=== PATIENT | female | born 1960 | race American Indian/Alaskan Native ===

== ENCOUNTER 2017-03-25 06:15 | Inpatient (IN) | payer MEDICARE, MEDICAID ==
[2017-03-17 09:26] VITALS: BMI 39.0
[2017-03-25] MEDS ORDERED: Liquid Adhesive TOP ONE (07:47)
[2017-03-25] MEDS ORDERED: Bupivacaine 0.5% Inj(30mL) ONE (07:47)
[2017-03-25] MEDS ORDERED: Lidocaine 1% Inj (20ml) ONE (07:47)
[2017-03-25] MEDS ORDERED: Propofol 10 mg/ml Inj (20 ML) ONE (07:49)
[2017-03-25] MEDS ORDERED: Midazolam 2 MG/2 ML VIAL ONE (07:49)
[2017-03-25] MEDS ORDERED: Rocuronium 10 mg/ml (5 ml) ONE (08:16)
[2017-03-25] MEDS ORDERED: Phenylephrine 10 mg/ml Inj ONE (09:02)
[2017-03-25] MEDS ORDERED: Labetalol 5 mg/ml Inj 20ML ONE (10:05)
[2017-03-25] MEDS ORDERED: Morphine 1 mg/ml preservative-free Inj(Duramorph) ONE (10:51)
[2017-03-25] MEDS ORDERED: Sevoflurane - Inhalation Anesthetic Liq (250 ml) ONE (11:37)
[2017-03-25] MEDS ORDERED: Neostigmine Methylsulfate 3mg/3ml Syringe IV ONE (11:46)
[2017-03-25] MEDS ORDERED: Bupivacaine 0.25% Inj(30mL) ONE ×2 (11:54→12:10)
[2017-03-25] MEDS ORDERED: Desflurane Inhalation Anesthetic Liq (240 ml) ONE (11:58)
[2017-03-25] MEDS ORDERED: ceFAZolin 2 GM in Sodium Chloride 0.9% 100 ML IVPB SCH (13:30)
[2017-03-25] MEDS ORDERED: HYDROmorphone 0.5 mg/0.5 ml ISec IVP PRN (13:37)
--- NOTE | 2017-03-25 13:40 | PCM.SURG1 ---
Surgeon's Initial Post Op Note - Surgeon's Notes Surgeon: Dr. Owusu Art Handler: J Luis Jimenez, PGY-3; Claudia Jimenez, PGY-1 Type of Anesthesia: General LMA, Block Regional (popliteal block) Anesthesia Administered By: Dr. Dukes Pre-Operative Diagnosis: Left foot- painful collapsing pes planovalgus deformity secondary to posterior tibial tendon dysfunction; painful bunion deformity; equinus deformity Operative Findings: See dictation. Hemostasis: PTT at 325mmHg. Materials: Synthes 6.5x 45mm partially threaded cannulated screw; [employer] AlloPure tricortical Barajas wedge size 8; Synthes 3.0x30mm and 3.0x40mm cannulated screws ; [employer] Biotenodesis screw size [id number] Post-Operative Diagnosis: Same as above Operation Performed: Left foot- medial calcaneal slide osteotomy with screw fixation; Barajas calcaneal osteotomy with graft insertion; Lapidus with screw fixation; lateral release of the 1st interspace and medial 1st MPJ capsulorraphy ; FDL transfer with biotenodesis screw; tendoachilles lengthening Specimen/Specimens Removed: None Estimated Blood Loss: EBL {In ML}: 20 Blood Products Given: N/A Drains Used: No Drains Post-Op Condition: Good Date of Surgery/Procedure: 03/25/17 Time of Surgery/Procedure: 09:00
[2017-03-25] MEDS ORDERED: Lactated Ringer's 1,000 ML IV SCH (13:45)
--- NOTE | 2017-03-25 14:40 | RAD ---
PROCEDURE: Left heel HISTORY: s/p Left foot surgery COMPARISON: TECHNIQUE: Two views through a plaster cast FINDINGS: There is a large screw running longitudinally through the calcaneus fixating a calcaneal fracture. Screws are also seen in the midfoot IMPRESSION: As above
--- NOTE | 2017-03-25 14:41 | RAD ---
PROCEDURE: Left foot HISTORY: s/p Left foot surgery COMPARISON: TECHNIQUE: Three views were obtained through plaster cast FINDINGS: There is a large screw fixating a calcaneal fracture. There are 2 crossing screws at the base of the 1st metatarsal and 1st cuneiform IMPRESSION: As above
--- NOTE | 2017-03-25 19:50 | CP.PCM.HP ---
History of Present Illness - History of Present Illness History of Present Illness: CC: S/P left foot surgery Patient is a 56 y/o with pmhx of copd, htn, hld, ulcerative colitis, neuropathy , fibromyalgia whom presented today for left foot surgery. Patient states she has been having foot pain for many years, tried pain management with no relief thus decided to under surgery today. Patient is admitted for post op observation. Patient had Left foot- medial calcaneal slide osteotomy with screw fixation; Barajas calcaneal osteotomy with graft insertion; Lapidus with screw fixation; lateral release of the 1st interspace and medial 1st MPJ capsulorraphy; FDL transfer with biotenodesis screw; tendoachilles lengthening. Patient states she' s doing well post op. States the left foot is numb, currently no pain. Denies nausea, vomiting or diarrhea, no belly pain. No fever or chills. No sob or cp. PMHx: copd, htn, hld, ulcerative colitis, neuropathy, fibromyalgia PSHx: partial thyroidectomy, right ear surgery, FMHx: non contributory Social: smokes 2-3 cigarettes per day, denies alcohol or illicit drug use. retired, able to ambulate before surgery. Home meds: as per chart Allergy: sulfa Present on Admission - Present on Admission Any Indicators Present on Admission: No History of DVT/PE: No History of Uncontrolled Diabetes: No Urinary Catheter: No Decubitus Ulcer Present: No History Surgical Site Infection Following: Orthopedic Procedures Review of Systems - Review of Systems All systems: reviewed and no additional remarkable complaints except Review of Systems: 12 point ROS reviewed, all negative except as per HPI. Past Patient History - Infectious Disease Hx of Infectious Diseases: None - Tetanus Immunizations Tetanus Immunization: Unknown - Past Medical History & Family History Past Medical History?: Yes - Past Social History Smoking Status: Light Smoker < 10 Cigarettes Daily Alcohol: None Drugs: Denies Home Situation {Lives}: With Family - CARDIAC Hx Pacemaker: No - PULMONARY Hx Respiratory Disorders: No - NEUROLOGICAL Hx Paralysis: No - HEENT Hx HEENT Problems: No - RENAL Hx Chronic Kidney Disease: No - ENDOCRINE/METABOLIC Hx Endocrine Disorders: No - HEMATOLOGICAL/ONCOLOGICAL Hx Blood Transfusions: No - INTEGUMENTARY Hx Dermatological Problems: No - MUSCULOSKELETAL/RHEUMATOLOGICAL Hx Musculoskeletal Disorders: Yes - GASTROINTESTINAL Hx Gastrointestinal Disorders: Yes Hx Colitis: Yes - GENITOURINARY/GYNECOLOGICAL Hx Genitourinary Disorders: No - PSYCHIATRIC Hx Emotional Abuse: No Hx Physical Abuse: No Hx Substance Use: No - SURGICAL HISTORY Hx Surgeries: Yes - ANESTHESIA Hx Anesthesia Reactions: Yes ("VERY TIRED AFTER EGD 10/04/14"/ PERIODS OF NAUSEA ) Hx Malignant Hyperthermia: No Meds Allergies/Adverse Reactions: Allergies Allergy/AdvReac Type Severity Reaction Status Date / Time Sulfa (Sulfonamide Allergy Severe RASH Verified 03/25/17 21:03 Antibiotics) Physical Exam - Constitutional Appears: No Acute Distress - Head Exam Head Exam: ATRAUMATIC, NORMAL INSPECTION, NORMOCEPHALIC - Eye Exam Eye Exam: EOMI, Normal appearance, PERRL. absent: Scleral icterus Pupil Exam: NORMAL ACCOMODATION - ENT Exam ENT Exam: Mucous Membranes Moist - Neck Exam Neck exam: Positive for: Normal Inspection - Respiratory Exam Respiratory Exam: Clear to Auscultation Bilateral, NORMAL BREATHING PATTERN. absent: Rales, Rhonchi, Wheezes, Respiratory Distress, Stridor - Cardiovascular Exam Cardiovascular Exam: REGULAR RHYTHM, RRR, +S1, +S2. absent: Gallop, JVD, Rubs, Systolic Murmur - GI/Abdominal Exam GI & Abdominal Exam: Normal Bowel Sounds, Soft. absent: Diminished Bowel Sounds , Distended, Firm, Guarding, Rebound, Rigid, Tenderness - Extremities Exam Additional comments: Normal inspection of the right foot, no pitting edema. Left foot and leg with clean dressing, no overt signs of bleeding. - Back Exam Back exam: NORMAL INSPECTION - Neurological Exam Neurological exam: Alert, Oriented x3 - Psychiatric Exam Psychiatric exam: Normal Affect, Normal Mood - Skin Skin Exam: Dry, Normal Color, Warm Results - Vital Signs Recent Vital Signs: Last Vital Signs Temp 98.5 F 03/25/17 16:37 Pulse 72 03/25/17 17:37 Resp 14 03/25/17 17:37 BP 149/82 03/25/17 17:37 Pulse Ox 98 03/25/17 17:37 Assessment & Plan - Assessment and Plan (Free Text) Assessment: Patient is a 56 y/o with pmhx of copd, htn, hld, ulcerative colitis, neuropathy , fibromyalgia whom presented today for left foot surgery. Patient is being admitted for post op observation. Plan: 1)Left foot- painful collapsing pes planovalgus deformity secondary to posterior tibial tendon dysfunction; painful bunion deformity; equinus deformity S/P repair. - post op care as per podiatry service - pain management - PT/OT - On Lovenox for dvt prophylaxis 2) HTN- continue with lisinopril, and Lopressor. 3) COPD- stable - continue with duoneb/Ventolin prn, symbicort, pulmocort, and spiriva. 4) Ulcerative colitis - continue with mesalamine supp 5) fibromyalgia and neuropathy- continue with lyrica, and percocet prn 6) Tobacco cessation: nicotine patch. 7) Gi prophylaxis: Pepcid Patient seen, examined and case discussed with Dr Suarez. - Date & Time Date: 03/25/17 Time: 20:05
[2017-03-25] MEDS ORDERED: Albuterol-Ipratrop 3 mg / 0.5 (3 ml) UD IH PRN (20:51)
[2017-03-25] MEDS ORDERED: Albuterol HFA 90 mcg/actuation (8 g) IH PRN (20:51)
[2017-03-25] MEDS ORDERED: Oxycodone/Acetaminophen 10/325 mg Tab PO PRN (20:51)
[2017-03-25] MEDS ORDERED: Pneumococcal 23-Valent Vaccine IM ONE (21:28)
[2017-03-25] MEDS ORDERED: Influenza Vaccine 60 mcg/0.5 mL SYR (4YR UP) IM ONE (21:28)
[2017-03-25] MEDS ORDERED: Albuterol 0.5% Inhal Sol (2.5 mg/0.5 ml) UD IH PRN (21:37)
[2017-03-25] MEDS: Budesonide 3 mg ER Cap PO SCH (23:08)
[2017-03-26] MEDS ORDERED: Albuterol 0.5% Inhal Sol (2.5 mg/0.5 ml) UD IH SCH (02:00)
[2017-03-26] MEDS ORDERED: Albuterol 0.083% Inhal Sol (2.5 mg/3 mL) UD INH SCH (02:00)
[2017-03-26 07:47] LABS: BASO # 0.01 K/mm3 (0.0-2.0); BASO % 0.1 % (0.0-3.0); GRAN # 8.82 (1.4-6.5); GRAN % 78.6 % (50.0-68.0); HEMOGLOBIN 10.7 g/dL (12.0-16.0); LYMPH # 1.7 (1.2-3.4); MEAN CELL VOLUME 82.6 fl (80.0-105.0); MEAN CORPUSCULAR HEMOGLOBIN 27.7 pg (25.0-35.0); MEAN CORPUSCULAR HGB CONC 33.5 g/dl (31.0-37.0); MEAN PLATELET VOLUME 10.7 fl (7.0-11.0); MONO # 0.7 (0.1-0.6); MONO % 6.3 % (1.0-6.0); RBC 3.86 10^6/uL (3.5-6.1); RED CELL DISTRIBUTION WIDTH 13.8 % (11.5-14.5); WHITE BLOOD COUNT 11.2 10^3/ul (4.5-11.0)
[2017-03-26 08:05] LABS: BLOOD UREA NITROGEN 23 mg/dL (7-21); CALCIUM 9.2 mg/dL (8.4-10.5); GFR AFRICAN-AMERICAN > 60; GFR NON-AFRICAN AMERICAN 57
[2017-03-26] MEDS ORDERED: Non Formulary Medication (Budesonide/Formoterol Fumarate [Symbicort 160-4.5 Mcg Inhaler] 2 IH SCH (10:00)
[2017-03-26] MEDS: Enoxaparin 40 mg Syringe SC SCH (10:10)
[2017-03-26] MEDS: Budesonide 3 mg ER Cap PO SCH ×2 (10:15→18:06)
[2017-03-26] MEDS: Fluticasone Nasal 50 mcg/Spray NS SCH (10:15)
[2017-03-26] MEDS: Tiotropium 18 mcg Cap For Inhalation IH SCH (10:16)
--- NOTE | 2017-03-26 15:53 | RAD ---
PROCEDURE: Fluoroscopy up to 1 hour HISTORY: O.R.I.F. LEFT FOOT COMPARISON: TECHNIQUE: Fluoroscopy was provided in the operating room. 93.2 seconds of fluoro time. Three images were submitted FINDINGS: Hardware is seen in the calcaneus and the base of the 1st metatarsal and cuneiform. IMPRESSION: As above
[2017-03-26] MEDS ORDERED: Oxycodone/Acetaminophen 10/325 mg Tab PO PRN (16:35)
--- NOTE | 2017-03-26 21:54 | PN ---
DATE: CHIEF COMPLAINT AND HISTORY OF PRESENT ILLNESS: Patient has no complaints of any chest pain, shortness of breath, or headaches. She states she does have pain in the left foot; her pain is controlled with medications. PHYSICAL EXAMINATION: VITAL SIGNS: Temperature 98.5, pulse of 71, blood pressure 122/82, respirations 20. GENERAL: The patient is lying in bed, flat, comfortable. HEENT: No oral lesion. Anicteric sclerae. Moist mucosa. NECK: No JVD, adenopathy, or thyromegaly. CARDIOVASCULAR: S1 and S2, regular. No murmurs, rubs, or gallops. LUNGS: Clear to auscultation bilaterally. No wheeze, rales, or rhonchi. ABDOMEN: Bowel sounds are positive, soft, nontender and nondistended. EXTREMITIES: No cyanosis, clubbing or edema. LABORATORY DATA: White count of 11.2, creatinine is 1.0. ASSESSMENT: 1. Status post medial calcaneal osteotomy, screw fixation. 2. Barajas calcaneal osteotomy, postop day #1 with graft insertion. 3. Ulcerative colitis. 4. Fibromyalgia. 5. Hypertension. 6. Dyslipidemia. 7. Severe chronic obstructive pulmonary disease. PLAN: The patient is currently comfortable. Patient is on albuterol, she is going to continue with Flonase. She is on Lipitor for dyslipidemia and she is on Lovenox for DVT prophylaxis. She is on a nicotine patch for smoking. She is on mesalamine for her ulcerative colitis. Patient is on lisinopril for her hypertension. She pain medications. Filemon Alexandra MD
[2017-03-27 07:45] LABS: BASO # 0.04 K/mm3 (0.0-2.0); BASO % 0.4 % (0.0-3.0); EOS # 0.3 (0.0-0.7); EOS % 2.4 % (1.5-5.0); GRAN # 5.63 (1.4-6.5); GRAN % 50.5 % (50.0-68.0); HEMOGLOBIN 12.1 g/dL (12.0-16.0); LYMPH # 4.6 (1.2-3.4); LYMPH % 41.1 % (22.0-35.0); MEAN CELL VOLUME 84.2 fl (80.0-105.0); MEAN CORPUSCULAR HEMOGLOBIN 27.7 pg (25.0-35.0); MEAN CORPUSCULAR HGB CONC 32.9 g/dl (31.0-37.0); MEAN PLATELET VOLUME 11.1 fl (7.0-11.0); MONO # 0.6 (0.1-0.6); MONO % 5.6 % (1.0-6.0); RBC 4.37 10^6/uL (3.5-6.1); WHITE BLOOD COUNT 11.2 10^3/ul (4.5-11.0)
[2017-03-27 08:00] LABS: BLOOD UREA NITROGEN 20 mg/dL (7-21); GFR AFRICAN-AMERICAN > 60; GFR NON-AFRICAN AMERICAN > 60
--- NOTE | 2017-03-27 08:42 | OP ---
PROCEDURE DATE: 03/26/2017 PREOPERATIVE DIAGNOSES: 1. Left foot painful and collapsing pes planovalgus deformity secondary to posterior tibial tendon dysfunction. 2. Left foot painful hallux abducto valgus deformity with first ray hypermobility secondary to midfoot collapse. 3. Left ankle painful and symptomatic equinus deformity. POSTOPERATIVE DIAGNOSES: 1. Left foot painful and collapsing pes planovalgus deformity secondary to posterior tibial tendon dysfunction. 2. Left foot painful hallux abducto valgus deformity with first ray hypermobility secondary to midfoot collapse. 3. Left ankle painful and symptomatic equinus deformity. NAME OF THE PROCEDURES: 1. Left foot medial displacement calcaneal osteotomy with screw fixation. 2. Left foot Barajas calcaneal osteotomy with graft insertion. 3. Left foot first metatarsal cuneiform incision with screw fixation, lateral release within in the first interspace and medial capsulorrhaphy of the first MPJ. 4. Left foot flexor digitorum longus tendon transfer using Bio-Tenodesis screw. 5. Left ankle Achilles tendon lengthening via triple hemisection of the tendon. SURGEON: Nayana Owusu DPM. BANKING TEACHER: J Luis Jimenez DPM, PGY3 and Lewis Jimenez DPM, PGY1. FINISH CLEANER: Dr. Dukes. ANESTHESIA: General with popliteal block. INDICATIONS: The patient is a 56-year-old female with past medical history of fibromyalgia with the above diagnoses. She presented to Dr. Owusu with a flexible flatfoot deformity, was then collapsed due to weakening of her posterior tibial tendon on the left foot. An MRI was ordered and it revealed a partial tear within her posterior tibial tendon. The patient has conservative treatment at this time and I request surgical intervention. The patient signed the consent after careful explanation of risks, benefits, complications and alternatives for surgical procedure. No guarantees were given nor implied. 2 g of IV Ancef were given to the patient prior to procedure. The patient's n.p.o. status was confirmed prior to taking the patient to the OR. PREPARATION: The patient was brought to the operating room and placed on the operating room table in supine position. Time-out was performed for identification of the correct patient and the correct procedure. After induction of general anesthesia, a well-padded pneumatic thigh tourniquet . The pneumatic thigh tourniquet was inflated to 325 mmHg and the procedure began. PROCEDURE #1: Left foot medial displacement calcaneal osteotomy with screw fixation. Attention was placed to the lateral aspect to the patient's left foot. Using surgical marking pen, intraoperative fluoroscopy and freer elevator present. An incision line was marked using a surgical marking pen. A #15 blade was used to make an approximately 5 cm oblique incision, starting 1 cm posterior to the tip of the lateral malleolus and 1 cm anterior to the Achilles tendon insertion. The incision of the calcaneus deep to the plantar fascia. The incision was deepened through the subcutaneous tissue using sharp and blunt dissection. Care was taken to identify and retract all vital neurovascular structures. All bleeders were cauterized and ligated as necessary. A left periosteal incision was made in the same direction as the original skin incision. The osteotomy site was adequately exposed by reflecting the periosteal both medially and laterally. At this time, a sagittal saw was used to create an oblique osteotomy of the calcaneus to lateral to medial. The depth of the saw blade was controlled with a approach. The osteotomy was completed through the medial cortex using an osteotome and mallet. At this time, the posterior calcaneal fragment was medially displaced manually and 0.062 inch K-wire was inserted across the osteotomy site for provisional fixation. AP, lateral, and hindfoot serial intraoperative x-rays were taken, and adequate medial transposition was appreciated. Next, using standard AO principle and technique, a Synthes 6.5 mm x 45 mm partially threaded cannulated screw was inserted across the osteotomy site with maximum compression noted. The screw was inserted percutaneously by making a small stab incision at the posterior aspect of the heel. Additional intraoperative x-rays were taken and it was confirmed that the posterior facet of the subtalar joint. The correction of the deformity was assessed at this time and was noted to be excellent with a significant reduction in hindfoot valgus deformity. A surgical site was now irrigated with a copious amount of sterile normal saline. Deep tissue closure was now performed using 2-0 Vicryl. The subcutaneous tissues were then reapproximated and coapted using 4-0 Monocryl, the skin was then reapproximated and coapted using 4-0 nylon, in an interrupted horizontal mattress suture technique. PROCEDURE #2: Left foot Barajas calcaneal osteotomy with graft insertion. Attention was directed to the lateral aspect of the left foot where an approximately 6-cm oblique incision was created at the lateral aspect approximately one fingerbreadth anterior to the sinus tarsi. The incision was made to include the calcaneocuboid joint which was marked using intraoperative fluoroscopy and freer elevator . The incision was then deepened through the subcutaneous tissues using sharp and blunt dissection. Care was taken to identify and retract all vital neurovascular structures. All bleeders were cauterized and ligated as necessary. At this time, the peroneal tendons and the extensor digitorum brevis muscle belly were visualized. Using a fresh #15 blade, a linear periosteal incision was created between the extensor digitorum brevis muscle belly and the peroneal tendons. The peroneal tendons were then gently retracted to keep them away from the operative field. The of the EDB muscle belly were then carefully reflected from the calcaneus in order to expose the dorsal of the bones of the osteotomy cut. At this time, the calcaneal cuboid joint was identified distally. The periosteum was then reflected both superiorly and inferiorly starting about 1 cm proximal to calcaneal cuboid joint. Next, using a sagittal saw, an osteotomy was created from lateral to medial within the calcaneus, approximately 1.5 cm proximal to the calcaneal cuboid joint. Care was taken to ensure that the medial cortex was preserved. Once the osteotomy was completed, a Hintermann retractor was placed with two 0.062 inch K-wires inserted around other side of the osteotomy. The osteotomy site was then gently distracted. A size 8 [employer] tricortical bone wedge was now inserted within the calcaneal osteotomy site. The bone wedge was then tamped flush against the bone surface using a bone tamp and a mallet. The Hintermann retractor and K-wires were now removed. At this time, lengthening of the lateral column of the patient's foot was appreciated with a significant reduction in forefoot and midfoot abduction. This was also confirmed using intraoperative fluoroscopy. The surgical wound was now irrigated with a copious amount of sterile normal saline. Deep tissue closure was now performed with 2-0 Vicryl. The subcutaneous tissues were then reapproximated and coapted using 4-0 Monocryl. The skin was then reapproximated and coapted using 4-0 nylon in an interrupted horizontal mattress suture technique. PROCEDURE#3: Left foot first metatarsal cuneiform incision with screw fixation, lateral release within in the first interspace and medial capsulorrhaphy of the first MPJ. Attention was then directed to the dorsomedial aspect of the foot. Intraoperative fluoroscopy was used to micheline the location of the first metatarsal cuneiform joint. A 5 cm linear longitudinal incision was created overlying the joint, medial to the EHL tendon. The dissection was deepened through the subcutaneous tissues using sharp and blunt dissection. Care was taken to identify and retract all vital neurovascular structures. All bleeders were cauterized and ligated as necessary. A linear periosteal incision was created overlying the joint. A Briseno elevator was used to reflect the periosteal tissues medially and laterally to expose the joint. Any plantar ligament soft tissue attachments were also released to mobilize the joint. Once adequate exposure and mobility of the joint was achieved, a sagittal saw was used to resect the cartilaginous surfaces of the distal aspect of the medial cuneiform and metatarsal base. Next, a 0.062 inch K-wire was then inserted into the distal aspect of the first metatarsal from medial to lateral to serve as a joystick to correct the deformity in central plane. The K-wire was used to invert the pronator first metatarsal to help reduce the . This corrected position was held in place, while two 0.062 inch K-wires were driven across the first metatarsal cuneiform incision site in a crisscross pattern for a temporary fixation. Intraoperative fluoroscopy was used to verify the alignment of the K-wires, and there was noted to an excellent alignment with no violation into the navicular cuneiform joint. Next, using standard AO principles and technique, two Synthes cannulated screws measuring 3.0 x 30 mm and 3.0 x 40 mm were inserted above the both K-wires across the incision site with excellent compression noted. The K-wires were then removed and final radiographs were taken to ensure proper alignment of the screws. Upon assessing the correction of the deformity, it was noted the hallus still appeared to be in a first metatarsal, the decision was now made to perform the lateral release within the first interspace to correct this. Using a fresh #15 blade, an approximately 1.5 cm linear incision was created within the first interspace. The incision was bluntly dissected down to the subcutaneous tissues and down to the level of the lateral aspect of the first MPJ capsule. The adductor tendon was identified and transected at its attachment to the proximal phalanx of the hallux. The lateral first MPJ capsule was incised and . The hallux was then to release the lateral soft tissue contractures; however a slight abduction decided to confirm a medial capsulorrhaphy of first MPJ to correct this. Using a #15 blade, an 1.5 cm incision was created over the medial aspect of the first MPJ. The incision was deepened to the subcutaneous tissues using sharp and blunt dissection. Care was taken to identify and retract all vital neurovascular structures. All bleeders were cauterized and ligated as necessary. A linear medial capsular incision was then created and a small wedge of the medial capsule was resected. The medial capsule was then reapproximated and coapted using 2-0 Vicryl. The thoroughly irrigated with copious amount of sterile normal saline. Upon assessment of the correction of the deformity, the hallux no longer appeared to be in an abducted position. The subcutaneous tissues were reapproximated and coapted using 4-0 Monocryl. The skin was then reapproximated and coapted using 4-0 nylon. PROCEDURE #4: Left foot flexor digitorum longus tendon transfer using a Bio-Tenodesis screw. Attention was now directed at the medial aspect of the patient's foot. procedure was now extended further proximally and plantarly to approximately 2 cm distal to the navicular tuberosity. The incision was deepened to the subcutaneous tissue using sharp and blunt dissection. Care was taken to identify and retract all vital neurovascular structures. All bleeders were cauterized and ligated as necessary. Resection was bluntly carried down to the level of the posterior tibial tendon insertion and tuberosity. was identified and was mobilized with running soft tissue attachment. The posterior tibial tendon was then gently retracted superiorly to find the FDL tendon sheath. Once it was visualized, small dissecting scissors were used to dissect through the sheath and follow the FDL tendon course as possible. The FDL tendon. A [place] drain was looped around the tendon . The FDL tendon was then transected just proximal to the level of the . A #2 FiberWire was then used to the distal aspect of the FDL tendon. The tendon was then incised using a was made to assess the lateral aspect of the midfoot. Using an appropriately sized reamer, the navicula was reamed over the inserted guide pin to create a for insertion of the Bio-Tenodesis screw. The guide pin was then removed. The tendon was then inserted into a nitinol loop and was inserted from medial to lateral within the navicula. A #2 FiberWire laterally to retract the tendon within the navicular bone tunnel with further maximum plantar flexion and inversion. A size 7.5 mm x 15 mm Arthrex Bio-Tenodesis screw was then inserted into the navicula medial to . At this time, excellent with a medial arch now further evident. Then surgical site was now irrigated with a copious amount of sterile normal saline. Deep tissue closure was performed with 2-0 Vicryl. The subcutaneous tissues were reapproximated and coapted using 4-0 Monocryl. The skin was then reapproximated and coapted using 4-0 nylon in an alternating simple and horizontal mattress suture technique. PROCEDURE#5: Left foot Achilles tendon pinning via triple hemisection of the tendon. Upon assessing the dorsiflexion range of motion of the left ankle, an equinus deformity was noted to be present with restriction of ankle dorsiflexion. It was decided to pursue an Achilles tendon lengthening procedure. Using a fresh #15 blade, a linear stab incision was created the Achilles tendon and approximately 2 cm proximal to its calcaneal insertion. The lateral fibers of the tendons were transected at . A second stab incision was created at approximately 1 cm proximal to the first one and the medial fibers of the Achilles tendon were transected. A third and final stab incision was created 1 cm proximal to the second one, and the lateral fibers were transected. The ankle was now forcibly dorsiflexed to adequately lengthen the tendon at all three transection sites. The correction of the deformity was assessed at this time and was noted to be excellent with ankle dorsiflexion beyond 90 degrees. Then stab incision sites were then irrigated with a copious amount of sterile normal saline. The incisions were then closed using 4-0 nylon. Approximately 10 mL of 0.5% Marcaine plain were used to block the saphenous nerve. All incision sites were then dressed with Xeroform, 4 x 4 gauze, ABD pads and Kerlix. A well-padded posterior splint was now applied to the left lower extremity while ensuring maintaining dorsiflexion. The attending Dr. Owusu was present throughout the entire case. Postoperative condition the patient tolerated the anesthesia with no complications. The patient was to the left lower extremity. This patient is to remain nonweightbearing to the left lower extremity with crutches. She is being admitted to the hospital for pain management and . The patient will be followed by Dr. Owusu while she remains in the hospital. She is to follow up with Dr. Owusu at her office on an outpatient basis upon discharge. J Luis Jimenez DPM Nayana Owusu DPM
[2017-03-27] MEDS: Enoxaparin 40 mg Syringe SC SCH (10:04)
[2017-03-27] MEDS: Budesonide 3 mg ER Cap PO SCH (10:05)
[2017-03-27] MEDS: Tiotropium 18 mcg Cap For Inhalation IH SCH (10:05)
[2017-03-27] MEDS: Fluticasone Nasal 50 mcg/Spray NS SCH (10:08)
--- NOTE | 2017-03-27 10:34 | PN ---
DATE: SUBJECTIVE: The patient has no complaints of any chest pain. No shortness of breath. No headaches or dizziness. PHYSICAL EXAMINATION VITAL SIGNS: Temperature is 99.2, pulse is 73, blood pressure 120/73, respirations 20. GENERAL: The patient is lying in bed, flat, comfortable. HEENT: No oral lesion. Anicteric sclerae. Moist mucosa. NECK: No JVD, adenopathy, or thyromegaly. CARDIOVASCULAR: S1 and S2, regular. No murmurs, rubs, or gallops. LUNGS: Clear to auscultation bilaterally. No wheeze, rales, or rhonchi. ABDOMEN: Bowel sounds are positive. Soft, nontender and nondistended. EXTREMITIES: No cyanosis, clubbing or edema. Left ankle is wrapped. ASSESSMENT 1. Status post medial calcaneal osteotomy, screw fixation. 2. Barajas calcaneal osteotomy, postoperative day #2 with graft insertion. 3. Ulcerative colitis, stable. 4. Fibromyalgia. 5. Hypertension. 6. Dyslipidemia. 7. Chronic obstructive pulmonary disease. 8. Chronic back pain. PLAN: The patient is receiving nebulizer treatments, is on Flonase. She is going to continue with budesonide. She is on Lipitor for dyslipidemia. She received a flu shot. She is on Lovenox for DVT prophylaxis. She is on Lyrica for her fibromyalgia. She is on the nicotine patch for her smoking. She is on mesalamine 4 g b.i.d. for her ulcerative colitis. She is on Spiriva. She is receiving pain medications with the Percocet. The patient is on a heart-healthy diet. Physical Therapy has evaluated the patient and stated the patient can go home with services. Filemon Alexandra MD
[2017-03-27] MEDS ORDERED: Albuterol 0.5% Inhal Sol (2.5 mg/0.5 ml) UD IH ONE (13:15)
[2017-03-27] MEDS ORDERED: Albuterol 0.5% Inhal Sol (2.5 mg/0.5 ml) UD IH SCH (14:00)
[2017-03-27] MEDS ORDERED: Albuterol 0.083% Inhal Sol (2.5 mg/3 mL) UD INH SCH (14:00)
--- NOTE | 2017-03-27 14:21 | CP.PCM.PN ---
Subjective - Date & Time of Evaluation Date of Evaluation: 03/27/17 Time of Evaluation: 14:13 - Subjective Subjective: Podiatric Surgery Pt was seen and evaluated at bedside in NAD. Relates minimal pain. Denies F/C/N/ V/SOB/CP. +void LE exam: Brisk CFT to all digits. AROM to all toes left foot. no pain upon calf palpation. Dressings with no strikethrough. c/d/i A/P: s/p POD#2 left foot pes planus reconstruction Medial calcaneal slide/Barajas/ [place]/DFL tendon transfer. doing well -Leave dressings c/d/i -continue NWB to affected foot with walker/scooter -Pt cleared from podiatry standpoint to be discharged home -Keflex PPX -Lovenox 40mg DVT PPX -follow up with me on thursday at the [facility] [place] [phone] -Appreciate inpt management. Pain meds as per Objective - Vital Signs/Intake and Output Vital Signs (last 24 hours): Temp Pulse Resp BP Pulse Ox 98.8 F 68 20 128/70 97 03/27/17 07:30 03/27/17 10:05 03/27/17 07:30 03/27/17 10:05 03/27/17 07:30 Intake and Output: 03/27/17 03/27/17 06:59 18:59 Intake Total 1080 Balance 1080 - Medications Medications: Current Medications Albuterol Sulfate (Albuterol 0.083% Inhal Karen (2.5 Mg/3 Ml) Ud) 2.5 mg INH [id number] [facility] Last Admin: 03/27/17 13:52 Dose: Not Given Albuterol/Ipratropium (Duoneb 3 Mg/0.5 Mg (3 Ml) Ud) 3 ml IH Q12H PRN PRN Reason: Wheezing Atorvastatin Calcium (Lipitor) 10 mg PO DAILY [facility] Last Admin: 03/27/17 10:05 Dose: 10 mg Budesonide (Entocort Ec) 3 mg PO BID [facility] Last Admin: 03/27/17 10:05 Dose: 3 mg Enoxaparin Sodium (Lovenox) 40 mg SC DAILY [facility] PRN Reason: Protocol Last Admin: 03/27/17 10:04 Dose: 40 mg Fluticasone Propionate (Flonase) 1 actuation NS DAILY [facility] Last Admin: 03/27/17 10:08 Dose: 1 spray Lisinopril (Zestril) 40 mg PO DAILY [facility] Last Admin: 03/27/17 10:05 Dose: 40 mg Mesalamine (Rowasa Enema) 4 gm RC BID [facility] Last Admin: 03/27/17 10:08 Dose: Not Given Metoprolol Tartrate (Lopressor) 50 mg PO BID [facility] Last Admin: 03/27/17 10:05 Dose: 50 mg Nicotine (Nicoderm Cq) 1 patch TD Q24H [facility] Last Admin: 03/27/17 10:03 Dose: 1 patch Non-Formulary Medication (Budesonide/Formoterol Fumarate [Symbicort 160-4.5 Mcg Inhaler]) 2 aer IH BID [facility] Oxycodone/Acetaminophen (Percocet 10/325 Mg Tab) 1 tab PO Q4H PRN PRN Reason: Pain, severe (8-10) Pregabalin (Lyrica) 75 mg PO QID [facility] Last Admin: 03/27/17 10:05 Dose: 75 mg Tiotropium [place] (Spiriva) 18 mcg IH DAILY [facility] Last Admin: 03/27/17 10:05 Dose: 18 mcg - Labs Labs: 03/27/17 07:00 03/27/17 07:00
[2017-03-27 16:56] VITALS: BP 120/81; PULSE 66; RESP 15; TEMP 98.6; O2SAT 96
== END 2017-03-27 17:30 | disposition home or self-care (01) | DRG 501 ==
LOC: SDS 06:15 → 5RSO 18:32 → SDS 03-26 16:27
PROVIDERS: ADMIT Internal Medicine Nephrology; ATTEND Internal Medicine Nephrology
PROC: 0LXW0ZZ Transfer Left Foot Tendon, Open Approach (ICD-10-PCS; principal; 2017-03-26)
PROC: 0L8P0ZZ Division of Left Lower Leg Tendon, Open Approach (ICD-10-PCS; 2017-03-26)
PROC: 0QHM04Z Insertion of Internal Fixation Device into Left Tarsal, Open Approach (ICD-10-PCS; 2017-03-26)
PROC: 0SQN0ZZ Repair Left Metatarsal-Phalangeal Joint, Open Approach (ICD-10-PCS; 2017-03-26)
PROC: 0QHP04Z Insertion of Internal Fixation Device into Left Metatarsal, Open Approach (ICD-10-PCS; 2017-03-26)
DX: M21.42 Flat foot [pes planus] (acquired), left foot (principal); M20.12 Hallux valgus (acquired), left foot; M21.072 Valgus deformity, not elsewhere classified, left ankle; M25.572 Pain in left ankle and joints of left foot; K51.90 Ulcerative colitis, unspecified, without complications; M79.7 Fibromyalgia; J44.9 Chronic obstructive pulmonary disease, unspecified; I10 Essential (primary) hypertension; G62.9 Polyneuropathy, unspecified; E78.5 Hyperlipidemia, unspecified; G89.29 Other chronic pain; M54.9 Dorsalgia, unspecified; F17.210 Nicotine dependence, cigarettes, uncomplicated; Z88.2 Allergy status to sulfonamides

== ENCOUNTER 2017-07-21 06:41 | Day surgery (SDC) | payer MEDICARE, MEDICAID ==
[2017-07-14 09:20] VITALS: BMI 38.2
[2017-07-21] MEDS ORDERED: Simethicone 40 mg/0.6 ml Liquid (30 ml) ONE (08:13)
[2017-07-21] MEDS ORDERED: Sodium Chloride 0.9% 1,000 ML IV SCH (08:15)
[2017-07-21] MEDS ORDERED: Propofol 10 mg/ml Inj (20 ML) ONE (08:16)
[2017-07-21 15:21] VITALS: BP 106/71; PULSE 64; RESP 16; TEMP 97.6; O2SAT 100
== END 2017-07-21 09:52 | disposition home or self-care (01) ==
LOC: ENDO 06:41
PROVIDERS: ATTEND Internal Medicine
DX: K51.80 Other ulcerative colitis without complications (principal); K63.5 Polyp of colon; K64.8 Other hemorrhoids; K62.89 Other specified diseases of anus and rectum
CPT/HCPCS: 45380; 88305; J2001; J2704; J7030; J7040

== ENCOUNTER 2018-03-22 16:07 | Emergency (ER) | payer MEDICAID, MEDICARE ==
[2018-03-22 16:08] VITALS: BMI 38.2
[2018-03-22] MEDS ORDERED: Sodium Chloride 0.9% 1,000 ML IV STA (16:28)
[2018-03-22 16:39] VITALS: TEMP 98.5
[2018-03-22] MEDS ORDERED: Alum-Mag Hydrox-Simethicone Susp (30 mL) PO STA (16:52)
[2018-03-22] MEDS ORDERED: Atrop/Hyosc/Scopal/PB Elixir (120 ml) PO STA (16:52)
--- NOTE | 2018-03-22 17:06 | ED PDOC ---
Arrival/HPI - General Chief Complaint: GI Problem Historian: Patient - History of Present Illness Narrative History of Present Illness (Text): 03/22/18 16:28 57 y/o F, with pmhx of copd, htn, hld, ulcerative colitis, neuropathy, and fibromyalgia, presents to the ED for evaluation of abdominal pain, nausea, vomiting and subjective fevers since past few days. Patient informs worsening symptoms since onset but denies taking anything for the presented symptoms at home. Patient informs symptoms are similar with last flare up of colitis experienced years ago. Patient denies any other associated somatic complaints. Patient denies any chills, headache, dizziness, chest pain, shortness of breath, dyspnea on exertion, cough, diarrhea, back pain, neck pain, or any other complaints. Patient informs recent travel to [facility] ([place]) in December. Patient reports recent diet changes to keto diet. PMD: Dr. Butt Time/Duration: < week Symptom Onset: Gradual Symptom Course: Unchanged Quality: Aching Context: Home Past Medical History - Provider Review Nursing Documentation Reviewed: Yes - Infectious Disease Hx of Infectious Diseases: None - Tetanus Immunization Tetanus Immunization: Unknown - Cardiac Hx Pacemaker: No - Pulmonary Hx Chronic Obstructive Pulmonary Disease (COPD): Yes - Neurological Hx Paralysis: No - HEENT Hx HEENT Disorder: No - Renal Hx Renal Disorder: No - Endocrine/Metabolic Hx Endocrine Disorders: No - Hematological/Oncological Hx Blood Transfusions: No - Integumentary Hx Dermatological Disorder: No - Musculoskeletal/Rheumatological Hx Musculoskeletal Disorders: Yes - Gastrointestinal Hx Gastrointestinal Disorders: Yes Hx Colitis: Yes - Genitourinary/Gynecological Hx Genitourinary Disorders: No - Psychiatric Hx Emotional Abuse: No Hx Physical Abuse: No Hx Substance Use: No - Surgical History Other/Comment: L BUNIONECTOMY -MEDIAL CALCANEAL SLIDE OSTEOTOMY WITH SCREW FIXATION,DEJESUS CALCANEAL OSTEOTOMY WITH GRAFT, - Anesthesia Hx Anesthesia: Yes Hx Anesthesia Reactions: No Hx Malignant Hyperthermia: No - Suicidal Assessment Feels Threatened In Home Enviroment: No Family/Social History - Physician Review Nursing Documentation Reviewed: Yes Family/Social History: No Known Family HX Smoking Status: Light Smoker < 10 Cigarettes Daily Hx Alcohol Use: No Hx Substance Use: No Hx Substance Use Treatment: No Allergies/Home Meds Allergies/Adverse Reactions: Allergies Sulfa (Sulfonamide Antibiotics) Allergy (Severe, Verified 07/21/17 07:32) RASH Home Medications: Home Meds Medication Instructions Recorded Confirmed Oxycodone HCl/Acetaminophen 10 mg PO TID PRN 10/05/14 07/21/17 [Percocet 10-325 mg Tablet] Albuterol Sulfate [Proventil Hfa] 0.09 mg IH PRN PRN 03/17/17 07/21/17 Albuterol/Ipratropium [Duoneb 3 3 ml IH BID 03/17/17 07/21/17 mg/0.5 mg (3 ml) UD] Budesonide/Formoterol Fumarate 2 aer IH BID 03/17/17 07/21/17 [Symbicort 160-4.5 Mcg Inhaler] Fluticasone Nasal [Flonase] 0.05 mg NS DAILY 03/17/17 07/21/17 Lisinopril [Zestril] 40 mg PO DAILY 03/17/17 07/21/17 Mesalamine 4 gm RC BID 03/17/17 07/21/17 Metoprolol Tartrate [Lopressor] 50 mg PO BID 03/17/17 07/21/17 Pregabalin [Lyrica] 75 mg PO QID 03/17/17 07/21/17 Simvastatin [Zocor] 20 mg PO DAILY 03/17/17 07/21/17 Tiotropium [Spiriva] 18 mcg IH DAILY 03/17/17 07/21/17 Mesalamine [Lialda] 4 tab PO DAILY 07/14/17 07/21/17 Omeprazole 40 mg PO DAILY 07/14/17 07/21/17 Review of Systems - Physician Review All systems were reviewed & negative as marked: Yes - Review of Systems Constitutional: absent: Fevers Respiratory: absent: SOB, Cough Cardiovascular: absent: Chest Pain Gastrointestinal: Abdominal Pain, Nausea, Vomiting. absent: Diarrhea Genitourinary Female: absent: Dysuria, Urine Output Changes Musculoskeletal: absent: Back Pain, Neck Pain Skin: absent: Rash Neurological: absent: Headache, Dizziness Physical Exam Vital Signs Reviewed: Yes Vital Signs Temp Pulse Resp BP Pulse Ox 03/22/18 16:28 98.5 F 71 143 H 143/80 100 Temperature: Afebrile Blood Pressure: Normal Pulse: Tachycardic Respiratory Rate: Normal Appearance: Positive for: Well-Appearing, Non-Toxic, Comfortable Pain Distress: None Mental Status: Positive for: Alert and Oriented X 3 - Systems Exam Head: Present: Atraumatic, Normocephalic Pupils: Present: PERRL Extroacular Muscles: Present: EOMI Conjunctiva: Present: Normal Mouth: Present: Moist Mucous Membranes Neck: Present: Normal Range of Motion Respiratory/Chest: Present: Clear to Auscultation, Good Air Exchange. No: Respiratory Distress, Accessory Muscle Use Cardiovascular: Present: Regular Rate and Rhythm, Normal S1, S2. No: Murmurs Abdomen: Present: Tenderness (mild left sided abdominal tenderness), Distention. No: Peritoneal Signs Back: Present: Normal Inspection Upper Extremity: Present: Normal Inspection. No: Cyanosis, Edema Lower Extremity: Present: Normal Inspection. No: Edema Neurological: Present: GCS=15, CN II-XII Intact, Speech Normal Skin: Present: Warm, Dry, Normal Color. No: Rashes Psychiatric: Present: Alert, Oriented x 3, Normal Insight, Normal Concentration Medical Decision Making ED Course and Treatment: 03/22/18 16:28 Impression: 57 year old female presents to the ED for evaluation of abdominal pain, nausea and vomiting. Differential Diagnosis included but are not limited to: --Colitis --Gastroenteritis --UC flare Plan: -- Labs -- Atropine -- Maalox -- Pepcid -- Reglan -- IV Fluids -- Urinalysis --CT a/p -- Reassess and disposition Prior Visits: Notes and results from previous visits were reviewed. Progress Notes: 03/22/18 19:50 Labs reviewed with no outstanding lab values. Pending CT a/p results pending. 03/22/18 20:22 CT a/p reveals pancolitis with small renal cyst. Patient made aware of CT imaging and desires to discuss with her fiancee on whether she opts for observation or going home. 03/22/18 20:32 Patient desires to go home and will follow up with her GI specialist. Reit eration of follow up and taking medications as prescribed provided to patient who demonstrates understanding. Scripts given. Return protocol provided. She is stable for discharge. - Lab Interpretations Lab Results: 03/22/18 17:00 03/22/18 17:00 Lab Results 03/22/18 17:00: Sodium 139, Potassium 4.0, Chloride 107, Carbon Dioxide 22, Anion Gap 14, BUN 16, Creatinine 0.9, Est GFR ( Amer) > 60, Est GFR (Non- Af Amer) > 60, Random Glucose 95, Calcium 9.8, Magnesium 2.0, Total Bilirubin 0.6, AST 43 H D, ALT 16, Alkaline Phosphatase 122, Total Protein 8.6 H, Albumin 4.5, Globulin 4.1, Albumin/Globulin Ratio 1.1, Lipase 89 03/22/18 17:00: WBC 7.8, RBC 4.63, Hgb 13.0, Hct 36.7, MCV 79.3 L D, MCH 28.1, MCHC 35.4, RDW 13.4, Plt Count 322, MPV 10.1, Neut % (Auto) 62.4, Lymph % (Auto) 28.3, [place] % (Auto) 6.4 H, Eos % (Auto) 2.6, Baso % (Auto) 0.3, Lymph # (Auto) 2.2, [place] # (Auto) 0.5, Eos # (Auto) 0.2, Baso # (Auto) 0.02, Absolute Neuts (auto) 4.87 I have reviewed the lab results: Yes - RAD Interpretation Narrative RAD Interpretations (Text): 03/22/18 20:16 CT Abdomen and Pelvis with IV contrast CLINICAL HISTORY: Hx of ulcerative colitis with llq pain TECHNIQUE: Axial computed tomography images of the abdomen and pelvis with intravenous contrast. 972.76 mGy-cm CONTRAST: With; Omnipaque 350 96ml COMPARISON: None provided. FINDINGS: LUNG BASES: Scattered cetrilobular emphysema is present. LIVER: Unremarkable. GALLBLADDER AND BILE DUCTS: S/p cholecystectomy. Surgical clips are noted in the gallbladder fossa. PANCREAS: Unremarkable. SPLEEN: Unremarkable. ADRENAL GLANDS: Unremarkable. KIDNEYS, URETERS, AND BLADDER: 7 mm complex lesion is present in the midpole of the right kidney laterally, small mass is not excluded. Consider short-term follow-up in 3-[address] urogram. STOMACH AND BOWEL: Small hiatal hernia is noted. Thick walled fluid filled colon is noted with involvement of all segments compatible with diffuse inflammatory pancolitis. APPENDIX: No evidence of acute appendicitis on CT examination. PERITONEUM: No free fluid. No free air. LYMPH NODES: No lymphadenopathy is evident. REPRODUCTIVE: Unremarkable as visualized. VASCULATURE: No evidence of abdominal aortic aneurysm. BONES: No aggressive appearing osseous lesion. No acute osseous pathology evident. MISCELLANEOUS: Small fat-containing umbilical hernia is noted. IMPRESSION: 1. Scattered cetrilobular emphysema is present. 2. Small hiatal hernia is noted. 3. Small fat-containing umbilical hernia is noted. 4. 7 mm complex lesion is present in the midpole of the right kidney laterally, small mass is not excluded. Consider short-term follow-up in 3-[address] urogram. 5. Thick walled fluid filled colon is noted with involvement of all segments compatible with diffuse inflammatory pancolitis. 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 All medical record entries made by the Scribe were at my direction and personally dictated by me. I have reviewed the chart and agree that the record accurately reflects my personal performance of the history, physical exam, medical decision making, and the department course for this patient. I have also personally directed, reviewed, and agree with the discharge instructions and disposition. Disposition/Present on Arrival - Present on Arrival Any Indicators Present on Arrival: No History of DVT/PE: No History of Uncontrolled Diabetes: No Urinary Catheter: No History of Decub. Ulcer: No History Surgical Site Infection Following: Orthopedic Procedures - Disposition Have Diagnosis and Disposition been Completed?: Yes Diagnosis: Pancolitis Disposition: HOME/ ROUTINE Disposition Time: 20:36 Patient Plan: Discharge Condition: FAIR Discharge Instructions (ExitCare): Ulcerative Colitis (ED) Print Language: FRENCH Additional Instructions: Please follow up with your GI specialist Please take your medications as prescribed. Prescriptions: Ciprofloxacin HCl [Cipro] 500 mg PO BID 10 Days #20 tab Methylprednisolone [Medrol Dose Pack (21 tabs)] 4 mg PO DAILY #21 mg Metronidazole [Flagyl] 500 mg PO DAILY 10 Days #10 tablet Referrals: Pio White MD [Medical Doctor] - Follow up with primary Forms: [employer] (Danish)
[2018-03-22 17:09] LABS: BASO # 0.02 K/mm3 (0.0-2.0); BASO % 0.3 % (0.0-3.0); EOS # 0.2 (0.0-0.7); EOS % 2.6 % (1.5-5.0); LYMPH # 2.2 (1.2-3.4); LYMPH % 28.3 % (22.0-35.0); MEAN CELL VOLUME 79.3 fl (80.0-105.0); MEAN CORPUSCULAR HEMOGLOBIN 28.1 pg (25.0-35.0); MEAN CORPUSCULAR HGB CONC 35.4 g/dl (31.0-37.0); MEAN PLATELET VOLUME 10.1 fl (7.0-11.0); MONO # 0.5 (0.1-0.6); MONO % 6.4 % (1.0-6.0); RBC 4.63 10^6/uL (3.5-6.1); RED CELL DISTRIBUTION WIDTH 13.4 % (11.5-14.5); WHITE BLOOD COUNT 7.8 10^3/uL (4.5-11.0)
[2018-03-22 17:18] LABS: BLOOD UREA NITROGEN 16 mg/dL (7-21); CALCIUM 9.8 mg/dL (8.4-10.5); GFR NON-AFRICAN AMERICAN > 60; LIPASE 89 U/L (23-300)
[2018-03-22 17:23] LABS: ALB/GLOB RATIO 1.1 (1.1-1.8); ALBUMIN 4.5 g/dL (3.0-4.8); ALT/SGPT 16 U/L (7-56); AST/SGOT 43 U/L (14-36)
[2018-03-22 18:11] VITALS: RESP 16
[2018-03-22] MEDS ORDERED: Iohexol 350 MG/100 ML VIAL ONE (18:28)
--- NOTE | 2018-03-22 21:01 | CP.PCM.HP ---
History of Present Illness - History of Present Illness History of Present Illness: Drafted Note Lillie Mcfadden cc: fevers and LLQ pain 57 y/o F, with pmhx of copd, htn, hld, ulcerative colitis, neuropathy, and fi bromyalgia, presents to the ED for evaluation of abdominal pain, nausea, vomiting and subjective fevers since past few days. Patient informs worsening symptoms since onset but denies taking anything for the presented symptoms at home. Patient informs symptoms are similar with last flare up of colitis experienced years ago. Patient denies any other associated somatic complaints. Patient denies any chills, headache, dizziness, chest pain, shortness of breath, dyspnea on exertion, cough, diarrhea, back pain, neck pain, or any other complaints. Patient informs recent travel to [facility] in December. Patient reports recent diet changes to keto diet. PMD: Dr. Butt PMHx: copd, htn, hld, ulcerative colitis, neuropathy, and fibromyalgia PSHx: L BUNIONECTOMY -MEDIAL CALCANEAL SLIDE OSTEOTOMY WITH SCREW FIXATION,DEJESUS CALCANEAL OSTEOTOMY WITH GRAFT Meds: Allergies: SocialHx: light smoker (<10 cigarettes daily), no EtOH, no rec drug FamHx: ED Vitals: Temp 98.5, HR 71, RR BP 16, 143/80, SaO2 100% CT A/P: pancolitis with small renal cyst (7mm). Small hiatal hernia and small fat-containing umbilical hernia. Past Patient History - Infectious Disease Hx of Infectious Diseases: None - Tetanus Immunizations Tetanus Immunization: Unknown - Past Medical History & Family History Past Medical History?: Yes - Past Social History Smoking Status: Light Smoker < 10 Cigarettes Daily - CARDIAC Hx Pacemaker: No - PULMONARY Hx Chronic Obstructive Pulmonary Disease (COPD): Yes - NEUROLOGICAL Hx Paralysis: No - HEENT Hx HEENT Problems: No - RENAL Hx Chronic Kidney Disease: No - ENDOCRINE/METABOLIC Hx Endocrine Disorders: No - HEMATOLOGICAL/ONCOLOGICAL Hx Blood Transfusions: No - INTEGUMENTARY Hx Dermatological Problems: No - MUSCULOSKELETAL/RHEUMATOLOGICAL Hx Musculoskeletal Disorders: Yes - GASTROINTESTINAL Hx Gastrointestinal Disorders: Yes Hx Colitis: Yes - GENITOURINARY/GYNECOLOGICAL Hx Genitourinary Disorders: No - PSYCHIATRIC Hx Emotional Abuse: No Hx Physical Abuse: No Hx Substance Use: No - SURGICAL HISTORY Other/Comment: L BUNIONECTOMY -MEDIAL CALCANEAL SLIDE OSTEOTOMY WITH SCREW FIXATION,DEJESUS CALCANEAL OSTEOTOMY WITH GRAFT, - ANESTHESIA Hx Anesthesia: Yes Hx Anesthesia Reactions: No Hx Malignant Hyperthermia: No Meds Home Medications: Home Medication List Medication Instructions Recorded Confirmed Type Ciprofloxacin HCl [Cipro] 500 mg PO BID 10 Days #20 tab 03/22/18 Rx Methylprednisolone [Medrol Dose 4 mg PO DAILY #21 mg 03/22/18 Rx Pack (21 tabs)] Metronidazole [Flagyl] 500 mg PO DAILY 10 Days #10 tablet 03/22/18 Rx Allergies/Adverse Reactions: Allergies Allergy/AdvReac Type Severity Reaction Status Date / Time Sulfa (Sulfonamide Allergy Severe RASH Verified 07/21/17 07:32 Antibiotics) Results - Vital Signs Recent Vital Signs: Last Vital Signs Temp 98.5 F 03/22/18 16:28 Pulse 77 03/22/18 18:31 Resp 16 03/22/18 18:31 BP 133/71 03/22/18 18:31 Pulse Ox 897 H 03/22/18 18:31 - Labs Result Diagrams: 03/22/18 17:00 03/22/18 17:00 Labs: Laboratory Results - last 24 hr 03/22/18 03/22/18 17:00 17:00 WBC 7.8 RBC 4.63 Hgb 13.0 Hct 36.7 MCV 79.3 L D MCH 28.1 MCHC 35.4 RDW 13.4 Plt Count 322 MPV 10.1 Neut % (Auto) 62.4 Lymph % (Auto) 28.3 [place] % (Auto) 6.4 H Eos % (Auto) 2.6 Baso % (Auto) 0.3 Lymph # (Auto) 2.2 [place] # (Auto) 0.5 Eos # (Auto) 0.2 Baso # (Auto) 0.02 Absolute Neuts (auto) 4.87 Sodium 139 Potassium 4.0 Chloride 107 Carbon Dioxide 22 Anion Gap 14 BUN 16 Creatinine 0.9 Est GFR ( Amer) > 60 Est GFR (Non-Af Amer) > 60 Random Glucose 95 Calcium 9.8 Magnesium 2.0 Total Bilirubin 0.6 AST 43 H D ALT 16 Alkaline Phosphatase 122 Total Protein 8.6 H Albumin 4.5 Globulin 4.1 Albumin/Globulin Ratio 1.1 Lipase 89
[2018-03-22 21:12] VITALS: BP 132/74; PULSE 74; O2SAT 98
--- NOTE | 2018-03-23 10:19 | CT ---
Date of service: 03/22/2018 PROCEDURE: CT Abdomen and Pelvis with contrast HISTORY: h/o ulcerative colitis w/ llq pain COMPARISON: None. TECHNIQUE: Contrast dose: 96 mL Omnipaque 350 Radiation dose: Total exam DLP = 972.76 mGy-cm. This CT exam was performed using one or more of the following dose reduction techniques: Automated exposure control, adjustment of the mA and/or kV according to patient size, and/or use of iterative reconstruction technique. FINDINGS: LOWER THORAX: Few pulmonary cysts noted in the lower lobes nonspecific. No acute infiltrate. LIVER: Unremarkable. No gross lesion or ductal dilatation. GALLBLADDER AND BILE DUCTS: Cholecystectomy please note that surgical clips are not visualized. Mild dilatation of the common bile duct to 8 mm diameter, consistent with prior cholecystectomy. PANCREAS: Unremarkable. No gross lesion or ductal dilatation. SPLEEN: Unremarkable. ADRENALS: Unremarkable. No mass. KIDNEYS AND URETERS: Mid right renal cortical low-density mass, 9 mm. Probable cysts but too small to characterize on the basis of computed tomography no other renal mass. No calculus or hydronephrosis.. VASCULATURE: Unremarkable. No aortic aneurysm. There is minimal atherosclerotic calcification of the abdominal aorta. BOWEL: No bowel obstruction. There is intramural fat circumferentially throughout the rectum consistent with the history of known ulcerative colitis. No evidence of acute inflammation. No other abnormal bowel loops. APPENDIX: Normal appendix. PERITONEUM: No ascites or pneumoperitoneum. Small umbilical hernia containing only mesenteric fat. LYMPH NODES: Unremarkable. No enlarged lymph nodes. BLADDER: Nondistended REPRODUCTIVE: Normal uterus BONES: No acute fracture. OTHER FINDINGS: None. IMPRESSION: No evidence of acute bowel inflammation or obstruction. Circumferential intramural fat in the rectum consistent with history of ulcerative colitis. Minor findings as above. The preliminary findings for this examination were reported by [facility] at 8:06 p.m. on 03/22/2018. There is discordance of this report with the preliminary findings. There is not felt to be evidence of merchant colitis on the basis of this examination. There is no evidence of hiatal hernia.
--- NOTE | 2018-03-23 12:19 | CARD ---
APPROVED REPORT Date of service: 03/22/2018 EKG Measurement Heart [id number] <Conclusion> Normal sinus rhythm Minimal voltage criteria for LVH, may be normal variant Borderline ECG
== END 2018-03-22 20:45 | disposition home or self-care (01) ==
LOC: ED 16:07
DX: K51.00 Ulcerative (chronic) pancolitis without complications (principal); E78.5 Hyperlipidemia, unspecified; I10 Essential (primary) hypertension; M79.7 Fibromyalgia; G62.9 Polyneuropathy, unspecified; J44.9 Chronic obstructive pulmonary disease, unspecified; F17.210 Nicotine dependence, cigarettes, uncomplicated
CPT/HCPCS: 74177; 80053; 83690; 83735; 85025; 93005; 96374; 96375; 99285; J2765; J7030; Q9967

== ENCOUNTER 2018-05-19 08:40 | Inpatient (IN) | payer MEDICARE, MEDICAID ==
[2018-05-13 16:46] VITALS: BMI 41.0
[2018-05-19] MEDS ORDERED: Propofol 10 mg/ml Inj (20 ML) ONE ×3 (09:48→13:12)
[2018-05-19] MEDS ORDERED: Morphine 2 mg/ml ISec IVP PRN (10:33)
[2018-05-19] MEDS ORDERED: Morphine 4 mg/ml ISec ONE (10:45)
[2018-05-19] MEDS ORDERED: Lactated Ringer's 1,000 ML IV SCH ×3 (10:45→18:15)
[2018-05-19] MEDS ORDERED: metroNIDAZOLE IV 500 mg/100 ml 500 MG/100 ML BAG IVPB STA (11:00)
[2018-05-19] MEDS ORDERED: metroNIDAZOLE IV 500 mg/100 ml 500 MG/100 ML BAG ONE (11:13)
[2018-05-19] MEDS ORDERED: Meropenem IV 1 gm in NS 1 GM/50 ML BAG IVPB SCH ×2 (11:15→14:00)
[2018-05-19] MEDS ORDERED: MetroNIDAZOLE 500 mg/100 ml IVPB ONE (11:15)
[2018-05-19] MEDS ORDERED: HYDROmorphone 1 mg/ml ISec IVP STA ×2 (11:17→12:07)
[2018-05-19] MEDS ORDERED: HYDROmorphone 1 mg/ml ISec IVP PRN (11:28)
--- NOTE | 2018-05-19 11:52 | CP.CCUPN ---
CCU Subjective - Physician Review Events Since Last Encounter (Free Text): 05/19/18 11:36 pt underwent colonoscopy, likey rectal perf, will transfer pt to the ICU from PACU Subjective (Free Text): 05/19/18 11:37 Pt is a 57 yo female with a PMH of HTN, HLD, UC fibromyalgia, rectal bleeding, p artial thyroidectomy, and neuropathy who was receiving a colonoscopy because of her ulcerative colitis, rectal bleeding and LLQ abdominal pain who experienced a rectal perforation during the procedure. The perforation was clipped and the pt was transfered to the ICU. CCU Objective - Vital Signs / Intake & Output Vital Signs (Last 4 hours): Vital Signs Temp Pulse Resp BP Pulse Ox 05/19/18 09:46 99 05/19/18 09:00 97.6 F 69 18 145/93 H 99 - Medications Active Medications: Active Medications Generic Name Dose Route Start Last Admin Trade Name Freq PRN Reason Stop Dose Admin Hydromorphone HCl 1 mg 05/19/18 11:28 Dilaudid IVP Q4H PRN Pain, severe (8-10) Lactated Ringer's 1,000 mls @ 75 mls/hr 05/19/18 10:45 Lactated Ringer's IV 05/19/18 12:46 .[id number] MOISÉS Metronidazole 500 mg in 100 mls @ 100 mls/hr 05/19/18 11:00 Flagyl IVPB 05/19/18 11:59 STAT STA Protocol Meropenem 1 gm in 50 mls @ 100 mls/hr 05/19/18 11:15 Merrem Iv 1 Gm Premix IVPB STAT MOISÉS Protocol - Patient Studies EKG/Cardiology Studies: Cardiology / EKG Studies 05/19/18 11:17 EKG [ELECTROCARDIOGRAM] Stat Comment: Reason For Exam: peaked t waves
--- NOTE | 2018-05-19 11:53 | CT ---
Date of service: 05/19/2018 PROCEDURE: CT Abdomen and Pelvis without intravenous contrast HISTORY: post colonscopy perforation COMPARISON: None. TECHNIQUE: Without contrast.. Contrast dose: Radiation dose: Total exam DLP = 1463.98 mGy-cm. This CT exam was performed using one or more of the following dose reduction techniques: Automated exposure control, adjustment of the mA and/or kV according to patient size, and/or use of iterative reconstruction technique. FINDINGS: LOWER THORAX: There is a large amount of intraperitoneal free air beneath the diaphragms. LIVER: Unremarkable. No gross lesion or ductal dilatation. GALLBLADDER AND BILE DUCTS: Unremarkable. PANCREAS: Unremarkable. No gross lesion or ductal dilatation. SPLEEN: Unremarkable. ADRENALS: Unremarkable. No mass. KIDNEYS AND URETERS: Unremarkable. No hydronephrosis. No solid mass. VASCULATURE: Unremarkable. No aortic aneurysm. No aortic atherosclerotic calcification or mural plaque present. BOWEL: Unremarkable. No obstruction. No gross mural thickening. Multiple clips are seen at the site of perforation which is at the junction of the rectum and sigmoid colon. There is no associated retroperitoneal air. There is a large amount of intraperitoneal free air. The study was reviewed with Dr. Rowland at 11:45 a.m. APPENDIX: Unremarkable. Normal appendix. PERITONEUM: There is a large amount of intraperitoneal free air beneath the diaphragms. LYMPH NODES: Unremarkable. No enlarged lymph nodes. BLADDER: Unremarkable. REPRODUCTIVE: Unremarkable. BONES: No acute fracture. OTHER FINDINGS: None. IMPRESSION: Multiple clips are seen at the site of perforation which is at the junction of the rectum and sigmoid colon. There is no associated retroperitoneal air. There is a large amount of intraperitoneal free air. The study was reviewed with Dr. Rowland at 11:45 a.m.
--- NOTE | 2018-05-19 11:56 | CP.PCM.CON ---
<Sp Baptiste - Last Filed: 05/19/18 13:58> History of Present Illness - History of Present Illness History of Present Illness: Pt is a 57 yo female with a PMH of HTN, HLD, UC fibromyalgia, rectal bleeding, partial thyroidectomy, and neuropathy who was receiving a colonoscopy because of her ulcerative colitis, rectal bleeding and LLQ abdominal pain who experienced a rectal perforation during the procedure. The perforation was clipped and the pt was transferred to the ICU. Past Patient History - Infectious Disease Hx of Infectious Diseases: None - Tetanus Immunizations Tetanus Immunization: Unknown - Past Medical History & Family History Past Medical History?: Yes - Past Social History Smoking Status: Light Smoker < 10 Cigarettes Daily - CARDIAC Hx Pacemaker: No - PULMONARY Hx Chronic Obstructive Pulmonary Disease (COPD): Yes - NEUROLOGICAL Hx Paralysis: No - HEENT Hx HEENT Problems: No - RENAL Hx Chronic Kidney Disease: No - ENDOCRINE/METABOLIC Hx Endocrine Disorders: No - HEMATOLOGICAL/ONCOLOGICAL Hx Blood Transfusions: No Hx Blood Transfusion Reaction: No - INTEGUMENTARY Hx Dermatological Problems: No - MUSCULOSKELETAL/RHEUMATOLOGICAL Hx Musculoskeletal Disorders: No - GASTROINTESTINAL Hx Gastrointestinal Disorders: Yes Hx Colitis: Yes - GENITOURINARY/GYNECOLOGICAL Hx Genitourinary Disorders: No - PSYCHIATRIC Hx Emotional Abuse: No Hx Physical Abuse: No Hx Substance Use: No - SURGICAL HISTORY Hx Surgeries: Yes (L FOOT SX 03/2017) - ANESTHESIA Hx Anesthesia Reactions: No Hx Malignant Hyperthermia: No Meds Allergies/Adverse Reactions: Allergies Allergy/AdvReac Type Severity Reaction Status Date / Time Sulfa (Sulfonamide Allergy Severe RASH Verified 05/19/18 12:18 Antibiotics) - Medications Medications: Current Medications Hydromorphone HCl (Dilaudid) 1 mg IVP Q4H PRN PRN Reason: Pain, severe (8-10) Lactated Ringer's (Lactated Ringer's) 1,000 mls @ 75 mls/hr IV .[id number] [facility] Stop: 05/19/18 12:46 Metronidazole (Flagyl) 500 mg in 100 mls @ 100 mls/hr IVPB STAT ST[facility]; Protocol Stop: 05/19/18 11:59 Meropenem (Merrem Iv 1 Gm Premix) 1 gm in 50 mls @ 100 mls/hr IVPB STAT [facility]; Protocol Physical Exam - Head Exam Head Exam: ATRAUMATIC, NORMOCEPHALIC - Eye Exam Eye Exam: EOMI, Normal appearance - ENT Exam ENT Exam: Mucous Membranes Moist - Neck Exam Neck exam: Positive for: Full Rom - Respiratory Exam Respiratory Exam: Clear to Auscultation Bilateral, NORMAL BREATHING PATTERN. absent: Accessory Muscle Use, Respiratory Distress - Cardiovascular Exam Cardiovascular Exam: RRR, +S1, +S2. absent: Diastolic murmur, Systolic Murmur - GI/Abdominal Exam GI & Abdominal Exam: Normal Bowel Sounds, Soft, Tenderness. absent: Diminished Bowel Sounds, Distended, Firm, Guarding - Rectal Exam Rectal Exam: Deferred Additional comments: deferred due to rectal perf - Extremities Exam Extremities exam: Positive for: full ROM, pedal edema, pedal pulses present. Negative for: calf tenderness - Neurological Exam Neurological exam: Alert, Oriented x3 - Skin Skin Exam: Intact, Normal Color, Warm Results - Vital Signs Recent Vital Signs: Last Vital Signs Temp 97.6 F 05/19/18 09:00 Pulse 69 05/19/18 09:00 Resp 18 05/19/18 09:00 BP 145/93 H 05/19/18 09:00 Pulse Ox 99 05/19/18 09:46 Assessment & Plan - Assessment and Plan (Free Text) Assessment: Pt is a 57 yo female with a PMH of HTN, HLD, UC fibromyalgia, rectal bleeding, partial thyroidectomy, and neuropathy who was receiving a colonoscopy experienced a rectal perforation during the procedure. Plan: Neuro - fibromyalgia, neuropathy, anxiety - continue to monitor neuro status - xanax 0.5 TID Cardio - HTN, HLD - RRR - lisinopril, metoprolol Pulm - COPD GI - UC, rectal bleeding - rectal perforation - mesalamine - Pt going to OR today 05/19/18, will then be transferred to the ICU - NPO - Surgery consulted, Dr Ontiveros Nephro/ - monitor electrolytes - monitor BUN/Cr Heme/ Onc - follow up CBC - INR follow up ID - follow up CBC - metronidazole, merropenem - ID consulted, Dr Hooker Endo - partial thyroidectomy Pt seen, examined, assessment and plan discussed with Dr Jaclyn Baptiste PGY1 - Date & Time Date: 05/19/18 Time: 11:56 <Jaclyn Suarez - Last Filed: 05/20/18 11:37> Meds - Medications Medications: Current Medications Acetaminophen (Tylenol 650 Mg Supp) 650 mg RC Q6H PRN PRN Reason: Fever >100.4 F Albuterol/Ipratropium (Duoneb 3 Mg/0.5 Mg (3 Ml) Ud) 3 ml IH [id number] [facility] Alprazolam (Xanax) 0.5 mg PO TID PRN; Protocol PRN Reason: Anxiety Arformoterol Tartrate (Brovana) 15 mcg IH [id number] [facility] Budesonide (Pulmicort Respules) 0.5 mg IH [id number] [facility] Heparin Sodium (Porcine) (Heparin) 5,000 units SC Q8 [facility]; Protocol Hydromorphone HCl (Dilaudid) 1 mg IVP Q4H PRN PRN Reason: Pain, severe (8-10) Last Admin: 05/20/18 08:59 Dose: 1 mg Piperacillin Sod/Tazobactam Sod (Zosyn 3.375 In Ns 100ml) 100 mls @ 25 mls/hr IVPB Q8 [facility]; Protocol Stop: 05/26/18 22:01 Last Admin: 05/20/18 06:28 Dose: 25 mls/hr Hydromorphone HCl (Dilaudid 0.2 Mg/Ml Field Representative) 30 mls @ 0 mls/hr IV .Q0M PRN; Pr otocol PRN 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: 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 Last Admin: 05/19/18 21:07 Dose: 5 mls/hr Sodium Chloride (Sodium Chloride 0.9%) 1,000 mls @ 80 mls/hr IV .[id number] [facility] Last Admin: 05/20/18 08:36 Dose: 80 mls/hr Lisinopril (Zestril) 40 mg PO DAILY [facility] Mesalamine (Asacol Hd 800mg) 800 mg PO TID [facility] Last Admin: 05/20/18 09:00 Dose: Not Given Metoclopramide HCl (Reglan) 10 mg IV ONCE PRN PRN Reason: Nausea/Vomiting Metoprolol Tartrate (Lopressor) 50 mg PO BID [facility] Last Admin: 05/20/18 09:01 Dose: Not Given Ondansetron HCl (Zofran Inj) 4 mg IVP Q6H PRN PRN Reason: Nausea/Vomiting Pregabalin (Lyrica) 150 mg PO TID [facility] Last Admin: 05/20/18 09:03 Dose: Not Given Results - Vital Signs Recent Vital Signs: Last Vital Signs Temp 98 F 05/19/18 19:30 Pulse 88 05/20/18 04:00 Resp 14 05/20/18 04:00 BP 105/72 05/20/18 03:51 Pulse Ox 99 05/20/18 04:00 - Labs Result Diagrams: 05/20/18 05:30 05/20/18 05:30 Labs: Laboratory Results - last 24 hr 05/19/18 05/19/18 05/19/18 12:30 12:30 12:30 WBC 6.0 D RBC 5.25 Hgb 14.6 Hct 45.3 MCV 86.3 D MCH 27.8 MCHC 32.2 RDW 14.8 H Plt Count 233 MPV 9.6 Neut % (Auto) 78.8 H Lymph % (Auto) 17.5 L [place] % (Auto) 3.2 Eos % (Auto) 0.5 L Baso % (Auto) 0.0 Lymph # (Auto) 1.1 L [place] # (Auto) 0.2 Eos # (Auto) 0.0 Baso # (Auto) 0.00 Absolute Neuts (auto) 4.73 PT 11.0 INR 0.97 Sodium 141 Potassium 3.4 L Chloride 107 Carbon Dioxide 25 Anion Gap 13 BUN 16 Creatinine 0.9 Est GFR ( Amer) > 60 Est GFR (Non-Af Amer) > 60 Random Glucose 106 Calcium 9.0 Phosphorus 4.4 Magnesium 2.4 H Total Bilirubin 0.4 AST 17 ALT 23 Alkaline Phosphatase 84 Total Protein 7.2 Albumin 3.9 Globulin 3.3 Albumin/Globulin Ratio 1.2 Blood Type Blood Type Confirm Antibody Screen Crossmatch BBK History Checked 05/19/18 05/19/18 05/19/18 12:30 13:00 21:20 WBC RBC Hgb Hct MCV MCH MCHC RDW Plt Count MPV Neut % (Auto) Lymph % (Auto) Edmons[place] % (Auto) Eos % (Auto) Baso % (Auto) Lymph # (Auto) Edmonson # (Auto) Eos # (Auto) Baso # (Auto) Absolute Neuts (auto) PT INR Sodium Potassium 3.0 L Chloride Carbon Dioxide Anion Gap BUN Creatinine Est GFR ( Amer) Est GFR (Non-Af Amer) Random Glucose Calcium Phosphorus Magnesium 1.7 Total Bilirubin AST ALT Alkaline Phosphatase Total Protein Albumin Globulin Albumin/Globulin Ratio Blood Type A POSITIVE Blood Type Confirm A POSITIVE Antibody Screen Negative Crossmatch See Detail BBK History Checked No verified bt 05/20/18 05/20/18 05:30 05:30 WBC 7.4 D RBC 4.31 Hgb 11.8 L D Hct 37.2 MCV 86.3 MCH 27.4 MCHC 31.7 RDW 15.3 H Plt Count 239 MPV 10.1 Neut % (Auto) 82.4 H Lymph % (Auto) 15.1 L [place] % (Auto) 1.9 Eos % (Auto) 0.5 L Baso % (Auto) 0.1 Lymph # (Auto) 1.1 L [place] # (Auto) 0.1 Eos # (Auto) 0.0 Baso # (Auto) 0.01 Absolute Neuts (auto) 6.11 PT INR Sodium 142 Potassium 4.0 Chloride 108 H Carbon Dioxide 26 Anion Gap 12 BUN 19 Creatinine 1.4 H Est GFR ( Amer) 47 Est GFR (Non-Af Amer) 38 Random Glucose 106 Calcium 8.1 L Phosphorus 6.5 H Magnesium 1.8 Total Bilirubin 0.6 AST 21 ALT 21 Alkaline Phosphatase 55 Total Protein 5.3 L Albumin 2.8 L Globulin 2.5 Albumin/Globulin Ratio 1.1 Blood Type Blood Type Confirm Antibody Screen Crossmatch BBK History Checked Addendum Addendum: 05/20/18 11:34 MICU Attending addendum PAtinet seen and examined on 05/19 with lynette while patient was in PACU Agree with resident note above with the following add/exceptions: 57 F PMH of HTN, HLD, UC fibromyalgia, partial thyroidectomy, and neuropathy undergoing ambulatory colonoscopy complicated by rectal perforation and free air in abdomen. Patient will go to OR after PACU for ex-lap regarding free in air in abdomen. Will follow patient after OR For now keep NPO Dilaudid for pain control Hemodynamically stable will order standard labs. cmp, cbc epiric abx merrem and vanc PPI for GI ppx DVT ppx as per surg team Rest of care above Jaclyn Suarez MD MICU attending
[2018-05-19] MEDS ORDERED: HYDROmorphone 1 mg/ml ISec ONE (12:10)
--- NOTE | 2018-05-19 12:24 | CP.PCM.CON ---
History of Present Illness - History of Present Illness History of Present Illness: GENERAL SURGERY CONSULT NOTE FOR DR. CROCKER 57yo F with PMHx of HTN, HLD, Ulcerative colitis on mesalamine, COPD, fibromyalgia, and neuropathy presented for colonoscopy today for her UC. She sustained a rectosigmoid perforation which was clipped multiple times, however pt was sent to CT and found to have significant amount of free air. Pt complaining of abdominal pain. No nausea or vomiting. Last colonoscopy was in July 2017. Pathology showed a hyperplastic polyp but no dysplasia. PMHx: HTN, HLD, COPD, Ulcerative colitis diagnosed in 1997, fibromyalgia, rectal bleeding, and neuropathy Surgeries: open cholecystectomy as a 12yo, sinus, parathyroid adenoma excision, left foot surgery Allergies: sulfa Medications: prednisone 35mg daily for 2-4 weeks, symbicort, mesalamine, Social history: tobacco abuse, quit 1 month ago, denies etoh or illicit drug use Review of Systems - Review of Systems All systems: reviewed and no additional remarkable complaints except (as per HPI) Past Patient History - Infectious Disease Hx of Infectious Diseases: None - Tetanus Immunizations Tetanus Immunization: Unknown - Past Medical History & Family History Past Medical History?: Yes - Past Social History Smoking Status: Light Smoker < 10 Cigarettes Daily - CARDIAC Hx Pacemaker: No - PULMONARY Hx Chronic Obstructive Pulmonary Disease (COPD): Yes - NEUROLOGICAL Hx Paralysis: No - HEENT Hx HEENT Problems: No - RENAL Hx Chronic Kidney Disease: No - ENDOCRINE/METABOLIC Hx Endocrine Disorders: No - HEMATOLOGICAL/ONCOLOGICAL Hx Blood Transfusions: No Hx Blood Transfusion Reaction: No - INTEGUMENTARY Hx Dermatological Problems: No - MUSCULOSKELETAL/RHEUMATOLOGICAL Hx Musculoskeletal Disorders: No - GASTROINTESTINAL Hx Gastrointestinal Disorders: Yes Hx Colitis: Yes - GENITOURINARY/GYNECOLOGICAL Hx Genitourinary Disorders: No - PSYCHIATRIC Hx Emotional Abuse: No Hx Physical Abuse: No Hx Substance Use: No - SURGICAL HISTORY Hx Surgeries: Yes (L FOOT SX 03/2017) - ANESTHESIA Hx Anesthesia Reactions: No Hx Malignant Hyperthermia: No Meds Allergies/Adverse Reactions: Allergies Allergy/AdvReac Type Severity Reaction Status Date / Time Sulfa (Sulfonamide Allergy Severe RASH Verified 05/19/18 12:18 Antibiotics) - Medications Medications: Current Medications Alprazolam (Xanax) 0.5 mg PO TID PRN; Protocol PRN Reason: Anxiety Hydromorphone HCl (Dilaudid) 1 mg IVP Q4H PRN PRN Reason: Pain, severe (8-10) Lactated Ringer's (Lactated Ringer's) 1,000 mls @ 75 mls/hr IV .[id number] [facility] Stop: 05/19/18 12:46 Metronidazole (Flagyl) 500 mg in 100 mls @ 100 mls/hr IVPB Q8 [facility]; Protocol Meropenem (Merrem Iv 1 Gm Premix) 1 gm in 50 mls @ 100 mls/hr IVPB Q8 [facility]; Protocol Stop: 05/19/18 22:29 Lisinopril (Zestril) 40 mg PO DAILY [facility] Mesalamine (Asacol Hd 800mg) 800 mg PO TID [facility] Metoprolol Tartrate (Lopressor) 50 mg PO BID [facility] Pregabalin (Lyrica) 150 mg PO TID [facility] Physical Exam - Constitutional Appears: Non-toxic, No Acute Distress - Head Exam Head Exam: ATRAUMATIC, NORMAL INSPECTION - Eye Exam Eye Exam: EOMI, Normal appearance - Respiratory Exam Respiratory Exam: NORMAL BREATHING PATTERN. absent: Respiratory Distress - Cardiovascular Exam Cardiovascular Exam: +S1, +S2 - GI/Abdominal Exam GI & Abdominal Exam: Soft, Tenderness (diffuse). absent: Distended, Firm, Guarding, Rigid Additional comments: well healed open cholecystectomy scar - Neurological Exam Neurological exam: Alert, CN II-XII Intact, Oriented x3 - Psychiatric Exam Psychiatric exam: Normal Affect, Normal Mood - Skin Skin Exam: Dry, Normal Color, Warm Results - Vital Signs Recent Vital Signs: Last Vital Signs Temp 97.6 F 05/19/18 12:08 Pulse 74 05/19/18 12:08 Resp 17 05/19/18 12:08 BP 139/88 05/19/18 12:08 Pulse Ox 98 05/19/18 12:08 - Labs Result Diagrams: 05/19/18 12:30 05/19/18 12:30 Assessment & Plan - Assessment and Plan (Free Text) Assessment: 57yo F with PMHx of HTN, HLD, Ulcerative colitis on mesalamine, COPD, neuropathy who has a sigmoid perforation - OR today for Ex lap, colon resection - IV Abx - NPO, IV fluids - Discussed plan with Dr. Weston Gonzales PGY-4
[2018-05-19] MEDS ORDERED: Bupivacaine Liposomal Inj 20 ml ONE (12:52)
[2018-05-19] MEDS ORDERED: Bupivacaine 0.5% 50 ML IJ ONE (12:52)
[2018-05-19 12:56] LABS: EOS % 0.5 % (1.5-5.0); HEMOGLOBIN 14.6 g/dL (12.0-16.0); LYMPH # 1.1 (1.2-3.4); LYMPH % 17.5 % (22.0-35.0); MEAN CELL VOLUME 86.3 fl (80.0-105.0); MEAN CORPUSCULAR HEMOGLOBIN 27.8 pg (25.0-35.0); MEAN CORPUSCULAR HGB CONC 32.2 g/dl (31.0-37.0); MEAN PLATELET VOLUME 9.6 fl (7.0-11.0); MONO # 0.2 (0.1-0.6); MONO % 3.2 % (1.0-6.0); RBC 5.25 10^6/uL (3.5-6.1); RED CELL DISTRIBUTION WIDTH 14.8 % (11.5-14.5)
[2018-05-19 13:03] LABS: INR 0.97
[2018-05-19 13:05] LABS: ALB/GLOB RATIO 1.2 (1.1-1.8); ALBUMIN 3.9 g/dL (3.0-4.8); ALT/SGPT 23 U/L (7-56); AST/SGOT 17 U/L (14-36); BLOOD UREA NITROGEN 16 mg/dL (7-21); GFR NON-AFRICAN AMERICAN > 60
[2018-05-19] MEDS ORDERED: Midazolam 2 MG/2 ML VIAL ONE (13:12)
[2018-05-19] MEDS ORDERED: Rocuronium 10 mg/ml (5 ml) ONE (13:19)
[2018-05-19] MEDS ORDERED: Albuterol HFA 90 mcg/actuation (8 g) ONE (13:21)
[2018-05-19] MEDS ORDERED: metroNIDAZOLE IV 500 mg/100 ml 500 MG/100 ML BAG IVPB SCH (14:00)
[2018-05-19] MEDS ORDERED: 0.125% Bupivacaine in 0.9% NS 750mL On Q Dual pump IJ SCH (14:15)
--- NOTE | 2018-05-19 15:28 | CON ---
DATE OF CONSULTATION: 05/19/2018 GASTROENTEROLOGY CONSULTATION SUBJECTIVE: Lillie Mcfadden is a 57-year-old female, a longstanding history of ulcerative colitis with questionable compliance to medications, who developed rectal bleeding several weeks ago. She had a colonoscopy this morning for evaluation of her ulcerative colitis. She was found to have a markedly tortuous sigmoid colon making for difficult advancement of the scope to the cecum. She was noted to have mildly active colitis in the rectum and sigmoid colon. On withdrawal of the scope from the cecum, a perforation was noted in the mid rectum at approximately 8 cm from the anal verge. Eleven hemoclips were placed across the perforation in an attempt to seal the perforation. The patient complained of severe abdominal pain upon awakening from the procedure. She was started immediately on IV meropenem 1 g as well as Flagyl 500 mg IV piggyback. She was given morphine for pain. She underwent a CT scan of the abdomen and pelvis, which revealed a large amount of intraperitoneal free air. PAST MEDICAL HISTORY: Notable for ulcerative colitis, COPD, fibromyalgia. PAST SURGICAL HISTORY: Notable for partial thyroidectomy, cholecystectomy SOCIAL HISTORY: She smokes up to half pack of cigarettes per day. She denies alcohol use. FAMILY HISTORY: Noncontributory. REVIEW OF SYSTEMS: Fourteen-point review of systems is notable for abdominal pain. PHYSICAL EXAMINATION: GENERAL: Obese female, lying in bed, in mild distress from abdominal pain. VITAL SIGNS: Reveal temperature of 97.6, blood pressure of 139/88, heart rate of 74. HEENT: Revealed sclerae to be white. Conjunctivae pink. NECK: Supple. CHEST: Reveals distant breath sounds. HEART: Exam reveals regular rate and rhythm. ABDOMEN: Soft. Moderate diffuse tenderness. There is some voluntary guarding. EXTREMITIES: Show no edema. LABORATORY DATA: Revealed no new data available. IMPRESSION: A 57-year-old female with colonic perforation after undergoing a colonoscopy for ulcerative colitis. The patient was found to have mildly active colitis in the rectum and sigmoid colon. She was also noted to have a markedly tortuous colon making for difficult intubation to the right side. RECOMMENDATIONS: 1. We will have surgeon see the patient. I have actually spoken with the surgeon, Dr. Ontiveros, who will take the patient to the operating room within the next couple of hours 2. IV antibiotics. Derke Rowland MD [facility] # [phone] JOSEL[facility]
[2018-05-19] MEDS ORDERED: ePHEDrine 50 mg/ml Inj ONE ×2 (15:57→18:12)
[2018-05-19] MEDS ORDERED: Glycopyrrolate 0.2 mg/ml (2ml vial) ONE (16:24)
[2018-05-19] MEDS ORDERED: Neostigmine Methylsulfate 3mg/3ml Syringe IV ONE (17:24)
[2018-05-19] MEDS ORDERED: HYDROmorphone 0.5 mg/0.5 ml ISec ONE ×2 (18:26→19:31)
--- NOTE | 2018-05-19 18:39 | PCM.SURG1 ---
Surgeon's Initial Post Op Note - Surgeon's Notes Surgeon: Dr. Ontiveros Manager School: Dr. Gonzales, Dr. Ruth, Dr. Trujillo Type of Anesthesia: General Endo, Local Anesthesia Administered By: Dr. Brumfield Pre-Operative Diagnosis: Colonic perforation Operative Findings: see operative dictation Post-Operative Diagnosis: sigmoid perforation Operation Performed: exploratory laparotomy, sigmoidectomy, end colostomy Specimen/Specimens Removed: sigmoid colon Estimated Blood Loss: EBL {In ML}: 100 Blood Products Given: N/A Drains Used: Arnaud Post-Op Condition: Fair Date of Surgery/Procedure: 05/19/18 Time of Surgery/Procedure: 18:38
--- NOTE | 2018-05-19 18:39 | RAD ---
Date of service: 05/19/2018 HISTORY: sob COMPARISON: 01/21/2016. FINDINGS: LUNGS: The lungs are well inflated. There is confluent airspace disease in the right lower lobe. The left lung is clear. PLEURA: Small right pleural effusion. No left pleural effusion or pneumothorax. CARDIOVASCULAR: The heart is normal in size. No aortic atherosclerotic calcifications present. OSSEOUS STRUCTURES: Within normal limits for the patient's age. VISUALIZED UPPER ABDOMEN: Normal. OTHER FINDINGS: None. IMPRESSION: Suspect right lower lobe pneumonia and small right pleural effusion. Follow-up after medical management is recommended to ensure complete resolution. The final report is tagged to the PA review folder.
[2018-05-19] MEDS ORDERED: HYDROmorphone 0.2 mg/ml (30ml) 30 ML IV PRN ×2 (18:54→20:46)
[2018-05-19] MEDS: HYDROmorphone 0.5 mg/0.5 ml ISec IVP PRN ×2 (19:30→20:31)
[2018-05-19] MEDS: Piperacillin/Tazobact 3.375 gm 100 ML IVPB SCH (21:11)
[2018-05-19] MEDS: Lactated Ringer's 1,000 ML IV SCH (21:13)
[2018-05-19] MEDS ORDERED: Metoprolol 1 mg/ml Inj IVP ONE (21:27)
--- NOTE | 2018-05-19 22:22 | CARD ---
APPROVED REPORT Date of service: 05/19/2018 EKG Measurement Heart [id number] <Conclusion> Normal sinus rhythm Moderate voltage criteria for LVH, may be normal variant Borderline ECG
[2018-05-19] MEDS ORDERED: Pneumococcal 23-Valent Vaccine IM ONE (22:35)
[2018-05-19] MEDS ORDERED: Influenza Vaccine 60 mcg/0.5 mL SYR (4YR UP) IM ONE (22:35)
[2018-05-20] MEDS: HYDROmorphone 1 mg/ml ISec IVP PRN ×3 (00:13→08:59)
[2018-05-20] MEDS: Lactated Ringer's 1,000 ML IV SCH (03:00)
[2018-05-20] MEDS ORDERED: Albuterol-Ipratrop 3 mg / 0.5 (3 ml) UD IH STA (04:50)
[2018-05-20] MEDS: Piperacillin/Tazobact 3.375 gm 100 ML IVPB SCH ×3 (06:28→21:03)
[2018-05-20 07:00] LABS: BASO # 0.01 K/mm3 (0.0-2.0); BASO % 0.1 % (0.0-3.0); EOS % 0.5 % (1.5-5.0); HEMOGLOBIN 11.8 g/dL (12.0-16.0); LYMPH # 1.1 (1.2-3.4); LYMPH % 15.1 % (22.0-35.0); MEAN CELL VOLUME 86.3 fl (80.0-105.0); MEAN CORPUSCULAR HEMOGLOBIN 27.4 pg (25.0-35.0); MEAN CORPUSCULAR HGB CONC 31.7 g/dl (31.0-37.0); MEAN PLATELET VOLUME 10.1 fl (7.0-11.0); MONO # 0.1 (0.1-0.6); MONO % 1.9 % (1.0-6.0); RBC 4.31 10^6/uL (3.5-6.1); RED CELL DISTRIBUTION WIDTH 15.3 % (11.5-14.5); WHITE BLOOD COUNT 7.4 10^3/uL (4.5-11.0)
[2018-05-20 07:07] LABS: ALB/GLOB RATIO 1.1 (1.1-1.8); ALBUMIN 2.8 g/dL (3.0-4.8); CALCIUM 8.1 mg/dL (8.4-10.5)
[2018-05-20] MEDS ORDERED: Lactated Ringer's 1,000 ML IV SCH (07:30)
--- NOTE | 2018-05-20 07:55 | CP.CCUPN ---
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 Subjective (Free Text): 05/20/18 10:27 Pt seen and examined, reports abdominal pain CCU Objective - Vital Signs / Intake & Output Vital Signs (Last 4 hours): Vital Signs Pulse Resp BP Pulse Ox 05/20/18 04:00 88 14 99 05/20/18 03:51 79 15 105/72 97 05/20/18 03:50 82 12 99 Intake and Output (Last 8hrs): Intake & Output 05/19/18 05/20/18 05/20/18 22:59 06:59 14:59 Intake Total 1200 Output Total 860 Balance 340 Weight 210 lb Intake: IV 1200 Right Hand 0 Right Internal Jugular 1200 Oral 0 Output: Gastric Amount 20 Right Nares 20 Drainage 90 Right Abdomen 90 Urine 750 Urethral ([place]) 750 Stool 0 Other: Voiding Method Indwelling Catheter - Physical Exam Physical Exam Limitations: Negative for: Altered Mental Status Head: Positive for: Atraumatic, Normocephalic Pupils: Positive for: PERRL Extroacular Muscles: Positive for: EOMI Mouth: Positive for: Moist Mucous Membranes Neck: Positive for: Normal Range of Motion Respiratory/Chest: Positive for: Clear to Auscultation, Good Air Exchange. Negative for: Respiratory Distress Cardiovascular: Positive for: Regular Rate and Rhythm, Normal S1, S2. Negative for: Murmurs Abdomen: Positive for: Tenderness, Normal Bowel Sounds, Other (colostomy in place, bandages clean dry and in place). Negative for: Distention Upper Extremity: Positive for: Normal Inspection. Negative for: Cyanosis, Edema Lower Extremity: Positive for: Normal Inspection. Negative for: Edema Neurological: Positive for: GCS=15, CN II-XII Intact, Speech Normal Skin: Positive for: Warm, Dry, Rashes Psychiatric: Positive for: Alert, Oriented x 3 - Medications Active Medications: Active Medications Generic Name Dose Route Start Last Admin Trade Name Freq PRN Reason Stop Dose Admin Acetaminophen 650 mg 05/19/18 18:30 Tylenol 650 Mg Supp RC Q6H PRN Fever >100.4 F Alprazolam 0.5 mg 05/19/18 12:09 Xanax PO TID PRN Anxiety Protocol Heparin Sodium (Porcine) 5,000 units 05/20/18 14:00 Heparin SC Q8 MOISÉS Protocol Hydromorphone HCl 1 mg 05/19/18 18:30 05/20/18 04:37 Dilaudid IVP 1 mg Q4H PRN Administration Pain, severe (8-10) Piperacillin Sod/Tazobactam Sod 100 mls @ 25 mls/hr 05/19/18 22:00 05/20/18 06:28 Zosyn 3.375 In Ns 100ml IVPB 05/26/18 22:01 25 mls/hr Q8 MOISÉS Administration Protocol Lactated Ringer's 1,000 mls @ 135 mls/hr 05/19/18 18:45 05/20/18 03:00 Lactated Ringer's IV 135 mls/hr .[id number] MOISÉS Administration Hydromorphone HCl 30 mls @ 0 mls/hr 05/19/18 20:46 05/19/18 21:07 Dilaudid 0.2 Mg/Ml Branding Machine Operator IV 5 mls/hr .Q0M PRN Administration PASTRY FINISHER PER MD ORDER Protocol Lactated Ringer's 1,000 mls @ 999 mls/hr 05/20/18 07:30 Lactated Ringer's IV 05/20/18 08:30 .Q1H1M [facility] Lisinopril 40 mg 05/20/18 10:00 Zestril PO DAILY [facility] Mesalamine 800 mg 05/19/18 14:00 Asacol Hd 800mg PO TID [facility] Metoclopramide HCl 10 mg 05/19/18 18:14 Reglan IV ONCE PRN Nausea/Vomiting Metoprolol Tartrate 50 mg 05/19/18 18:00 Lopressor PO BID [facility] Ondansetron HCl 4 mg 05/19/18 18:30 Zofran Inj IVP Q6H PRN Nausea/Vomiting Pregabalin 150 mg 05/19/18 14:00 Lyrica PO TID [facility] - Patient Studies Lab Studies: Lab Studies 05/20/18 05/20/18 05/19/18 Range/Units 05:30 05:30 21:20 WBC 7.4 D (4.5-11.0) 10^3/uL RBC 4.31 (3.5-6.1) 10^6/uL Hgb 11.8 L D (12.0-16.0) g/dL Hct 37.2 (36.0-48.0) % MCV 86.3 (80.0-105.0) fl MCH 27.4 (25.0-35.0) pg MCHC 31.7 (31.0-37.0) g/dl RDW 15.3 H (11.5-14.5) % Plt Count 239 (120.0-450.0) 10^3/uL MPV 10.1 (7.0-11.0) fl Neut % (Auto) 82.4 H (50.0-68.0) % Lymph % (Auto) 15.1 L (22.0-35.0) % Sutton % (Auto) 1.9 (1.0-6.0) % Eos % (Auto) 0.5 L (1.5-5.0) % Baso % (Auto) 0.1 (0.0-3.0) % Lymph # (Auto) 1.1 L (1.2-3.4) Sutton # (Auto) 0.1 (0.1-0.6) Eos # (Auto) 0.0 (0.0-0.7) Baso # (Auto) 0.01 (0.0-2.0) K/mm3 Absolute Neuts (auto) 6.11 (1.4-6.5) PT (9.4-12.5) SECONDS INR Sodium 142 (132-148) mmol/L Potassium 4.0 3.0 L (3.6-5.0) mmol/L Chloride 108 H (98-107) mmol/L Carbon Dioxide 26 (21-33) mmol/L Anion Gap 12 (10-20) BUN 19 (7-21) mg/dL Creatinine 1.4 H (0.7-1.2) mg/dl Est GFR ( Amer) 47 Est GFR (Non-Af Amer) 38 Random Glucose 106 (70-110) mg/dL Calcium 8.1 L (8.4-10.5) mg/dL Phosphorus 6.5 H (2.5-4.5) mg/dL Magnesium 1.8 1.7 (1.7-2.2) mg/dL Total Bilirubin 0.6 (0.2-1.3) mg/dL AST 21 (14-36) U/L ALT 21 (7-56) U/L Alkaline Phosphatase 55 (38-126) U/L Total Protein 5.3 L (5.8-8.3) g/dL Albumin 2.8 L (3.0-4.8) g/dL Globulin 2.5 gm/dL Albumin/Globulin Ratio 1.1 (1.1-1.8) Blood Type Blood Type Confirm Antibody Screen Crossmatch BBK History Checked 05/19/18 05/19/18 05/19/18 Range/Units 13:00 12:30 12:30 WBC (4.5-11.0) 10^3/uL RBC (3.5-6.1) 10^6/uL Hgb (12.0-16.0) g/dL Hct (36.0-48.0) % MCV (80.0-105.0) fl MCH (25.0-35.0) pg MCHC (31.0-37.0) g/dl RDW (11.5-14.5) % Plt Count (120.0-450.0) 10^3/uL MPV (7.0-11.0) fl Neut % (Auto) (50.0-68.0) % Lymph % (Auto) (22.0-35.0) % Sutton % (Auto) (1.0-6.0) % Eos % (Auto) (1.5-5.0) % Baso % (Auto) (0.0-3.0) % Lymph # (Auto) (1.2-3.4) Sutton # (Auto) (0.1-0.6) Eos # (Auto) (0.0-0.7) Baso # (Auto) (0.0-2.0) K/mm3 Absolute Neuts (auto) (1.4-6.5) PT (9.4-12.5) SECONDS INR Sodium 141 (132-148) mmol/L Potassium 3.4 L (3.6-5.0) mmol/L Chloride 107 (98-107) mmol/L Carbon Dioxide 25 (21-33) mmol/L Anion Gap 13 (10-20) BUN 16 (7-21) mg/dL Creatinine 0.9 (0.7-1.2) mg/dl Est GFR ( Amer) > 60 Est GFR (Non-Af Amer) > 60 Random Glucose 106 (70-110) mg/dL Calcium 9.0 (8.4-10.5) mg/dL Phosphorus 4.4 (2.5-4.5) mg/dL Magnesium 2.4 H (1.7-2.2) mg/dL Total Bilirubin 0.4 (0.2-1.3) mg/dL AST 17 (14-36) U/L ALT 23 (7-56) U/L Alkaline Phosphatase 84 (38-126) U/L Total Protein 7.2 (5.8-8.3) g/dL Albumin 3.9 (3.0-4.8) g/dL Globulin 3.3 gm/dL Albumin/Globulin Ratio 1.2 (1.1-1.8) Blood Type A POSITIVE Blood Type Confirm A POSITIVE Antibody Screen Negative Crossmatch See Detail BBK History Checked No verified bt 05/19/18 05/19/18 Range/Units 12:30 12:30 WBC 6.0 D (4.5-11.0) 10^3/uL RBC 5.25 (3.5-6.1) 10^6/uL Hgb 14.6 (12.0-16.0) g/dL Hct 45.3 (36.0-48.0) % MCV 86.3 D (80.0-105.0) fl MCH 27.8 (25.0-35.0) pg MCHC 32.2 (31.0-37.0) g/dl RDW 14.8 H (11.5-14.5) % Plt Count 233 (120.0-450.0) 10^3/uL MPV 9.6 (7.0-11.0) fl Neut % (Auto) 78.8 H (50.0-68.0) % Lymph % (Auto) 17.5 L (22.0-35.0) % Sutton % (Auto) 3.2 (1.0-6.0) % Eos % (Auto) 0.5 L (1.5-5.0) % Baso % (Auto) 0.0 (0.0-3.0) % Lymph # (Auto) 1.1 L (1.2-3.4) Sutton # (Auto) 0.2 (0.1-0.6) Eos # (Auto) 0.0 (0.0-0.7) Baso # (Auto) 0.00 (0.0-2.0) K/mm3 Absolute Neuts (auto) 4.73 (1.4-6.5) PT 11.0 (9.4-12.5) SECONDS INR 0.97 Sodium (132-148) mmol/L Potassium (3.6-5.0) mmol/L Chloride (98-107) mmol/L Carbon Dioxide (21-33) mmol/L Anion Gap (10-20) BUN (7-21) mg/dL Creatinine (0.7-1.2) mg/dl Est GFR ( Amer) Est GFR (Non-Af Amer) Random Glucose (70-110) mg/dL Calcium (8.4-10.5) mg/dL Phosphorus (2.5-4.5) mg/dL Magnesium (1.7-2.2) mg/dL Total Bilirubin (0.2-1.3) mg/dL AST (14-36) U/L ALT (7-56) U/L Alkaline Phosphatase (38-126) U/L Total Protein (5.8-8.3) g/dL Albumin (3.0-4.8) g/dL Globulin gm/dL Albumin/Globulin Ratio (1.1-1.8) Blood Type Blood Type Confirm Antibody Screen Crossmatch BBK History Checked Laboratory Results - last 24 hr 05/19/18 05/19/18 05/19/18 12:30 12:30 12:30 WBC 6.0 D RBC 5.25 Hgb 14.6 Hct 45.3 MCV 86.3 D MCH 27.8 MCHC 32.2 RDW 14.8 H Plt Count 233 MPV 9.6 Neut % (Auto) 78.8 H Lymph % (Auto) 17.5 L [place] % (Auto) 3.2 Eos % (Auto) 0.5 L Baso % (Auto) 0.0 Lymph # (Auto) 1.1 L [place] # (Auto) 0.2 Eos # (Auto) 0.0 Baso # (Auto) 0.00 Absolute Neuts (auto) 4.73 PT 11.0 INR 0.97 Sodium 141 Potassium 3.4 L Chloride 107 Carbon Dioxide 25 Anion Gap 13 BUN 16 Creatinine 0.9 Est GFR ( Amer) > 60 Est GFR (Non-Af Amer) > 60 Random Glucose 106 Calcium 9.0 Phosphorus 4.4 Magnesium 2.4 H Total Bilirubin 0.4 AST 17 ALT 23 Alkaline Phosphatase 84 Total Protein 7.2 Albumin 3.9 Globulin 3.3 Albumin/Globulin Ratio 1.2 Blood Type Blood Type Confirm Antibody Screen Crossmatch BBK History Checked 05/19/18 05/19/18 05/19/18 12:30 13:00 21:20 WBC RBC Hgb Hct MCV MCH MCHC RDW Plt Count MPV Neut % (Auto) Lymph % (Auto) Sutton % (Auto) Eos % (Auto) Baso % (Auto) Lymph # (Auto) [place] # (Auto) Eos # (Auto) Baso # (Auto) Absolute Neuts (auto) PT INR Sodium Potassium 3.0 L Chloride Carbon Dioxide Anion Gap BUN Creatinine Est GFR ( Amer) Est GFR (Non-Af Amer) Random Glucose Calcium Phosphorus Magnesium 1.7 Total Bilirubin AST ALT Alkaline Phosphatase Total Protein Albumin Globulin Albumin/Globulin Ratio Blood Type A POSITIVE Blood Type Confirm A POSITIVE Antibody Screen Negative Crossmatch See Detail BBK History Checked No verified bt 05/20/18 05/20/18 05:30 05:30 WBC 7.4 D RBC 4.31 Hgb 11.8 L D Hct 37.2 MCV 86.3 MCH 27.4 MCHC 31.7 RDW 15.3 H Plt Count 239 MPV 10.1 Neut % (Auto) 82.4 H Lymph % (Auto) 15.1 L [place] % (Auto) 1.9 Eos % (Auto) 0.5 L Baso % (Auto) 0.1 Lymph # (Auto) 1.1 L [place] # (Auto) 0.1 Eos # (Auto) 0.0 Baso # (Auto) 0.01 Absolute Neuts (auto) 6.11 PT INR Sodium 142 Potassium 4.0 Chloride 108 H Carbon Dioxide 26 Anion Gap 12 BUN 19 Creatinine 1.4 H Est GFR ( Amer) 47 Est GFR (Non-Af Amer) 38 Random Glucose 106 Calcium 8.1 L Phosphorus 6.5 H Magnesium 1.8 Total Bilirubin 0.6 AST 21 ALT 21 Alkaline Phosphatase 55 Total Protein 5.3 L Albumin 2.8 L Globulin 2.5 Albumin/Globulin Ratio 1.1 Blood Type Blood Type Confirm Antibody Screen Crossmatch BBK History Checked Radiology Impressions: Radiology Impressions Abdomen/Pelvis CT 05/19/18 10:58 IMPRESSION: Multiple clips are seen at the site of perforation which is at the junction of the rectum and sigmoid colon. There is no associated retroperitoneal air. There is a large amount of intraperitoneal free air. The study was reviewed with Dr. Rowland at 11:45 a.m. Chest X-Ray 05/19/18 18:13 IMPRESSION: Suspect right lower lobe pneumonia and small right pleural effusion. Follow-up after medical management is recommended to ensure complete resolution. The final report is tagged to the PA review folder. EKG/Cardiology Studies: Cardiology / EKG Studies 05/19/18 11:17 EKG [ELECTROCARDIOGRAM] Stat Comment: Reason For Exam: peaked t waves Critical Care Progress Note - Nutrition Nutrition: Nutrition Category Date Time Status NPO Diet [DIET] Diets 05/19/18 Dinner Ordered Assessment/Plan - Assessment and Plan (Free Text) Assessment: Pt is a 57 yo female with a PMH of HTN, HLD, UC fibromyalgia, rectal bleeding, partial thyroidectomy, and neuropathy who was receiving a colonoscopy experienced a rectal perforation during the procedure. Plan: Neuro - fibromyalgia, neuropathy, anxiety - continue to monitor neuro status - xanax 0.5 TID Cardio - HTN, HLD - RRR Pulm - COPD - duonebs q6, brovana, pulmicort GI - UC, rectal bleeding, rectal perforation - mesalamine - pt underwent sigmoid resection and colostomy placement - NPO - Surgery consulted, Dr Ontiveros Nephro/ - monitor electrolytes - monitor BUN/Cr 47/1.4 - NS80 Heme/ Onc - monitor H/H - Hgb 11.8 - INR 0.97 ID - no leukocytosis - metronidazole, zosyn - ID consulted, Dr Hooker Endo - partial thyroidectomy Pt seen, examined, assessment and plan discussed with Dr Adrian Baptiste PGY1 - Date & Time Date: 05/20/18 Time: 08:00 <Spencer Campbell - Last Filed: 05/20/18 12:08> CCU Objective - Vital Signs / Intake & Output Intake and Output (Last 8hrs): Intake & Output 05/19/18 05/20/18 05/20/18 22:59 06:59 14:59 Intake Total 1200 Output Total 860 Balance 340 Weight 210 lb Intake: IV 1200 Right Hand 0 Right Internal Jugular 1200 Oral 0 Output: Gastric Amount 20 Right Nares 20 Drainage 90 Right Abdomen 90 Urine 750 Urethral ([place]) 750 Stool 0 Other: Voiding Method Indwelling Catheter - Medications Active Medications: Active Medications Generic Name Dose Route Start Last Admin Trade Name Freq PRN Reason Stop Dose Admin Acetaminophen 650 mg 05/19/18 18:30 Tylenol 650 Mg Supp RC Q6H PRN Fever >100.4 F Albuterol/Ipratropium 3 ml 05/20/18 10:00 Duoneb 3 Mg/0.5 Mg (3 Ml) Ud IH [id number] MOISÉS Alprazolam 0.5 mg 05/19/18 12:09 Xanax PO TID PRN Anxiety Protocol Arformoterol Tartrate 15 mcg 05/20/18 20:00 Brovana IH [id number] MOISÉS Budesonide 0.5 mg 05/20/18 20:00 Pulmicort Respules IH [id number] MOISÉS Heparin Sodium (Porcine) 5,000 units 05/20/18 14:00 Heparin SC Q8 MOISÉS Protocol Hydromorphone HCl 0.5 mg 05/20/18 12:02 Dilaudid IVP Q3H PRN Pain, severe (8-10) Piperacillin Sod/Tazobactam Sod 100 mls @ 25 mls/hr 05/19/18 22:00 05/20/18 06:28 Zosyn 3.375 In Ns 100ml IVPB 05/21/18 22:01 25 mls/hr Q8 MOISÉS Administration Protocol Hydromorphone HCl 30 mls @ 0 mls/hr 05/19/18 20:46 05/19/18 21:07 Dilaudid 0.2 Mg/Ml Branding Machine Operator IV 5 mls/hr .Q0M PRN Administration PASTRY FINISHER PER MD ORDER Protocol Sodium Chloride 1,000 mls @ 80 mls/hr 05/20/18 08:00 05/20/18 08:36 Sodium Chloride 0.9% IV 80 mls/hr .[id number] MOISÉS Administration Lisinopril 40 mg 05/20/18 10:00 Zestril PO DAILY [facility] Mesalamine 800 mg 05/19/18 14:00 05/20/18 09:00 Asacol Hd 800mg PO Not Given TID [facility] Metoclopramide HCl 10 mg 05/19/18 18:14 Reglan IV ONCE PRN Nausea/Vomiting Metoprolol Tartrate 50 mg 05/19/18 18:00 05/20/18 09:01 Lopressor PO Not Given BID [facility] Ondansetron HCl 4 mg 05/19/18 18:30 Zofran Inj IVP Q6H PRN Nausea/Vomiting Pregabalin 150 mg 05/19/18 14:00 05/20/18 09:03 Lyrica PO Not Given TID MOISÉS - Patient Studies Lab Studies: Lab Studies 05/20/18 05/20/18 05/19/18 Range/Units 05:30 05:30 21:20 WBC 7.4 D (4.5-11.0) 10^3/uL RBC 4.31 (3.5-6.1) 10^6/uL Hgb 11.8 L D (12.0-16.0) g/dL Hct 37.2 (36.0-48.0) % MCV 86.3 (80.0-105.0) fl MCH 27.4 (25.0-35.0) pg MCHC 31.7 (31.0-37.0) g/dl RDW 15.3 H (11.5-14.5) % Plt Count 239 (120.0-450.0) 10^3/uL MPV 10.1 (7.0-11.0) fl Neut % (Auto) 82.4 H (50.0-68.0) % Lymph % (Auto) 15.1 L (22.0-35.0) % Sutton % (Auto) 1.9 (1.0-6.0) % Eos % (Auto) 0.5 L (1.5-5.0) % Baso % (Auto) 0.1 (0.0-3.0) % Lymph # (Auto) 1.1 L (1.2-3.4) Sutton # (Auto) 0.1 (0.1-0.6) Eos # (Auto) 0.0 (0.0-0.7) Baso # (Auto) 0.01 (0.0-2.0) K/mm3 Absolute Neuts (auto) 6.11 (1.4-6.5) PT (9.4-12.5) SECONDS INR Sodium 142 (132-148) mmol/L Potassium 4.0 3.0 L (3.6-5.0) mmol/L Chloride 108 H (98-107) mmol/L Carbon Dioxide 26 (21-33) mmol/L Anion Gap 12 (10-20) BUN 19 (7-21) mg/dL Creatinine 1.4 H (0.7-1.2) mg/dl Est GFR ( Amer) 47 Est GFR (Non-Af Amer) 38 Random Glucose 106 (70-110) mg/dL Calcium 8.1 L (8.4-10.5) mg/dL Phosphorus 6.5 H (2.5-4.5) mg/dL Magnesium 1.8 1.7 (1.7-2.2) mg/dL Total Bilirubin 0.6 (0.2-1.3) mg/dL AST 21 (14-36) U/L ALT 21 (7-56) U/L Alkaline Phosphatase 55 (38-126) U/L Total Protein 5.3 L (5.8-8.3) g/dL Albumin 2.8 L (3.0-4.8) g/dL Globulin 2.5 gm/dL Albumin/Globulin Ratio 1.1 (1.1-1.8) Blood Type Blood Type Confirm Antibody Screen Crossmatch BBK History Checked 05/19/18 05/19/18 05/19/18 Range/Units 13:00 12:30 12:30 WBC (4.5-11.0) 10^3/uL RBC (3.5-6.1) 10^6/uL Hgb (12.0-16.0) g/dL Hct (36.0-48.0) % MCV (80.0-105.0) fl MCH (25.0-35.0) pg MCHC (31.0-37.0) g/dl RDW (11.5-14.5) % Plt Count (120.0-450.0) 10^3/uL MPV (7.0-11.0) fl Neut % (Auto) (50.0-68.0) % Lymph % (Auto) (22.0-35.0) % Sutton % (Auto) (1.0-6.0) % Eos % (Auto) (1.5-5.0) % Baso % (Auto) (0.0-3.0) % Lymph # (Auto) (1.2-3.4) Sutton # (Auto) (0.1-0.6) Eos # (Auto) (0.0-0.7) Baso # (Auto) (0.0-2.0) K/mm3 Absolute Neuts (auto) (1.4-6.5) PT (9.4-12.5) SECONDS INR Sodium 141 (132-148) mmol/L Potassium 3.4 L (3.6-5.0) mmol/L Chloride 107 (98-107) mmol/L Carbon Dioxide 25 (21-33) mmol/L Anion Gap 13 (10-20) BUN 16 (7-21) mg/dL Creatinine 0.9 (0.7-1.2) mg/dl Est GFR ( Amer) > 60 Est GFR (Non-Af Amer) > 60 Random Glucose 106 (70-110) mg/dL Calcium 9.0 (8.4-10.5) mg/dL Phosphorus 4.4 (2.5-4.5) mg/dL Magnesium 2.4 H (1.7-2.2) mg/dL Total Bilirubin 0.4 (0.2-1.3) mg/dL AST 17 (14-36) U/L ALT 23 (7-56) U/L Alkaline Phosphatase 84 (38-126) U/L Total Protein 7.2 (5.8-8.3) g/dL Albumin 3.9 (3.0-4.8) g/dL Globulin 3.3 gm/dL Albumin/Globulin Ratio 1.2 (1.1-1.8) Blood Type A POSITIVE Blood Type Confirm A POSITIVE Antibody Screen Negative Crossmatch See Detail BBK History Checked No verified bt 05/19/18 05/19/18 Range/Units 12:30 12:30 WBC 6.0 D (4.5-11.0) 10^3/uL RBC 5.25 (3.5-6.1) 10^6/uL Hgb 14.6 (12.0-16.0) g/dL Hct 45.3 (36.0-48.0) % MCV 86.3 D (80.0-105.0) fl MCH 27.8 (25.0-35.0) pg MCHC 32.2 (31.0-37.0) g/dl RDW 14.8 H (11.5-14.5) % Plt Count 233 (120.0-450.0) 10^3/uL MPV 9.6 (7.0-11.0) fl Neut % (Auto) 78.8 H (50.0-68.0) % Lymph % (Auto) 17.5 L (22.0-35.0) % Sutton % (Auto) 3.2 (1.0-6.0) % Eos % (Auto) 0.5 L (1.5-5.0) % Baso % (Auto) 0.0 (0.0-3.0) % Lymph # (Auto) 1.1 L (1.2-3.4) Sutton # (Auto) 0.2 (0.1-0.6) Eos # (Auto) 0.0 (0.0-0.7) Baso # (Auto) 0.00 (0.0-2.0) K/mm3 Absolute Neuts (auto) 4.73 (1.4-6.5) PT 11.0 (9.4-12.5) SECONDS INR 0.97 Sodium (132-148) mmol/L Potassium (3.6-5.0) mmol/L Chloride (98-107) mmol/L Carbon Dioxide (21-33) mmol/L Anion Gap (10-20) BUN (7-21) mg/dL Creatinine (0.7-1.2) mg/dl Est GFR ( Amer) Est GFR (Non-Af Amer) Random Glucose (70-110) mg/dL Calcium (8.4-10.5) mg/dL Phosphorus (2.5-4.5) mg/dL Magnesium (1.7-2.2) mg/dL Total Bilirubin (0.2-1.3) mg/dL AST (14-36) U/L ALT (7-56) U/L Alkaline Phosphatase (38-126) U/L Total Protein (5.8-8.3) g/dL Albumin (3.0-4.8) g/dL Globulin gm/dL Albumin/Globulin Ratio (1.1-1.8) Blood Type Blood Type Confirm Antibody Screen Crossmatch BBK History Checked Laboratory Results - last 24 hr 05/19/18 05/19/18 05/19/18 12:30 12:30 12:30 WBC 6.0 D RBC 5.25 Hgb 14.6 Hct 45.3 MCV 86.3 D MCH 27.8 MCHC 32.2 RDW 14.8 H Plt Count 233 MPV 9.6 Neut % (Auto) 78.8 H Lymph % (Auto) 17.5 L [place] % (Auto) 3.2 Eos % (Auto) 0.5 L Baso % (Auto) 0.0 Lymph # (Auto) 1.1 L [place] # (Auto) 0.2 Eos # (Auto) 0.0 Baso # (Auto) 0.00 Absolute Neuts (auto) 4.73 PT 11.0 INR 0.97 Sodium 141 Potassium 3.4 L Chloride 107 Carbon Dioxide 25 Anion Gap 13 BUN 16 Creatinine 0.9 Est GFR ( Amer) > 60 Est GFR (Non-Af Amer) > 60 Random Glucose 106 Calcium 9.0 Phosphorus 4.4 Magnesium 2.4 H Total Bilirubin 0.4 AST 17 ALT 23 Alkaline Phosphatase 84 Total Protein 7.2 Albumin 3.9 Globulin 3.3 Albumin/Globulin Ratio 1.2 Blood Type Blood Type Confirm Antibody Screen Crossmatch BBK History Checked 05/19/18 05/19/18 05/19/18 12:30 13:00 21:20 WBC RBC Hgb Hct MCV MCH MCHC RDW Plt Count MPV Neut % (Auto) Lymph % (Auto) [place] % (Auto) Eos % (Auto) Baso % (Auto) Lymph # (Auto) [place] # (Auto) Eos # (Auto) Baso # (Auto) Absolute Neuts (auto) PT INR Sodium Potassium 3.0 L Chloride Carbon Dioxide Anion Gap BUN Creatinine Est GFR ( Amer) Est GFR (Non-Af Amer) Random Glucose Calcium Phosphorus Magnesium 1.7 Total Bilirubin AST ALT Alkaline Phosphatase Total Protein Albumin Globulin Albumin/Globulin Ratio Blood Type A POSITIVE Blood Type Confirm A POSITIVE Antibody Screen Negative Crossmatch See Detail BBK History Checked No verified bt 05/20/18 05/20/18 05:30 05:30 WBC 7.4 D RBC 4.31 Hgb 11.8 L D Hct 37.2 MCV 86.3 MCH 27.4 MCHC 31.7 RDW 15.3 H Plt Count 239 MPV 10.1 Neut % (Auto) 82.4 H Lymph % (Auto) 15.1 L [place] % (Auto) 1.9 Eos % (Auto) 0.5 L Baso % (Auto) 0.1 Lymph # (Auto) 1.1 L [place] # (Auto) 0.1 Eos # (Auto) 0.0 Baso # (Auto) 0.01 Absolute Neuts (auto) 6.11 PT INR Sodium 142 Potassium 4.0 Chloride 108 H Carbon Dioxide 26 Anion Gap 12 BUN 19 Creatinine 1.4 H Est GFR ( Amer) 47 Est GFR (Non-Af Amer) 38 Random Glucose 106 Calcium 8.1 L Phosphorus 6.5 H Magnesium 1.8 Total Bilirubin 0.6 AST 21 ALT 21 Alkaline Phosphatase 55 Total Protein 5.3 L Albumin 2.8 L Globulin 2.5 Albumin/Globulin Ratio 1.1 Blood Type Blood Type Confirm Antibody Screen Crossmatch BBK History Checked Radiology Impressions: Radiology Impressions Abdomen/Pelvis CT 05/19/18 10:58 IMPRESSION: Multiple clips are seen at the site of perforation which is at the junction of the rectum and sigmoid colon. There is no associated retroperitoneal air. There is a large amount of intraperitoneal free air. The study was reviewed with Dr. Rowland at 11:45 a.m. Chest X-Ray 05/19/18 18:13 IMPRESSION: Suspect right lower lobe pneumonia and small right pleural effusion. Follow-up after medical management is recommended to ensure complete resolution. The final report is tagged to the PA review folder. EKG/Cardiology Studies: Cardiology / EKG Studies 05/19/18 11:17 EKG [ELECTROCARDIOGRAM] Stat Comment: Reason For Exam: peaked t waves Critical Care Progress Note - Nutrition Nutrition: Nutrition Category Date Time Status NPO Diet [DIET] Diets 05/19/18 Dinner Ordered Attending/Attestation - Attestation I have personally seen and examined this patient.: Yes I have fully participated in the care of the patient.: Yes I have reviewed all pertinent clinical information: Yes Notes (Text): 05/20/18 12:06 The patient was seen and examined at the bedside. Patient care was discussed with resident Medical records, lab studies, and imaging were reviewed and management issues were discussed and formulated. Agree with above treatment plans as outlined in 's note with addition of the following: Sigmoid colon perforation \ HTN \ Ulcerative Colitis \ COPD \ ANNY -hemodynamic monitoring to maintain MAP>65 -hold anti-HTN meds while labile B\P -o2 supplementation to maintain Spo2 >90 Pao2>60; comfortable on NC at this time -continue nebs and Incentive spirometry -continue broad spectrum Abx as per ID team and f\u cultures -f\u Bun\Cr and U\o; monitor and replace e-lites; continue IVF -NPO diet and aspiration precautions -advance diet as per surgical team -PT\OT eval -DVT prophylaxis CCM time 31mins
[2018-05-20] MEDS ORDERED: Sodium Chloride 0.9% 1,000 ML IV SCH (08:00)
[2018-05-20] MEDS: Mesalamine 800 mg DR Tab PO SCH ×2 (09:00→14:42)
[2018-05-20] MEDS ORDERED: Enoxaparin 40 mg Syringe SC SCH (10:00)
--- NOTE | 2018-05-20 10:24 | CP.PCM.CON ---
<Rj Woods - Last Filed: 05/20/18 10:20> History of Present Illness - History of Present Illness History of Present Illness: Rj Woods D.O. PGY-3, Internal Medicine Resident, Infectious Disease Consultation Note 57-year-old female with a past medical history significant for hypertension, hyperlipidemia, ulcerative colitis, fibromyalgia, COPD, morbid obesity, and neuropathy who presented for colonoscopy complicated by rectosigmoid perforation. Infectious disease consultation was requested. Patient was seen and examined at bedside. Patient relates that she came in for this colonoscopy and afterwards had abdominal pain. Patient was taken for exploratory laparotomy yesterday. Patient states that she still has some abdominal discomfort at this time. Patient is trying to take deep breaths but the abdominal pain somewhat prevents this. Patient denies any other complaints at this time. Patient states that she has a long-term smoking history but wants to quit. Denies any alcohol or drug use. Has had an open cholecystectomy as a young girl as well as sinus surgery, parathyroid adenoma excision, and left foot surgery. Review of Systems - Review of Systems All systems: reviewed and no additional remarkable complaints except (as per HPI) Past Patient History - Infectious Disease Hx of Infectious Diseases: None - Tetanus Immunizations Tetanus Immunization: Unknown - Past Medical History & Family History Past Medical History?: Yes - Past Social History Smoking Status: Current Some Days Smoker - CARDIAC Hx Cardiac Disorders: Yes Hx Hypercholesterolemia: Yes Hx Hypertension: Yes Hx Pacemaker: No - PULMONARY Hx Respiratory Disorders: Yes (SMOKES 1 -2 CIG SOCIALLY) Hx Chronic Obstructive Pulmonary Disease (COPD): Yes Hx Sleep Apnea: Yes - NEUROLOGICAL Hx Neurological Disorder: Yes (FIBROMYALGIA) Other/Comment: neuropathy - HEENT Hx HEENT Problems: No - RENAL Hx Chronic Kidney Disease: No - ENDOCRINE/METABOLIC Hx Endocrine Disorders: Yes (PARATHYROID ADENOMA.) - HEMATOLOGICAL/ONCOLOGICAL Hx Blood Disorders: Yes (LEFT NECK MASS,PARATHYROID ADENOMA) - INTEGUMENTARY Hx Dermatological Problems: No Other/Comment: 4-3-19 POST EXPLORATORY LAP,SIGMOID RESECTION OF COLON,BRADSHAW'S PROCEDURE,CREATION OF COLOSTOMY-HAS LEFT SIDED ABDOMEN,BLACKE DRAIN 1. - MUSCULOSKELETAL/RHEUMATOLOGICAL Hx Musculoskeletal Disorders: Yes (L FOOT SX WITH HARDWARE AND WITH GRAFT.) Hx Falls: No Hx Herniated Disk: Yes (X2) - GASTROINTESTINAL Hx Gastrointestinal Disorders: Yes (RECTAL BLEED) Hx Gall Bladder Disease: Yes (OPEN CHOLECYSTECTOMY) - GENITOURINARY/GYNECOLOGICAL Hx Genitourinary Disorders: No - PSYCHIATRIC Hx Emotional Abuse: No Hx Physical Abuse: No Hx Substance Use: No - SURGICAL HISTORY Hx Surgeries: Yes (L FOOT SX 03/2017,PARTIAL THYROIDECTOMY,OPEN CHOLEYCYSTECTOMY) - ANESTHESIA Hx Anesthesia Reactions: No Hx Malignant Hyperthermia: No Meds Allergies/Adverse Reactions: Allergies Allergy/AdvReac Type Severity Reaction Status Date / Time Sulfa (Sulfonamide Allergy Severe RASH Verified 05/19/18 12:18 Antibiotics) - Medications Medications: Current Medications Acetaminophen (Tylenol 650 Mg Supp) 650 mg RC Q6H PRN PRN Reason: Fever >100.4 F Albuterol/Ipratropium (Duoneb 3 Mg/0.5 Mg (3 Ml) Ud) 3 ml IH [id number] [facility] Alprazolam (Xanax) 0.5 mg PO TID PRN; Protocol PRN Reason: Anxiety Heparin Sodium (Porcine) (Heparin) 5,000 units SC Q8 [facility]; Protocol Hydromorphone HCl (Dilaudid) 1 mg IVP Q4H PRN PRN Reason: Pain, severe (8-10) Last Admin: 05/20/18 08:59 Dose: 1 mg Piperacillin Sod/Tazobactam Sod (Zosyn 3.375 In Ns 100ml) 100 mls @ 25 mls/hr IVPB Q8 [facility]; Protocol Stop: 05/26/18 22:01 Last Admin: 05/20/18 06:28 Dose: 25 mls/hr Hydromorphone HCl (Dilaudid 0.2 Mg/Ml Irrigating Pump Operator) 30 mls @ 0 mls/hr IV .Q0M PRN; Ryan col PRN Reason: WOOD BOX MAKER PER MD ORDER Last Admin: 05/19/18 21:07 Dose: 5 mls/hr Sodium Chloride (Sodium Chloride 0.9%) 1,000 mls @ 80 mls/hr IV .[id number] [facility] Last Admin: 05/20/18 08:36 Dose: 80 mls/hr Lisinopril (Zestril) 40 mg PO DAILY [facility] Mesalamine (Asacol Hd 800mg) 800 mg PO TID [facility] Last Admin: 05/20/18 09:00 Dose: Not Given Metoclopramide HCl (Reglan) 10 mg IV ONCE PRN PRN Reason: Nausea/Vomiting Metoprolol Tartrate (Lopressor) 50 mg PO BID [facility] Last Admin: 05/20/18 09:01 Dose: Not Given Non-Formulary Medication (Budesonide/Formoterol Fumarate [Symbicort 160-4.5 Mcg Inhaler]) 2 aer IH BID [facility] Ondansetron HCl (Zofran Inj) 4 mg IVP Q6H PRN PRN Reason: Nausea/Vomiting Pregabalin (Lyrica) 150 mg PO TID [facility] Last Admin: 05/20/18 09:03 Dose: Not Given Physical Exam - Constitutional Appears: Non-toxic, No Acute Distress - Head Exam Head Exam: ATRAUMATIC, NORMOCEPHALIC - Eye Exam Eye Exam: EOMI. absent: Scleral icterus - ENT Exam ENT Exam: Mucous Membranes Moist, Normal Oropharynx Additional comments: NGT to suction with greenish fluid - Neck Exam Neck exam: Positive for: Normal Inspection - Respiratory Exam Respiratory Exam: Clear to Auscultation Bilateral. absent: Rhonchi, Wheezes - Cardiovascular Exam Cardiovascular Exam: RRR, +S1, +S2 - GI/Abdominal Exam GI & Abdominal Exam: Soft, Tenderness - Extremities Exam Extremities exam: Negative for: pedal edema - Neurological Exam Neurological exam: Alert, Oriented x3 - Skin Skin Exam: Dry, Warm Results - Vital Signs Recent Vital Signs: Last Vital Signs Temp 98 F 05/19/18 19:30 Pulse 88 05/20/18 04:00 Resp 14 05/20/18 04:00 BP 105/72 05/20/18 03:51 Pulse Ox 99 05/20/18 04:00 - Labs Result Diagrams: 05/20/18 05:30 05/20/18 05:30 Labs: Laboratory Results - last 24 hr 05/19/18 05/19/18 05/19/18 12:30 12:30 12:30 WBC 6.0 D RBC 5.25 Hgb 14.6 Hct 45.3 MCV 86.3 D MCH 27.8 MCHC 32.2 RDW 14.8 H Plt Count 233 MPV 9.6 Neut % (Auto) 78.8 H Lymph % (Auto) 17.5 L [place] % (Auto) 3.2 Eos % (Auto) 0.5 L Baso % (Auto) 0.0 Lymph # (Auto) 1.1 L [place] # (Auto) 0.2 Eos # (Auto) 0.0 Baso # (Auto) 0.00 Absolute Neuts (auto) 4.73 PT 11.0 INR 0.97 Sodium 141 Potassium 3.4 L Chloride 107 Carbon Dioxide 25 Anion Gap 13 BUN 16 Creatinine 0.9 Est GFR ( Amer) > 60 Est GFR (Non-Af Amer) > 60 Random Glucose 106 Calcium 9.0 Phosphorus 4.4 Magnesium 2.4 H Total Bilirubin 0.4 AST 17 ALT 23 Alkaline Phosphatase 84 Total Protein 7.2 Albumin 3.9 Globulin 3.3 Albumin/Globulin Ratio 1.2 Blood Type Blood Type Confirm Antibody Screen Crossmatch BBK History Checked 05/19/18 05/19/18 05/19/18 12:30 13:00 21:20 WBC RBC Hgb Hct MCV MCH MCHC RDW Plt Count MPV Neut % (Auto) Lymph % (Auto) [place] % (Auto) Eos % (Auto) Baso % (Auto) Lymph # (Auto) [place] # (Auto) Eos # (Auto) Baso # (Auto) Absolute Neuts (auto) PT INR Sodium Potassium 3.0 L Chloride Carbon Dioxide Anion Gap BUN Creatinine Est GFR ( Amer) Est GFR (Non-Af Amer) Random Glucose Calcium Phosphorus Magnesium 1.7 Total Bilirubin AST ALT Alkaline Phosphatase Total Protein Albumin Globulin Albumin/Globulin Ratio Blood Type A POSITIVE Blood Type Confirm A POSITIVE Antibody Screen Negative Crossmatch See Detail BBK History Checked No verified bt 05/20/18 05/20/18 05:30 05:30 WBC 7.4 D RBC 4.31 Hgb 11.8 L D Hct 37.2 MCV 86.3 MCH 27.4 MCHC 31.7 RDW 15.3 H Plt Count 239 MPV 10.1 Neut % (Auto) 82.4 H Lymph % (Auto) 15.1 L [place] % (Auto) 1.9 Eos % (Auto) 0.5 L Baso % (Auto) 0.1 Lymph # (Auto) 1.1 L [place] # (Auto) 0.1 Eos # (Auto) 0.0 Baso # (Auto) 0.01 Absolute Neuts (auto) 6.11 PT INR Sodium 142 Potassium 4.0 Chloride 108 H Carbon Dioxide 26 Anion Gap 12 BUN 19 Creatinine 1.4 H Est GFR ( Amer) 47 Est GFR (Non-Af Amer) 38 Random Glucose 106 Calcium 8.1 L Phosphorus 6.5 H Magnesium 1.8 Total Bilirubin 0.6 AST 21 ALT 21 Alkaline Phosphatase 55 Total Protein 5.3 L Albumin 2.8 L Globulin 2.5 Albumin/Globulin Ratio 1.1 Blood Type Blood Type Confirm Antibody Screen Crossmatch BBK History Checked Assessment & Plan - Assessment and Plan (Free Text) Assessment: 57-year-old female with a past medical history significant for hypertension, h yperlipidemia, ulcerative colitis, fibromyalgia, COPD, morbid obesity, and neuropathy who presented for colonoscopy complicated by rectosigmoid perforation. Infectious disease consultation was requested. Plan: Colonic perforation with intraperitoneal free air Hypertension Hyperlipidemia Ulcerative colitis COPD Neuropathy Patient is postop day #1 exploratory laparotomy with sigmoidectomy and end colostomy Has been afebrile No leukocytosis CT of the abdomen reviewed Chest x-ray has suspicion of right lower lobe pneumonia Given the intra-abdominal origin, we will maintain the patient on Zosyn now day 2 Blood cultures were drawn MRSA screen ordered Stool C. difficile pending HIV ordered Encouraged IS use, discussed potential complications of pneumonia if maintains low tidal volumes Surgical notes reviewed and appreciated We will follow with you Patient was seen and examined and case to be discussed with attending physician Thank you for the pleasure participating in the care of this interesting patient - Date & Time Date: 05/20/18 Time: 07:00 <Aki Hooker - Last Filed: 05/20/18 11:34> Meds - Medications Medications: Current Medications Acetaminophen (Tylenol 650 Mg Supp) 650 mg RC Q6H PRN PRN Reason: Fever >100.4 F Albuterol/Ipratropium (Duoneb 3 Mg/0.5 Mg (3 Ml) Ud) 3 ml IH [id number] [facility] Alprazolam (Xanax) 0.5 mg PO TID PRN; Protocol PRN Reason: Anxiety Arformoterol Tartrate (Brovana) 15 mcg IH [id number] [facility] Budesonide (Pulmicort Respules) 0.5 mg IH [id number] [facility] Heparin Sodium (Porcine) (Heparin) 5,000 units SC Q8 [facility]; Protocol Hydromorphone HCl (Dilaudid) 1 mg IVP Q4H PRN PRN Reason: Pain, severe (8-10) Last Admin: 05/20/18 08:59 Dose: 1 mg Piperacillin Sod/Tazobactam Sod (Zosyn 3.375 In Ns 100ml) 100 mls @ 25 mls/hr IVPB Q8 [facility]; Protocol Stop: 05/26/18 22:01 Last Admin: 05/20/18 06:28 Dose: 25 mls/hr Hydromorphone HCl (Dilaudid 0.2 Mg/Ml Irrigating Pump Operator) 30 mls @ 0 mls/hr IV .Q0M PRN; Protocol PRN Reason: WOOD BOX MAKER PER MD ORDER Last Admin: 05/19/18 21:07 Dose: 5 mls/hr Sodium Chloride (Sodium Chloride 0.9%) 1,000 mls @ 80 mls/hr IV .[id number] [facility] Last Admin: 05/20/18 08:36 Dose: 80 mls/hr Lisinopril (Zestril) 40 mg PO DAILY [facility] Mesalamine (Asacol Hd 800mg) 800 mg PO TID [facility] Last Admin: 05/20/18 09:00 Dose: Not Given Metoclopramide HCl (Reglan) 10 mg IV ONCE PRN PRN Reason: Nausea/Vomiting Metoprolol Tartrate (Lopressor) 50 mg PO BID [facility] Last Admin: 05/20/18 09:01 Dose: Not Given Ondansetron HCl (Zofran Inj) 4 mg IVP Q6H PRN PRN Reason: Nausea/Vomiting Pregabalin (Lyrica) 150 mg PO TID [facility] Last Admin: 05/20/18 09:03 Dose: Not Given Results - Vital Signs Recent Vital Signs: Last Vital Signs Temp 98 F 05/19/18 19:30 Pulse 88 05/20/18 04:00 Resp 14 05/20/18 04:00 BP 105/72 05/20/18 03:51 Pulse Ox 99 05/20/18 04:00 - Labs Result Diagrams: 05/20/18 05:30 05/20/18 05:30 Labs: Laboratory Results - last 24 hr 05/19/18 05/19/18 05/19/18 12:30 12:30 12:30 WBC 6.0 D RBC 5.25 Hgb 14.6 Hct 45.3 MCV 86.3 D MCH 27.8 MCHC 32.2 RDW 14.8 H Plt Count 233 MPV 9.6 Neut % (Auto) 78.8 H Lymph % (Auto) 17.5 L [place] % (Auto) 3.2 Eos % (Auto) 0.5 L Baso % (Auto) 0.0 Lymph # (Auto) 1.1 L [place] # (Auto) 0.2 Eos # (Auto) 0.0 Baso # (Auto) 0.00 Absolute Neuts (auto) 4.73 PT 11.0 INR 0.97 Sodium 141 Potassium 3.4 L Chloride 107 Carbon Dioxide 25 Anion Gap 13 BUN 16 Creatinine 0.9 Est GFR ( Amer) > 60 Est GFR (Non-Af Amer) > 60 Random Glucose 106 Calcium 9.0 Phosphorus 4.4 Magnesium 2.4 H Total Bilirubin 0.4 AST 17 ALT 23 Alkaline Phosphatase 84 Total Protein 7.2 Albumin 3.9 Globulin 3.3 Albumin/Globulin Ratio 1.2 Blood Type Blood Type Confirm Antibody Screen Crossmatch BBK History Checked 05/19/18 05/19/18 05/19/18 12:30 13:00 21:20 WBC RBC Hgb Hct MCV MCH MCHC RDW Plt Count MPV Neut % (Auto) Lymph % (Auto) [place] % (Auto) Eos % (Auto) Baso % (Auto) Lymph # (Auto) [place] # (Auto) Eos # (Auto) Baso # (Auto) Absolute Neuts (auto) PT INR Sodium Potassium 3.0 L Chloride Carbon Dioxide Anion Gap BUN Creatinine Est GFR ( Amer) Est GFR (Non-Af Amer) Random Glucose Calcium Phosphorus Magnesium 1.7 Total Bilirubin AST ALT Alkaline Phosphatase Total Protein Albumin Globulin Albumin/Globulin Ratio Blood Type A POSITIVE Blood Type Confirm A POSITIVE Antibody Screen Negative Crossmatch See Detail BBK History Checked No verified bt 05/20/18 05/20/18 05:30 05:30 WBC 7.4 D RBC 4.31 Hgb 11.8 L D Hct 37.2 MCV 86.3 MCH 27.4 MCHC 31.7 RDW 15.3 H Plt Count 239 MPV 10.1 Neut % (Auto) 82.4 H Lymph % (Auto) 15.1 L [place] % (Auto) 1.9 Eos % (Auto) 0.5 L Baso % (Auto) 0.1 Lymph # (Auto) 1.1 L [place] # (Auto) 0.1 Eos # (Auto) 0.0 Baso # (Auto) 0.01 Absolute Neuts (auto) 6.11 PT INR Sodium 142 Potassium 4.0 Chloride 108 H Carbon Dioxide 26 Anion Gap 12 BUN 19 Creatinine 1.4 H Est GFR ( Amer) 47 Est GFR (Non-Af Amer) 38 Random Glucose 106 Calcium 8.1 L Phosphorus 6.5 H Magnesium 1.8 Total Bilirubin 0.6 AST 21 ALT 21 Alkaline Phosphatase 55 Total Protein 5.3 L Albumin 2.8 L Globulin 2.5 Albumin/Globulin Ratio 1.1 Blood Type Blood Type Confirm Antibody Screen Crossmatch BBK History Checked Attending/Attestation - Attestation I have personally seen and examined this patient.: Yes I have fully participated in the care of the patient.: Yes I have reviewed all pertinent clinical information: Yes
[2018-05-20] MEDS ORDERED: HYDROmorphone 2 mg/ml ISec IVP PRN (11:51)
[2018-05-20] MEDS ORDERED: HYDROmorphone 0.5 mg/0.5 ml ISec IVP PRN (12:02)
[2018-05-20] MEDS ORDERED: 0.125% Bupivacaine in 0.9% NS 400mL On Q pump IJ SCH (12:15)
--- NOTE | 2018-05-20 13:46 | PN ---
DATE: 05/20/2018 SUBJECTIVE: The patient is lying in bed comfortable. She has an NG tube draining scant amount of bilious fluid. She underwent a sigmoid resection of sigmoid perforation with a Aric's procedure with a colostomy. She denies any nausea, vomiting. PHYSICAL EXAMINATION: VITAL SIGNS: She is afebrile. Blood pressure 105/72, heart rate of 88. HEENT: Reveal sclerae to be white. Conjunctivae pale. NECK: Supple. CHEST: Reveal lungs to be clear. HEART: Exam reveals a regular rate and rhythm. ABDOMEN: Soft. She has a dressing over the lower abdomen. She does have a left lower quadrant colostomy as well as a Arnaud drain in the lower abdomen. EXTREMITIES: No edema. LABORATORY DATA: White blood cell count 7.4, hemoglobin 11.8. Chemistries reveal BUN 19, creatinine 1.4. AST, ALT, alk phos were all normal. Potassium of 4. IMPRESSION: This is a 57-year-old female with ulcerative colitis who underwent a colonoscopy and developed a perforation during the procedure, underwent exploratory laparotomy with a Aric's procedure and a sigmoid colostomy. She is stable postoperatively. RECOMMENDATIONS: 1. Continue IV antibiotics. 2. We will get the patient out of bed to chair. 3. Follow vital signs and electrolytes. Derek Rowland MD
[2018-05-20] MEDS ORDERED: Vancomycin 25 MG/ML PO SCH (14:00)
--- NOTE | 2018-05-20 14:37 | CP.PCM.PN ---
Subjective - Date & Time of Evaluation Date of Evaluation: 05/20/18 Time of Evaluation: 14:31 - Subjective Subjective: PGY1 General Surgery Progress Note for Dr. Ontiveros Patient seen and evaluated at bedside this morning. Patient complains of abdominal pain 810. Patient admits to mild, tolerable nausea, however Patient denies vomiting, fever, and/or chills. S/P Tran's procedure with Dr. Ontiveros POD-1 Objective - Vital Signs/Intake and Output Vital Signs (last 24 hours): Temp Pulse Resp BP Pulse Ox 99 F 95 H 17 108/61 100 05/20/18 12:00 05/20/18 12:30 05/20/18 12:30 05/20/18 12:04 05/20/18 12:30 Intake and Output: 05/20/18 05/20/18 06:59 18:59 Intake Total 1200 Output Total 860 Balance 340 - Medications Medications: Current Medications Acetaminophen (Tylenol 650 Mg Supp) 650 mg RC Q6H PRN PRN Reason: Fever >100.4 F Albuterol/Ipratropium (Duoneb 3 Mg/0.5 Mg (3 Ml) Ud) 3 ml IH [id number] [facility] Alprazolam (Xanax) 0.5 mg PO TID PRN; Protocol PRN Reason: Anxiety Arformoterol Tartrate (Brovana) 15 mcg IH [id number] [facility] Budesonide (Pulmicort Respules) 0.5 mg IH [id number] [facility] Heparin Sodium (Porcine) (Heparin) 5,000 units SC Q8 [facility]; Protocol Hydromorphone HCl (Dilaudid) 0.5 mg IVP Q3H PRN PRN Reason: Pain, severe (8-10) Last Admin: 05/20/18 12:13 Dose: 0.5 mg Piperacillin Sod/Tazobactam Sod (Zosyn 3.375 In Ns 100ml) 100 mls @ 25 mls/hr IVPB Q8 [facility]; Protocol Stop: 05/21/18 22:01 Last Admin: 05/20/18 06:28 Dose: 25 mls/hr Sodium Chloride (Sodium Chloride 0.9%) 1,000 mls @ 80 mls/hr IV .[id number] [facility] Last Admin: 05/20/18 08:36 Dose: 80 mls/hr Hydromorphone HCl (Dilaudid 0.2 Mg/Ml Metal Lather) 30 mls @ 0 mls/hr IV PRN PRN; Protocol PRN Reason: MANAGER STUDIO PER MD ORDER Lisinopril (Zestril) 40 mg PO DAILY [facility] Mesalamine (Asacol Hd 800mg) 800 mg PO TID [facility] Last Admin: 05/20/18 09:00 Dose: Not Given Metoclopramide HCl (Reglan) 10 mg IV ONCE PRN PRN Reason: Nausea/Vomiting Metoprolol Tartrate (Lopressor) 50 mg PO BID [facility] Last Admin: 05/20/18 09:01 Dose: Not Given Ondansetron HCl (Zofran Inj) 4 mg IVP Q6H PRN PRN Reason: Nausea/Vomiting Pregabalin (Lyrica) 150 mg PO TID [facility] Last Admin: 05/20/18 09:03 Dose: Not Given Vancomycin HCl (Vancocin 25 Mg/Ml (Oral Use)) 125 mg PO QID [facility]; Protocol - Labs Labs: 05/20/18 05:30 05/20/18 05:30 PT 11.0 SECONDS (9.4-12.5) 05/19/18 12:30 INR 0.97 05/19/18 12:30 - Additional Findings Additional findings: Constitutional Appears: Non-toxic, No Acute Distress - Head Exam Head Exam: ATRAUMATIC, NORMAL INSPECTION - Eye Exam Eye Exam: EOMI, Normal appearance - Respiratory Exam Respiratory Exam: NORMAL BREATHING PATTERN. absent: Respiratory Distress - Cardiovascular Exam Cardiovascular Exam: +S1, +S2 - GI/Abdominal Exam GI & Abdominal Exam: Soft, Tenderness at surgical site. absent: Distended, Firm, Guarding, Rigid Additional comments: well healed open cholecystectomy scar Surgical Site intact, clean, and dry - Neurological Exam Neurological exam: Alert, CN II-XII Intact, Oriented x3 - Psychiatric Exam Psychiatric exam: Normal Affect, Normal Mood - Skin Skin Exam: Dry, Normal Color, Warm Assessment and Plan - Assessment and Plan (Free Text) Assessment: 57yo F with PMHx of HTN, HLD, Ulcerative colitis on mesalamine, COPD, neuropathy who has a sigmoid perforation s/p Hartmans Procedure with Dr. Ontiveros, POD-1 Plan: - Ex lap; Tran's procedure performed - 1L LR bolus administered this morning - Currently on maintenance fluids - Continue IV Abx - NPO - Patient is C-diff positive - On MANAGER STUDIO pump / Dilaudid for pain management - Encouraged IS, OOB, and ambulation as tolerated Discussed plan with Dr. Weston Cano PGY1
[2018-05-20] MEDS: Albuterol-Ipratrop 3 mg / 0.5 (3 ml) UD IH SCH ×2 (14:49→20:13)
[2018-05-20] MEDS: HYDROmorphone 0.2 mg/ml (30ml) 30 ML IV PRN ×2 (14:54→17:19)
--- NOTE | 2018-05-20 15:13 | CP.PCM.APN ---
Subjective - Date & Time of Evaluation Date of Evaluation: 05/20/18 Time of Evaluation: 13:00 - Subjective Subjective: Pt. seen and examined in bed, complaints of abdominal pain, on Dilaudid LASTING MACHINE OPERATOR, NGT in place. Objective - Vital Signs/Intake and Output Vital Signs (last 24 hours): Temp Pulse Resp BP Pulse Ox 99 F 95 H 17 108/61 100 05/20/18 12:00 05/20/18 12:30 05/20/18 12:30 05/20/18 12:04 05/20/18 12:30 Intake and Output: 05/20/18 05/20/18 06:59 18:59 Intake Total 1200 Output Total 860 Balance 340 - Medications Medications: Current Medications Acetaminophen (Tylenol 650 Mg Supp) 650 mg RC Q6H PRN PRN Reason: Fever >100.4 F Albuterol/Ipratropium (Duoneb 3 Mg/0.5 Mg (3 Ml) Ud) 3 ml IH [id number] [facility] Last Admin: 05/20/18 14:49 Dose: Not Given Alprazolam (Xanax) 0.5 mg PO TID PRN; Protocol PRN Reason: Anxiety Arformoterol Tartrate (Brovana) 15 mcg IH [id number] [facility] Budesonide (Pulmicort Respules) 0.5 mg IH [id number] [facility] Heparin Sodium (Porcine) (Heparin) 5,000 units SC Q8 [facility]; Protocol Last Admin: 05/20/18 14:46 Dose: 5,000 units Hydromorphone HCl (Dilaudid) 0.5 mg IVP Q3H PRN PRN Reason: Pain, severe (8-10) Last Admin: 05/20/18 12:13 Dose: 0.5 mg Piperacillin Sod/Tazobactam Sod (Zosyn 3.375 In Ns 100ml) 100 mls @ 25 mls/hr IVPB Q8 [facility]; Protocol Stop: 05/21/18 22:01 Last Admin: 05/20/18 14:45 Dose: 25 mls/hr Sodium Chloride (Sodium Chloride 0.9%) 1,000 mls @ 80 mls/hr IV .[id number] [facility] Last Admin: 05/20/18 08:36 Dose: 80 mls/hr Hydromorphone HCl (Dilaudid 0.2 Mg/Ml Staff Reporter) 30 mls @ 0 mls/hr IV PRN PRN; Protocol PRN Reason: LASTING MACHINE OPERATOR PER MD ORDER Last Admin: 05/20/18 14:54 Dose: 0.5 mls/hr Lisinopril (Zestril) 40 mg PO DAILY [facility] Mesalamine (Asacol Hd 800mg) 800 mg PO TID [facility] Last Admin: 05/20/18 14:42 Dose: Not Given Metoclopramide HCl (Reglan) 10 mg IV ONCE PRN PRN Reason: Nausea/Vomiting Metoprolol Tartrate (Lopressor) 50 mg PO BID [facility] Last Admin: 05/20/18 09:01 Dose: Not Given Ondansetron HCl (Zofran Inj) 4 mg IVP Q6H PRN PRN Reason: Nausea/Vomiting Pregabalin (Lyrica) 150 mg PO TID [facility] Last Admin: 05/20/18 14:43 Dose: Not Given Vancomycin HCl (Vancocin 25 Mg/Ml (Oral Use)) 125 mg PO QID [facility]; Protocol Last Admin: 05/20/18 14:43 Dose: Not Given - Labs Labs: 05/20/18 05:30 05/20/18 05:30 PT 11.0 SECONDS (9.4-12.5) 05/19/18 12:30 INR 0.97 05/19/18 12:30 - Constitutional Appears: Well, Non-toxic - Head Exam Head Exam: NORMOCEPHALIC - Eye Exam Eye Exam: Normal appearance - ENT Exam ENT Exam: Mucous Membranes Moist - Neck Exam Neck Exam: Full ROM - Respiratory Exam Respiratory Exam: Decreased Breath Sounds - Cardiovascular Exam Cardiovascular Exam: REGULAR RHYTHM, +S1, +S2 - GI/Abdominal Exam GI & Abdominal Exam: Diminished Bowel Sounds Additional comments: Gtube, colostomy in place, BENJAMÍN drain noted. - Rectal Exam Rectal Exam: Deferred - Exam Exam: absent: Circumcision, NORMAL INSPECTION, Scrotal Swelling, Testicular Tenderness, Uretheral Discharge, Testicular Vertical Lie, Bladder Distension External exam: absent: Ecchymosis, Erythema, Lacerations, Lesions, NORMAL EXTERNAL EXAM, Swelling Speculum exam: absent: Cervical Discharge, Erythema, Foreign Body, Laceration, NORMAL SPECULUM EXAM, Tissue, Vaginal Bleeding, Vaginal Discharge Bimanual exam: absent: Adenexal Mass, Adnexal, Cervical Motion Tendernes, NORMAL BIMANUAL EXAM, Uterine Enlargement, Uterine Tenderness - Back Exam Back Exam: Full ROM, NORMAL INSPECTION - Neurological Exam Neurological Exam: Alert, Awake, Oriented x3 - Psychiatric Exam Psychiatric exam: Depressed - Skin Skin Exam: Normal Color, Warm Assessment and Plan - Assessment and Plan (Free Text) Assessment: ITS Impressions Abdomen/Pelvis CT 05/19/18 10:58 IMPRESSION: Multiple clips are seen at the site of perforation which is at the junction of the rectum and sigmoid colon. There is no associated retroperitoneal air. There is a large amount of intraperitoneal free air. The study was reviewed with Dr. Rowland at 11:45 a.m. Chest X-Ray 05/19/18 18:13 IMPRESSION: Suspect right lower lobe pneumonia and small right pleural effusion. Follow-up after medical management is recommended to ensure complete resolution. The final report is tagged to the PA review folder. Assessment: 57-year-old female with a past medical history significant for hypertension, hyperlipidemia, ulcerative colitis, fibromyalgia, COPD, morbid obesity, and neuropathy who presented for colonoscopy complicated by rectosigmoid perforation. Plan: 1. Colonic perforation during colonoscopy, now, with repair ,POD#1 s/p Tran's procedure, and colostomy . continue NGT, NPO as per surgery, IVF, monitor I's O's, IV antibiotics as per I.D.,pain meds per surgery. 2. RLL pneumonia I.S q hour, antibx per I.D. trend wbc, monitor for fever, blood cultures pending. 3. C.Diff colitis consider IV Flagyl/ Vanco , monitor for loose stools. REcs as per G.I. PT eval pending, will continue to monitor clinical status and follow closely.
[2018-05-20] MEDS: Metoprolol 1 mg/ml Inj IVP SCH ×2 (16:48→22:30)
[2018-05-20] MEDS ORDERED: Non Formulary Medication (Budesonide/Formoterol Fumarate [Symbicort 160-4.5 Mcg Inhaler] 2 IH SCH (18:00)
[2018-05-20] MEDS: Potassium Chloride 20 MEQ in Dextrose 5%/0.45% NS 1,000 ML IV SCH (18:26)
[2018-05-20] MEDS: Arformoterol 15 mcg/2 ml Inh Sol IH SCH (20:13)
[2018-05-20] MEDS: Budesonide 0.5 mg/2 ml Inhal Susp UD IH SCH (20:19)
[2018-05-20] MEDS ORDERED: metroNIDAZOLE IV 500 mg/100 ml 500 MG/100 ML BAG IVPB SCH (22:00)
[2018-05-21] MEDS: Albuterol-Ipratrop 3 mg / 0.5 (3 ml) UD IH SCH ×4 (02:25→21:09)
[2018-05-21] MEDS: Potassium Chloride 20 MEQ in Dextrose 5%/0.45% NS 1,000 ML IV SCH ×2 (02:33→11:12)
[2018-05-21] MEDS: Metoprolol 1 mg/ml Inj IVP SCH ×2 (05:36→17:39)
[2018-05-21] MEDS: Piperacillin/Tazobact 3.375 gm 100 ML IVPB SCH ×3 (05:39→23:40)
[2018-05-21] MEDS ORDERED: HYDROmorphone 0.5 mg/0.5 ml ISec IVP PRN (06:34)
[2018-05-21 06:37] LABS: BASO # 0.01 K/mm3 (0.0-2.0); BASO % 0.1 % (0.0-3.0); EOS # 0.2 (0.0-0.7); EOS % 1.5 % (1.5-5.0); HEMOGLOBIN 10.8 g/dL (12.0-16.0); LYMPH % 8.5 % (22.0-35.0); MEAN CELL VOLUME 86.5 fl (80.0-105.0); MEAN CORPUSCULAR HEMOGLOBIN 27.1 pg (25.0-35.0); MEAN CORPUSCULAR HGB CONC 31.3 g/dl (31.0-37.0); MEAN PLATELET VOLUME 10.1 fl (7.0-11.0); MONO # 0.2 (0.1-0.6); MONO % 1.6 % (1.0-6.0); RBC 3.99 10^6/uL (3.5-6.1); RED CELL DISTRIBUTION WIDTH 15.4 % (11.5-14.5); WHITE BLOOD COUNT 11.8 10^3/uL (4.5-11.0)
[2018-05-21] MEDS: Arformoterol 15 mcg/2 ml Inh Sol IH SCH ×2 (07:13→21:09)
[2018-05-21] MEDS: Budesonide 0.5 mg/2 ml Inhal Susp UD IH SCH ×2 (07:13→21:10)
[2018-05-21 07:14] LABS: ALB/GLOB RATIO 0.8 (1.1-1.8); ALBUMIN 2.6 g/dL (3.0-4.8); ALT/SGPT 22 U/L (7-56); AST/SGOT 27 U/L (14-36); BLOOD UREA NITROGEN 11 mg/dL (7-21); CALCIUM 8.2 mg/dL (8.4-10.5); GFR NON-AFRICAN AMERICAN > 60
--- NOTE | 2018-05-21 10:21 | CP.CCUPN ---
<EmileSp Ryan - Last Filed: 05/21/18 12:50> CCU Subjective - Physician Review Events Since Last Encounter (Free Text): 05/21/18 10:18 pt on isolation, no acute events Subjective (Free Text): 05/20/18 10:27 Pt seen and examined, reports abdominal pain 05/21/18 10:20 Seen and examined this morning, no new complaints CCU Objective - Vital Signs / Intake & Output Vital Signs (Last 4 hours): Vital Signs Pulse Resp BP Pulse Ox 05/21/18 07:30 116 H 16 99 05/21/18 07:00 108 H 22 97 05/21/18 06:56 109 H 21 144/70 100 05/21/18 06:30 101 H 14 98 05/21/18 06:27 99 H 13 132/96 H 100 Intake and Output (Last 8hrs): Intake & Output 05/20/18 05/21/18 05/21/18 22:59 06:59 14:59 Intake Total 2029 1950 Output Total 840 575 Balance 1190 1375 Intake: IV 2029 1920 IVF 1900 1620 antibiotics 100 300 Oral 30 Output: Gastric Amount 160 160 Right Nares 160 160 Drainage 30 15 Right Abdomen 30 15 Urine 650 400 Urethral ([place]) 650 400 Stool 0 Other: # Bowel Movements 0 0 - Physical Exam Head: Positive for: Atraumatic, Normocephalic Pupils: Positive for: PERRL Extroacular Muscles: Positive for: EOMI Mouth: Positive for: Moist Mucous Membranes Neck: Positive for: Normal Range of Motion Respiratory/Chest: Positive for: Clear to Auscultation, Good Air Exchange. Negative for: Respiratory Distress Cardiovascular: Positive for: Regular Rate and Rhythm, Normal S1, S2. Negative for: Murmurs Abdomen: Positive for: Tenderness, Normal Bowel Sounds, Other (colostomy in place, bandages clean dry and in place). Negative for: Distention Upper Extremity: Positive for: Normal Inspection. Negative for: Cyanosis, Edema Lower Extremity: Positive for: Normal Inspection. Negative for: Edema Neurological: Positive for: GCS=15, CN II-XII Intact, Speech Normal Skin: Positive for: Warm, Dry, Rashes Psychiatric: Positive for: Alert, Oriented x 3 - Medications Active Medications: Active Medications Generic Name Dose Route Start Last Admin Trade Name Freq PRN Reason Stop Dose Admin Acetaminophen 650 mg 04/05/19 06:55 Tylenol 325mg Tab PO Q4H PRN Pain, Mild (1-3) Albuterol/Ipratropium 3 ml 05/20/18 10:00 05/21/18 07:13 Duoneb 3 Mg/0.5 Mg (3 Ml) Ud IH 3 ml [id number] MOISÉS Administration Alprazolam 0.5 mg 05/20/18 18:00 05/20/18 17:22 Xanax PO Not Given BID [facility] Protocol Arformoterol Tartrate 15 mcg 05/20/18 20:00 05/21/18 07:13 Brovana IH 15 mcg [id number] MOISÉS Administration Budesonide 0.5 mg 05/20/18 20:00 05/21/18 07:13 Pulmicort Respules IH 0.5 mg [id number] MOISÉS Administration Heparin Sodium (Porcine) 5,000 units 05/20/18 14:00 05/21/18 05:37 Heparin SC 5,000 units Q8 MOISÉS Administration Protocol Piperacillin Sod/Tazobactam Sod 100 mls @ 25 mls/hr 05/19/18 22:00 05/21/18 05:39 Zosyn 3.375 In Ns 100ml IVPB 05/26/18 22:01 25 mls/hr Q8 MOISÉS Administration Protocol Potassium Chloride 20 meq/ 1,010 mls @ 135 mls/hr 05/20/18 18:00 05/21/18 02:33 Dextrose/Sodium Chloride IV 135 mls/hr .[id number] MOISÉS Administration Lisinopril 40 mg 05/20/18 10:00 Zestril PO DAILY [facility] Lorazepam 0.5 mg 05/20/18 16:24 05/21/18 01:15 Ativan IVP 0.5 mg Q6H PRN Administration Anxiety Protocol Mesalamine 800 mg 05/19/18 14:00 05/20/18 14:42 Asacol Hd 800mg PO Not Given TID [facility] Metoclopramide HCl 10 mg 05/19/18 18:14 Reglan IV ONCE PRN Nausea/Vomiting Metoprolol Tartrate 50 mg 05/19/18 18:00 05/20/18 09:01 Lopressor PO Not Given BID [facility] Metoprolol Tartrate 5 mg 05/20/18 16:30 05/21/18 05:36 Lopressor IVP 5 mg Q6H MOISÉS Administration Ondansetron HCl 4 mg 05/19/18 18:30 Zofran Inj IVP Q6H PRN Nausea/Vomiting Oxycodone HCl 5 mg 05/21/18 06:53 Oxycodone Immediate Release Tab PO Q6H PRN Pain, severe (8-10) Pregabalin 150 mg 05/19/18 14:00 05/20/18 14:43 Lyrica PO Not Given TID MOISÉS Tramadol HCl 50 mg 05/21/18 06:53 05/21/18 08:19 Ultram PO 50 mg TID PRN Administration Pain, moderate (4-7) Vancomycin HCl 125 mg 05/21/18 10:00 Vancocin 25 Mg/Ml (Oral Use) PO 05/31/18 10:01 QID MOISÉS Protocol - Patient Studies Lab Studies: Microbiology Studies 05/19/18 20:20 MRSA Culture (Admit) - Final Nose MRSA NOT DETECTED 05/19/18 18:00 Blood Culture - Preliminary Blood NO GROWTH AFTER 24 HOURS 05/19/18 18:30 Blood Culture - Preliminary Blood NO GROWTH AFTER 24 HOURS 05/19/18 13:00 C. difficile Antigen & Toxins A,B - Final Stool Lab Studies 05/21/18 05/21/18 05/19/18 Range/Units 06:30 04:30 18:30 WBC 11.8 H D (4.5-11.0) 10^3/uL RBC 3.99 (3.5-6.1) 10^6/uL Hgb 10.8 L (12.0-16.0) g/dL Hct 34.5 L (36.0-48.0) % MCV 86.5 (80.0-105.0) fl MCH 27.1 (25.0-35.0) pg MCHC 31.3 (31.0-37.0) g/dl RDW 15.4 H (11.5-14.5) % Plt Count 187 (120.0-450.0) 10^3/uL MPV 10.1 (7.0-11.0) fl Neut % (Auto) 88.3 H (50.0-68.0) % Lymph % (Auto) 8.5 L (22.0-35.0) % [place] % (Auto) 1.6 (1.0-6.0) % Eos % (Auto) 1.5 (1.5-5.0) % Baso % (Auto) 0.1 (0.0-3.0) % Lymph # (Auto) 1.0 L (1.2-3.4) [place] # (Auto) 0.2 (0.1-0.6) Eos # (Auto) 0.2 (0.0-0.7) Baso # (Auto) 0.01 (0.0-2.0) K/mm3 Absolute Neuts (auto) 10.40 H (1.4-6.5) Sodium 140 (132-148) mmol/L Potassium 3.5 L (3.6-5.0) mmol/L Chloride 105 (98-107) mmol/L Carbon Dioxide 29 (21-33) mmol/L Anion Gap 9 L (10-20) BUN 11 (7-21) mg/dL Creatinine 0.9 (0.7-1.2) mg/dl Est GFR ( Amer) > 60 Est GFR (Non-Af Amer) > 60 Random Glucose 129 H (70-110) mg/dL Calcium 8.2 L (8.4-10.5) mg/dL Phosphorus 2.5 (2.5-4.5) mg/dL Magnesium 2.0 (1.7-2.2) mg/dL Total Bilirubin 0.3 (0.2-1.3) mg/dL AST 27 (14-36) U/L ALT 22 (7-56) U/L Alkaline Phosphatase 71 (38-126) U/L Total Protein 5.7 L (5.8-8.3) g/dL Albumin 2.6 L (3.0-4.8) g/dL Globulin 3.1 gm/dL Albumin/Globulin Ratio 0.8 L (1.1-1.8) HIV 1&2 Ag/Ab, 4th Gen Nonreactive (Nonreactive) Laboratory Results - last 24 hr 05/19/18 05/21/18 05/21/18 18:30 04:30 06:30 WBC 11.8 H D RBC 3.99 Hgb 10.8 L Hct 34.5 L MCV 86.5 MCH 27.1 MCHC 31.3 RDW 15.4 H Plt Count 187 MPV 10.1 Neut % (Auto) 88.3 H Lymph % (Auto) 8.5 L [place] % (Auto) 1.6 Eos % (Auto) 1.5 Baso % (Auto) 0.1 Lymph # (Auto) 1.0 L [place] # (Auto) 0.2 Eos # (Auto) 0.2 Baso # (Auto) 0.01 Absolute Neuts (auto) 10.40 H Sodium 140 Potassium 3.5 L Chloride 105 Carbon Dioxide 29 Anion Gap 9 L BUN 11 Creatinine 0.9 Est GFR ( Amer) > 60 Est GFR (Non-Af Amer) > 60 Random Glucose 129 H Calcium 8.2 L Phosphorus 2.5 Magnesium 2.0 Total Bilirubin 0.3 AST 27 ALT 22 Alkaline Phosphatase 71 Total Protein 5.7 L Albumin 2.6 L Globulin 3.1 Albumin/Globulin Ratio 0.8 L HIV 1&2 Ag/Ab, 4th Gen Nonreactive Radiology Impressions: Radiology Impressions Chest X-Ray 05/19/18 18:13 IMPRESSION: Suspect right lower lobe pneumonia and small right pleural effusion. Follow-up after medical management is recommended to ensure complete resolution. The final report is tagged to the PA review folder. Critical Care Progress Note - Nutrition Nutrition: Nutrition Category Date Time Status Liquid Diet [DIET] Diets 05/21/18 Breakfast Ordered Assessment/Plan - Assessment and Plan (Free Text) Assessment: Pt is a 57 yo female with a PMH of HTN, HLD, UC fibromyalgia, rectal bleeding, partial thyroidectomy, and neuropathy who was receiving a colonoscopy experienced a rectal perforation during the procedure. Plan: Neuro - fibromyalgia, neuropathy, anxiety - continue to monitor neuro status - ativan 0.5 Q6 PRN Cardio - HTN, HLD - RRR - lisinopril, metoprolol Pulm - COPD - duonebs q6, brovana, pulmicort GI - UC, rectal bleeding, rectal perforation - mesalamine - pt underwent sigmoid resection and colostomy placement - NPO - Surgery consulted, Dr Ontiveros Nephro/ - monitor electrolytes - monitor BUN/Cr 11/0.9 Heme/ Onc - monitor H/H - Hgb 10.8 - INR 0.97 ID - no leukocytosis - metronidazole, zosyn, vanc - ID consulted, Dr Hooker Endo - partial thyroidectomy Pt seen, examined, assessment and plan discussed with Dr Adrian Baptiste PGY1 - Date & Time Date: 05/21/18 Time: 10:22 <Spencer Campbell - Last Filed: 05/21/18 12:57> CCU Objective - Vital Signs / Intake & Output Vital Signs (Last 4 hours): Vital Signs Pulse BP 05/21/18 09:57 128 H 152/93 H Intake and Output (Last 8hrs): Intake & Output 05/20/18 05/21/18 05/21/18 22:59 06:59 14:59 Intake Total 2029 1950 Output Total 840 575 Balance 1190 1375 Intake: IV 2029 192 IVF 1900 1620 antibiotics 100 300 Oral 30 Output: Gastric Amount 160 160 Right Nares 160 160 Drainage 30 15 Right Abdomen 30 15 Urine 650 400 Urethral ([place]) 650 400 Stool 0 Other: # Bowel Movements 0 0 - Medications Active Medications: Active Medications Generic Name Dose Route Start Last Admin Trade Name Freq PRN Reason Stop Dose Admin Acetaminophen 650 mg 05/21/18 06:55 Tylenol 325mg Tab PO Q4H PRN Pain, Mild (1-3) Albuterol/Ipratropium 3 ml 05/20/18 10:00 05/21/18 07:13 Duoneb 3 Mg/0.5 Mg (3 Ml) Ud IH 3 ml [id number] MOISÉS Administration Alprazolam 0.5 mg 05/20/18 18:00 05/21/18 10:00 Xanax PO 0.5 mg BID MOISÉS Administration Protocol Arformoterol Tartrate 15 mcg 05/20/18 20:00 05/21/18 07:13 Brovana IH 15 mcg [id number] MOISÉS Administration Budesonide 0.5 mg 05/20/18 20:00 05/21/18 07:13 Pulmicort Respules IH 0.5 mg [id number] MOISÉS Administration Heparin Sodium (Porcine) 5,000 units 05/20/18 14:00 05/21/18 05:37 Heparin SC 5,000 units Q8 MOISÉS Administration Protocol Piperacillin Sod/Tazobactam Sod 100 mls @ 25 mls/hr 05/19/18 22:00 05/21/18 05:39 Zosyn 3.375 In Ns 100ml IVPB 05/26/18 22:01 25 mls/hr Q8 MOISÉS Administration Protocol Potassium Chloride 20 meq/ 1,010 mls @ 135 mls/hr 05/20/18 18:00 05/21/18 11:12 Dextrose/Sodium Chloride IV 135 mls/hr .Q7H29M MOISÉS Administration Lisinopril 40 mg 05/20/18 10:00 05/21/18 09:57 Zestril PO 40 mg DAILY MOIS[facility]S Administration Lorazepam 0.5 mg 05/20/18 16:24 05/21/18 01:15 Ativan IVP 0.5 mg Q6H PRN Administration Anxiety Protocol Mesalamine 800 mg 05/19/18 14:00 05/21/18 12:18 Asacol Hd 800mg PO 800 mg TID MOISÉS Administration Metoclopramide HCl 10 mg 05/19/18 18:14 Reglan IV ONCE PRN Nausea/Vomiting Metoprolol Tartrate 50 mg 05/19/18 18:00 05/21/18 09:57 Lopressor PO 50 mg BID MOISÉS Administration Ondansetron HCl 4 mg 05/19/18 18:30 Zofran Inj IVP Q6H PRN Nausea/Vomiting Oxycodone HCl 5 mg 05/21/18 06:53 05/21/18 12:21 Oxycodone Immediate Release Tab PO 5 mg Q6H PRN Administration Pain, severe (8-10) Pregabalin 150 mg 05/21/18 10:58 Lyrica PO TID [facility] Tramadol HCl 50 mg 05/21/18 06:53 05/21/18 08:19 Ultram PO 50 mg TID PRN Administration Pain, moderate (4-7) Vancomycin HCl 125 mg 05/21/18 10:00 05/21/18 11:11 Vancocin 25 Mg/Ml (Oral Use) PO 05/31/18 10:01 125 mg QID MOISÉS Administration Protocol - Patient Studies Lab Studies: Microbiology Studies 05/19/18 20:20 MRSA Culture (Admit) - Final Nose MRSA NOT DETECTED 05/19/18 18:00 Blood Culture - Preliminary Blood NO GROWTH AFTER 24 HOURS 05/19/18 18:30 Blood Culture - Preliminary Blood NO GROWTH AFTER 24 HOURS 05/19/18 13:00 C. difficile Antigen & Toxins A,B - Final Stool Lab Studies 05/21/18 05/21/18 Range/Units 06:30 04:30 WBC 11.8 H D (4.5-11.0) 10^3/uL RBC 3.99 (3.5-6.1) 10^6/uL Hgb 10.8 L (12.0-16.0) g/dL Hct 34.5 L (36.0-48.0) % MCV 86.5 (80.0-105.0) fl MCH 27.1 (25.0-35.0) pg MCHC 31.3 (31.0-37.0) g/dl RDW 15.4 H (11.5-14.5) % Plt Count 187 (120.0-450.0) 10^3/uL MPV 10.1 (7.0-11.0) fl Neut % (Auto) 88.3 H (50.0-68.0) % Lymph % (Auto) 8.5 L (22.0-35.0) % [place] % (Auto) 1.6 (1.0-6.0) % Eos % (Auto) 1.5 (1.5-5.0) % Baso % (Auto) 0.1 (0.0-3.0) % Lymph # (Auto) 1.0 L (1.2-3.4) [place] # (Auto) 0.2 (0.1-0.6) Eos # (Auto) 0.2 (0.0-0.7) Baso # (Auto) 0.01 (0.0-2.0) K/mm3 Absolute Neuts (auto) 10.40 H (1.4-6.5) Sodium 140 (132-148) mmol/L Potassium 3.5 L (3.6-5.0) mmol/L Chloride 105 (98-107) mmol/L Carbon Dioxide 29 (21-33) mmol/L Anion Gap 9 L (10-20) BUN 11 (7-21) mg/dL Creatinine 0.9 (0.7-1.2) mg/dl Est GFR ( Amer) > 60 Est GFR (Non-Af Amer) > 60 Random Glucose 129 H (70-110) mg/dL Calcium 8.2 L (8.4-10.5) mg/dL Phosphorus 2.5 (2.5-4.5) mg/dL Magnesium 2.0 (1.7-2.2) mg/dL Total Bilirubin 0.3 (0.2-1.3) mg/dL AST 27 (14-36) U/L ALT 22 (7-56) U/L Alkaline Phosphatase 71 (38-126) U/L Total Protein 5.7 L (5.8-8.3) g/dL Albumin 2.6 L (3.0-4.8) g/dL Globulin 3.1 gm/dL Albumin/Globulin Ratio 0.8 L (1.1-1.8) Laboratory Results - last 24 hr 05/21/18 05/21/18 04:30 06:30 WBC 11.8 H D RBC 3.99 Hgb 10.8 L Hct 34.5 L MCV 86.5 MCH 27.1 MCHC 31.3 RDW 15.4 H Plt Count 187 MPV 10.1 Neut % (Auto) 88.3 H Lymph % (Auto) 8.5 L [place] % (Auto) 1.6 Eos % (Auto) 1.5 Baso % (Auto) 0.1 Lymph # (Auto) 1.0 L [place] # (Auto) 0.2 Eos # (Auto) 0.2 Baso # (Auto) 0.01 Absolute Neuts (auto) 10.40 H Sodium 140 Potassium 3.5 L Chloride 105 Carbon Dioxide 29 Anion Gap 9 L BUN 11 Creatinine 0.9 Est GFR ( Amer) > 60 Est GFR (Non-Af Amer) > 60 Random Glucose 129 H Calcium 8.2 L Phosphorus 2.5 Magnesium 2.0 Total Bilirubin 0.3 AST 27 ALT 22 Alkaline Phosphatase 71 Total Protein 5.7 L Albumin 2.6 L Globulin 3.1 Albumin/Globulin Ratio 0.8 L Radiology Impressions: Radiology Impressions Chest X-Ray 05/19/18 18:13 IMPRESSION: Suspect right lower lobe pneumonia and small right pleural effusion. Follow-up after medical management is recommended to ensure complete resolution. The final report is tagged to the PA review folder. Critical Care Progress Note - Nutrition Nutrition: Nutrition Category Date Time Status Liquid Diet [DIET] Diets 05/21/18 Breakfast Ordered Attending/Attestation - Attestation I have personally seen and examined this patient.: Yes I have fully participated in the care of the patient.: Yes I have reviewed all pertinent clinical information: Yes Notes (Text): 05/21/18 12:56 The patient was seen and examined at the bedside. Patient care was discussed with resident Medical records, lab studies, and imaging were reviewed and management issues were discussed and formulated. Agree with above treatment plans as outlined in 's note with addition of the following: Sigmoid colon perforation \ HTN \ Ulcerative Colitis \ COPD \ ANNY -hemodynamic monitoring to maintain MAP>65 -restart anti-HTN meds with parameters -o2 supplementation to maintain Spo2 >90 Pao2>60; comfortable on NC at this time -continue nebs and Incentive spirometry -continue broad spectrum Abx as per ID team and f\u cultures -f\u Bun\Cr and U\o; monitor and replace e-lites -advance diet as per surgical team; aspiration precautions -PT\OT for OOB -DVT prophylaxis CCM time 30mins
--- NOTE | 2018-05-21 10:58 | PN ---
DATE: 05/21/2018 SUBJECTIVE: The patient is lying in bed in ICU. She is still experiencing some expected postop abdominal pain. She denies any nausea or vomiting. Her NG tube is out. She was found to have C. difficile toxin positivity. She was also found to have right lower lobe pneumonia with effusion. She is also experiencing some mild urinary retention. PHYSICAL EXAMINATION: VITAL SIGNS: Reveal she is afebrile, heart rate of 116, blood pressure 144/70. HEENT: Reveal sclerae to be white. Conjunctivae pink. NECK: Supple. CHEST: Reveal scattered rhonchi. HEART: Exam reveals mild tachycardia. ABDOMEN: Soft. She has a dressing in her lower abdomen over the surgical site. She has a left lower quadrant colostomy producing serosanguineous fluid. She has a Arnaud drain in the right lower quadrant with scant serosanguineous fluid. EXTREMITIES: Show no edema. LABORATORY DATA: Reveal white blood cell count 11.8, hemoglobin 10.8. Chemistries reveal potassium of 3.5. AST, ALT, alk phos were all normal. Albumin is 2.6. IMPRESSION: A 57-year-old female who developed sigmoid perforation during a colonoscopy, status post sigmoid resection and Aric's procedure with Clostridium difficile toxin positivity and hospital-acquired pneumonia. RECOMMENDATIONS: 1. Advance diet as per surgical team. 2. Continue broad-spectrum antibiotics. 3. Continue Asacol HD 100 mg three times a day. 4. Continue vancomycin 125 mg four times a day. Derek Rowland MD MTDD
[2018-05-21] MEDS: Vancomycin 25 MG/ML PO SCH ×4 (11:11→23:42)
[2018-05-21] MEDS: Mesalamine 800 mg DR Tab PO SCH ×3 (12:18→17:36)
[2018-05-21] MEDS: oxyCODONE 5 mg Immediate Release Tab PO PRN ×2 (12:21→18:05)
--- NOTE | 2018-05-21 13:43 | CP.PCM.PCO ---
Physician Communication Note - Physician Communication Note Physician Communication Note: Pt. seen, on clear liquids,On Dilaudid [employer],CDiff pos, on PO Vanco,HR 127
--- NOTE | 2018-05-21 13:50 | CP.PCM.PN ---
Subjective - Date & Time of Evaluation Date of Evaluation: 05/21/18 Time of Evaluation: 07:00 - Subjective Subjective: GENERAL SURGERY PROGRESS NOTE FOR DR. CROCKER Patient seen and examined at bedside in ICU. She was on dilaudid [employer] earlier this morning which was DCed and she was switched to PO pain medication. Patient states that she has abdominal pain but that it is controlled. She was given CLD for breakfast but did not eat any because she states she doesn't have an appetite. She denies fever, chills, nausea or vomiting. Objective - Vital Signs/Intake and Output Vital Signs (last 24 hours): Temp Pulse Resp BP Pulse Ox 99.6 F 128 H 16 152/93 H 99 05/21/18 04:00 05/21/18 09:57 05/21/18 07:30 05/21/18 09:57 05/21/18 07:30 Intake and Output: 05/21/18 05/21/18 06:59 18:59 Intake Total 1950 Output Total 575 Balance 1375 - Medications Medications: Current Medications Acetaminophen (Tylenol 325mg Tab) 650 mg PO Q4H PRN PRN Reason: Pain, Mild (1-3) Albuterol/Ipratropium (Duoneb 3 Mg/0.5 Mg (3 Ml) Ud) 3 ml IH [id number] [facility] Last Admin: 05/21/18 13:33 Dose: 3 ml Alprazolam (Xanax) 0.5 mg PO BID [facility]; Protocol Last Admin: 05/21/18 10:00 Dose: 0.5 mg Arformoterol Tartrate (Brovana) 15 mcg IH [id number] [facility] Last Admin: 05/21/18 07:13 Dose: 15 mcg Budesonide (Pulmicort Respules) 0.5 mg IH [id number] [facility] Last Admin: 05/21/18 07:13 Dose: 0.5 mg Heparin Sodium (Porcine) (Heparin) 5,000 units SC Q8 MOISÉS; Protocol Last Admin: 05/21/18 13:08 Dose: 5,000 units Piperacillin Sod/Tazobactam Sod (Zosyn 3.375 In Ns 100ml) 100 mls @ 25 mls/hr IVPB Q8 MOISÉS; Protocol Stop: 05/26/18 22:01 Last Admin: 05/21/18 13:08 Dose: 25 mls/hr Potassium Chloride 20 meq/ (Dextrose/Sodium Chloride) 1,010 mls @ 135 mls/hr IV .Q7H29M [facility] Last Admin: 05/21/18 11:12 Dose: 135 mls/hr Lisinopril (Zestril) 40 mg PO DAILY [facility] Last Admin: 05/21/18 09:57 Dose: 40 mg Lorazepam (Ativan) 0.5 mg IVP Q6H PRN; Protocol PRN Reason: Anxiety Last Admin: 05/21/18 01:15 Dose: 0.5 mg Mesalamine (Asacol Hd 800mg) 800 mg PO TID [facility] Last Admin: 05/21/18 13:10 Dose: 800 mg Metoclopramide HCl (Reglan) 10 mg IV ONCE PRN PRN Reason: Nausea/Vomiting Metoprolol Tartrate (Lopressor) 50 mg PO BID [facility] Last Admin: 05/21/18 09:57 Dose: 50 mg Ondansetron HCl (Zofran Inj) 4 mg IVP Q6H PRN PRN Reason: Nausea/Vomiting Oxycodone HCl (Oxycodone Immediate Release Tab) 5 mg PO Q6H PRN PRN Reason: Pain, severe (8-10) Last Admin: 05/21/18 12:21 Dose: 5 mg Pregabalin (Lyrica) 150 mg PO TID [facility] Last Admin: 05/21/18 13:08 Dose: 150 mg Tramadol HCl (Ultram) 50 mg PO TID PRN PRN Reason: Pain, moderate (4-7) Last Admin: 05/21/18 08:19 Dose: 50 mg Vancomycin HCl (Vancocin 25 Mg/Ml (Oral Use)) 125 mg PO QID [facility]; Protocol Stop: 05/31/18 10:01 Last Admin: 05/21/18 13:09 Dose: 125 mg - Labs Labs: 05/21/18 04:30 05/21/18 06:30 PT 11.0 SECONDS (9.4-12.5) 05/19/18 12:30 INR 0.97 05/19/18 12:30 - Constitutional Appears: Non-toxic, No Acute Distress - Head Exam Head Exam: ATRAUMATIC, NORMAL INSPECTION - Eye Exam Eye Exam: EOMI - Respiratory Exam Respiratory Exam: NORMAL BREATHING PATTERN. absent: Respiratory Distress - Cardiovascular Exam Cardiovascular Exam: Tachycardia, +S1, +S2 - GI/Abdominal Exam GI & Abdominal Exam: Soft, Tenderness (maxim-incisional and maxim-colostomy tenderness). absent: Distended, Firm, Guarding, Rigid, Rebound Additional comments: Dressings removed- torrey in place Arnaud drain in place with 30cc serosanguinous drainage over past 24 hours. Colostomy bag with small amount of serosanguinous drainage. Ostomy pink and patent. No gas or stool yet. - Neurological Exam Neurological Exam: Alert, Awake, Oriented x3 - Psychiatric Exam Psychiatric exam: Anxious - Skin Skin Exam: Dry, Normal Color, Warm Assessment and Plan - Assessment and Plan (Free Text) Assessment: 57yo F with rectosigmoid perforation s/p colostomy who is now POD#2 s/p Aric's procedure - Continue IVF with D5 1/2 + 20K - Continue DVT PPx w/ heparin - Continue broad spectrum antibiotics for perforation and continue PO Vanco for C diff - Started on CLD this AM - Strongly encouraged OOB and ambulation (PT following) - Strongly encouraged IS use - Clear for transfer out of ICU from surgical standpoint - Will continue to monitor for bowel function - Discussed plan with Dr. Weston Gonzales PGY-4
--- NOTE | 2018-05-21 14:14 | CP.PCM.PN ---
<Rj Woods - Last Filed: 05/21/18 14:19> Subjective - Date & Time of Evaluation Date of Evaluation: 05/21/18 Time of Evaluation: 08:10 - Subjective Subjective: Rj Woods D.O. PGY-3, Internal Medicine Resident, Infectious Disease Progress Note 57-year-old female with a past medical history significant for hypertension, hyperlipidemia, ulcerative colitis, fibromyalgia, COPD, morbid obesity, and ne uropathy who presented for colonoscopy complicated by rectosigmoid perforation. Infectious disease consultation was requested. Patient was seen and examined at bedside. States belly feeling better. Wants to try and eat. Objective - Vital Signs/Intake and Output Vital Signs (last 24 hours): Temp Pulse Resp BP Pulse Ox 99.6 F 128 H 16 152/93 H 99 05/21/18 04:00 05/21/18 09:57 05/21/18 07:30 05/21/18 09:57 05/21/18 07:30 Intake and Output: 05/21/18 05/21/18 06:59 18:59 Intake Total 1950 Output Total 575 Balance 1375 - Medications Medications: Current Medications Acetaminophen (Tylenol 325mg Tab) 650 mg PO Q4H PRN PRN Reason: Pain, Mild (1-3) Albuterol/Ipratropium (Duoneb 3 Mg/0.5 Mg (3 Ml) Ud) 3 ml IH [id number] [facility] Last Admin: 05/21/18 13:33 Dose: 3 ml Alprazolam (Xanax) 0.5 mg PO BID [facility]; Protocol Last Admin: 05/21/18 10:00 Dose: 0.5 mg Arformoterol Tartrate (Brovana) 15 mcg [facility] [id number] [facility] Last Admin: 05/21/18 07:13 Dose: 15 mcg Budesonide (Pulmicort Respules) 0.5 mg IH [id number] [facility] Last Admin: 05/21/18 07:13 Dose: 0.5 mg Heparin Sodium (Porcine) (Heparin) 5,000 units SC Q8 [facility]; Protocol Last Admin: 05/21/18 13:08 Dose: 5,000 units Piperacillin Sod/Tazobactam Sod (Zosyn 3.375 In Ns 100ml) 100 mls @ 25 mls/hr IVPB Q8 [facility]; Protocol Stop: 05/26/18 22:01 Last Admin: 05/21/18 13:08 Dose: 25 mls/hr Potassium Chloride 20 meq/ (Dextrose/Sodium Chloride) 1,010 mls @ 135 mls/hr IV .Q7H29M [facility] Last Admin: 05/21/18 11:12 Dose: 135 mls/hr Lisinopril (Zestril) 40 mg PO DAILY [facility] Last Admin: 05/21/18 09:57 Dose: 40 mg Lorazepam (Ativan) 0.5 mg IVP Q6H PRN; Protocol PRN Reason: Anxiety Last Admin: 05/21/18 01:15 Dose: 0.5 mg Mesalamine (Asacol Hd 800mg) 800 mg PO TID [facility] Last Admin: 05/21/18 13:10 Dose: 800 mg Metoclopramide HCl (Reglan) 10 mg IV ONCE PRN PRN Reason: Nausea/Vomiting Metoprolol Tartrate (Lopressor) 50 mg PO BID [facility] Last Admin: 05/21/18 09:57 Dose: 50 mg Ondansetron HCl (Zofran Inj) 4 mg IVP Q6H PRN PRN Reason: Nausea/Vomiting Oxycodone HCl (Oxycodone Immediate Release Tab) 5 mg PO Q6H PRN PRN Reason: Pain, severe (8-10) Last Admin: 05/21/18 12:21 Dose: 5 mg Pregabalin (Lyrica) 150 mg PO TID [facility] Last Admin: 05/21/18 13:08 Dose: 150 mg Tramadol HCl (Ultram) 50 mg PO TID PRN PRN Reason: Pain, moderate (4-7) Last Admin: 05/21/18 08:19 Dose: 50 mg Vancomycin HCl (Vancocin 25 Mg/Ml (Oral Use)) 125 mg PO QID [facility]; Protocol Stop: 05/31/18 10:01 Last Admin: 05/21/18 13:09 Dose: 125 mg - Labs Labs: 05/21/18 04:30 05/21/18 06:30 PT 11.0 SECONDS (9.4-12.5) 05/19/18 12:30 INR 0.97 05/19/18 12:30 .- Constitutional Appears: Non-toxic, No Acute Distress - Head Exam Head Exam: ATRAUMATIC, NORMOCEPHALIC - Eye Exam Eye Exam: EOMI. absent: Scleral icterus - ENT Exam ENT Exam: Mucous Membranes Moist, Normal Oropharynx - Neck Exam Neck exam: Positive for: Normal Inspection - Respiratory Exam Respiratory Exam: Clear to Auscultation Bilateral. absent: Rhonchi, Wheezes - Cardiovascular Exam Cardiovascular Exam: RRR, +S1, +S2 - GI/Abdominal Exam GI & Abdominal Exam: Soft, Tenderness - Extremities Exam Extremities exam: Negative for: pedal edema - Neurological Exam Neurological exam: Alert, Oriented x4 - Skin Skin Exam: Dry, Warm Assessment and Plan - Assessment and Plan (Free Text) Assessment: 57-year-old female with a past medical history significant for hypertension, hyperlipidemia, ulcerative colitis, fibromyalgia, COPD, morbid obesity, and neuropathy who presented for colonoscopy complicated by rectosigmoid perforation. Infectious disease consultation was requested. Plan: Colonic perforation with intraperitoneal free air C. Diff colitis Hypertension Hyperlipidemia Ulcerative colitis COPD Neuropathy Afebrile No leukocytosis BCxs negative 2/2 day 1 Continue Zosyn day 3 Started on vancomycin PO day 1 Surgical notes reviewed and appreciated We will follow with you Patient was seen and examined and case to be discussed with attending physician Thank you for the pleasure participating in the care of this interesting patient <Aki Hooker - Last Filed: 05/21/18 16:28> Objective - Vital Signs/Intake and Output Vital Signs (last 24 hours): Temp Pulse Resp BP Pulse Ox 99.6 F 116 H 22 173/88 H 94 L 05/21/18 04:00 05/21/18 14:30 05/21/18 14:30 05/21/18 14:27 05/21/18 14:30 Intake and Output: 05/21/18 05/21/18 06:59 18:59 Intake Total 1950 Output Total 575 Balance 1375 - Medications Medications: Current Medications Acetaminophen (Tylenol 325mg Tab) 650 mg PO Q4H PRN PRN Reason: Pain, Mild (1-3) Albuterol/Ipratropium (Duoneb 3 Mg/0.5 Mg (3 Ml) Ud) 3 ml IH [id number] [facility] Last Admin: 05/21/18 13:33 Dose: 3 ml Alprazolam (Xanax) 0.5 mg PO BID [facility]; Protocol Last Admin: 05/21/18 10:00 Dose: 0.5 mg Arformoterol Tartrate (Brovana) 15 mcg IH [id number] [facility] Last Admin: 05/21/18 07:13 Dose: 15 mcg Budesonide (Pulmicort Respules) 0.5 mg IH [id number] [facility] Last Admin: 05/21/18 07:13 Dose: 0.5 mg Heparin Sodium (Porcine) (Heparin) 5,000 units SC Q8 [facility]; Protocol Last Admin: 05/21/18 13:08 Dose: 5,000 units Piperacillin Sod/Tazobactam Sod (Zosyn 3.375 In Ns 100ml) 100 mls @ 25 mls/hr IVPB Q8 [facility]; Protocol Stop: 05/26/18 22:01 Last Admin: 05/21/18 13:08 Dose: 25 mls/hr Potassium Chloride 20 meq/ (Dextrose/Sodium Chloride) 1,010 mls @ 135 mls/hr IV .Q7H29M [facility] Last Admin: 05/21/18 11:12 Dose: 135 mls/hr Lisinopril (Zestril) 40 mg PO DAILY [facility] Last Admin: 05/21/18 09:57 Dose: 40 mg Lorazepam (Ativan) 0.5 mg IVP Q6H PRN; Protocol PRN Reason: Anxiety Last Admin: 05/21/18 01:15 Dose: 0.5 mg Mesalamine (Asacol Hd 800mg) 800 mg PO TID [facility] Last Admin: 05/21/18 13:10 Dose: 800 mg Metoclopramide HCl (Reglan) 10 mg IV ONCE PRN PRN Reason: Nausea/Vomiting Metoprolol Tartrate (Lopressor) 50 mg PO BID [facility] Last Admin: 05/21/18 09:57 Dose: 50 mg Ondansetron HCl (Zofran Inj) 4 mg IVP Q6H PRN PRN Reason: Nausea/Vomiting Last Admin: 05/21/18 15:51 Dose: 4 mg Oxycodone HCl (Oxycodone Immediate Release Tab) 5 mg PO Q6H PRN PRN Reason: Pain, severe (8-10) Last Admin: 05/21/18 12:21 Dose: 5 mg Pregabalin (Lyrica) 150 mg PO TID [facility] Last Admin: 05/21/18 13:08 Dose: 150 mg Tramadol HCl (Ultram) 50 mg PO TID PRN PRN Reason: Pain, moderate (4-7) Last Admin: 05/21/18 15:50 Dose: 50 mg Vancomycin HCl (Vancocin 25 Mg/Ml (Oral Use)) 250 mg PO QID [facility]; Protocol - Labs Labs: 05/21/18 04:30 05/21/18 06:30 PT 11.0 SECONDS (9.4-12.5) 05/19/18 12:30 INR 0.97 05/19/18 12:30 Attending/Attestation - Attestation I have personally seen and examined this patient.: Yes I have fully participated in the care of the patient.: Yes I have reviewed all pertinent clinical information, including history, physical exam and plan: Yes
[2018-05-22] MEDS: metroNIDAZOLE IV 500 mg/100 ml 500 MG/100 ML BAG IVPB SCH ×4 (01:02→22:27)
[2018-05-22] MEDS ORDERED: Benzocaine/Menthol (Cepacol) Lozenge MT PRN (01:12)
--- NOTE | 2018-05-22 01:39 | HP ---
DATE OF EXAM: 05/19/2018 CHIEF COMPLAINT: Perforated viscus. HISTORY OF PRESENT ILLNESS: This is a 57-year-old woman with a history of ulcerative colitis, who was undergoing colonoscopy and developed perforation of colon followed by abdominal pain, free air as seen on CT scan. She was started on antibiotics immediately, transferred to Intensive Care Unit, taken to the OR with Dr. Ontiveros and the surgical team for surgical repair and temporary colostomy and she is now back in ICU. PAST MEDICAL HISTORY: Significant for hypertension, ulcerative colitis as mentioned above, asthma/COPD, fibromyalgia, and neuropathy of unknown etiology. She is status post partial thyroidectomy and right ear surgery. CURRENT MEDICATIONS: Include levothyroxine, Lialda, metoprolol, lisinopril, Proventil inhaler, albuterol via nebulizer, Symbicort, fluticasone nasal spray, prednisone, gabapentin, and oxycodone. ALLERGIES; SHE IS BELIEVED TO BE ALLERGIC TO SULFA DRUGS. REVIEW OF SYSTEMS: Not obtainable as the patient is a recent postop in ICU. PHYSICAL EXAMINATION: GENERAL: The patient is seen this evening in ICU. She is awake with NG tube in place. HEAD AND NECK: Unremarkable. LUNGS: Shows good aeration right and left. HEART: Regular, not tachycardic. ABDOMEN: Dressed postop with no bowel sounds present. Colostomy on the left side. EXTREMITIES: SCDs are in place. No significant edema noted. IMPRESSION: 1. Perforated viscus. 2. Ulcerative Colitis. 3. Hypertension. 4. Chronic obstructive pulmonary disease. 5. Fibromyalgia. 6. Chronic pain syndrome. 7. Chronic opiate use. PLAN: We will follow with surgical team and GI. Continue IV antibiotics, fluids, condition explained to the patient. She seems to understand well. Quincy Langley MD [email or web address]
[2018-05-22] MEDS: Albuterol-Ipratrop 3 mg / 0.5 (3 ml) UD IH SCH ×4 (02:00→20:50)
[2018-05-22] MEDS: Piperacillin/Tazobact 3.375 gm 100 ML IVPB SCH ×3 (06:20→22:26)
[2018-05-22] MEDS: HYDROmorphone 1 mg/ml ISec IVP PRN ×3 (06:49→22:48)
[2018-05-22 07:03] LABS: BASO # 0.01 K/mm3 (0.0-2.0); BASO % 0.1 % (0.0-3.0); EOS # 0.1 (0.0-0.7); EOS % 0.7 % (1.5-5.0); LYMPH # 0.7 (1.2-3.4); LYMPH % 5.7 % (22.0-35.0); MEAN CORPUSCULAR HEMOGLOBIN 27.2 pg (25.0-35.0); MEAN CORPUSCULAR HGB CONC 32.4 g/dl (31.0-37.0); MONO # 0.3 (0.1-0.6); MONO % 2.6 % (1.0-6.0); PLATELET COUNT 196 10^3/uL (120.0-450.0); RBC 3.68 10^6/uL (3.5-6.1); RED CELL DISTRIBUTION WIDTH 14.7 % (11.5-14.5); WHITE BLOOD COUNT 12.5 10^3/uL (4.5-11.0)
[2018-05-22 07:07] LABS: ALBUMIN 2.8 g/dL (3.0-4.8); ALT/SGPT 19 U/L (7-56); AST/SGOT 21 U/L (14-36); BLOOD UREA NITROGEN 6 mg/dL (7-21); CALCIUM 8.3 mg/dL (8.4-10.5); GFR NON-AFRICAN AMERICAN > 60
[2018-05-22] MEDS: Budesonide 0.5 mg/2 ml Inhal Susp UD IH SCH ×2 (07:45→20:50)
[2018-05-22] MEDS: Arformoterol 15 mcg/2 ml Inh Sol IH SCH ×2 (07:45→20:50)
[2018-05-22] MEDS ORDERED: Potassium Phosphate 3 mmol/ml Inj IV ONE (08:23)
[2018-05-22] MEDS ORDERED: Potassium Phosphate 30 MMOLE in Sodium Chloride 0.9% 250 ML IVPB ONE (08:30)
[2018-05-22 08:36] LABS: LYMPHOCYTE 6 % (22.0-35.0); MONOCYTE 1 % (1.0-6.0); NEUTROPHIL 93 % (50.0-70.0); PLATELET ESTIMATE NORMAL (NORMAL)
--- NOTE | 2018-05-22 08:45 | CP.PCM.PN ---
Subjective - Date & Time of Evaluation Date of Evaluation: 05/22/18 Time of Evaluation: 08:40 - Subjective Subjective: Surgery Progress Note for Dr. Ontiveros 57F seen and evaluated at bedside this morning. Patient had nausea and bilious vomit overnight, NGT was inserted with 400cc output initially and 1000cc bilious output overnight. Patient NPO. Mild abdominal pain around incision and ostomy site. Patient is using IS. Patient has not tried ambulating. Patient is voiding. No BM or passing flatus. Denies f/c, SOB, CP, or urinary symptoms. Objective - Vital Signs/Intake and Output Vital Signs (last 24 hours): Temp Pulse Resp BP Pulse Ox 98.8 F 105 H 20 157/85 H 97 05/22/18 06:00 05/22/18 06:00 05/22/18 06:00 05/22/18 06:00 05/22/18 06:00 Intake and Output: 05/22/18 05/22/18 06:59 18:59 Intake Total 0 Balance 0 - Medications Medications: Current Medications Acetaminophen (Tylenol 325mg Tab) 650 mg PO Q4H PRN PRN Reason: Pain, Mild (1-3) Albuterol/Ipratropium (Duoneb 3 Mg/0.5 Mg (3 Ml) Ud) 3 ml IH [id number] [facility] Last Admin: 05/22/18 07:45 Dose: 3 ml Alprazolam (Xanax) 0.5 mg PO BID [facility]; Protocol Last Admin: 05/21/18 17:38 Dose: 0.5 mg Arformoterol Tartrate (Brovana) 15 mcg IH [id number] [facility] Last Admin: 05/22/18 07:45 Dose: 15 mcg Benzocaine/Menthol (Cepacol Sore Throat) 1 milagros MT Q2H PRN PRN Reason: Sore Throat Budesonide (Pulmicort Respules) 0.5 mg IH [id number] [facility] Last Admin: 05/22/18 07:45 Dose: 0.5 mg Heparin Sodium (Porcine) (Heparin) 5,000 units SC Q8 [facility]; Protocol Last Admin: 05/22/18 06:21 Dose: 5,000 units Hydromorphone HCl (Dilaudid) 1 mg IVP Q6H PRN PRN Reason: Pain, severe (8-10) Last Admin: 05/22/18 06:49 Dose: 1 mg Piperacillin Sod/Tazobactam Sod (Zosyn 3.375 In Ns 100ml) 100 mls @ 25 mls/hr IVPB Q8 [facility]; Protocol Stop: 05/26/18 22:01 Last Admin: 05/22/18 06:20 Dose: 25 mls/hr Potassium Chloride 20 meq/ (Dextrose/Sodium Chloride) 1,010 mls @ 135 mls/hr IV .Q7H29M [facility] Last Admin: 05/21/18 11:12 Dose: 135 mls/hr Metronidazole (Flagyl) 500 mg in 100 mls @ 100 mls/hr IVPB Q8 [facility]; Protocol Last Admin: 05/22/18 06:20 Dose: 100 mls/hr Potassium Phosphate 30 mmole/ (Sodium Chloride) 260 mls @ 43.333 mls/hr IVPB ONCE ONE Stop: 05/22/18 14:29 Lisinopril (Zestril) 40 mg PO DAILY [facility] Last Admin: 05/21/18 09:57 Dose: 40 mg Lorazepam (Ativan) 0.5 mg IVP Q6H PRN; Protocol PRN Reason: Anxiety Last Admin: 05/21/18 01:15 Dose: 0.5 mg Mesalamine (Asacol Hd 800mg) 800 mg PO TID [facility] Last Admin: 05/21/18 17:36 Dose: 800 mg Metoprolol Tartrate (Lopressor) 50 mg PO BID [facility] Last Admin: 05/21/18 17:36 Dose: 50 mg Ondansetron HCl (Zofran Inj) 4 mg IVP Q6H PRN PRN Reason: Nausea/Vomiting Last Admin: 05/22/18 01:40 Dose: 4 mg Pregabalin (Lyrica) 150 mg PO TID [facility] Last Admin: 05/21/18 18:23 Dose: Not Given Vancomycin HCl (Vancocin 25 Mg/Ml (Oral Use)) 250 mg PO QID [facility]; Protocol Last Admin: 05/21/18 23:42 Dose: Not Given - Labs Labs: 05/22/18 06:00 05/22/18 06:00 PT 11.0 SECONDS (9.4-12.5) 05/19/18 12:30 INR 0.97 05/19/18 12:30 - Constitutional Appears: Well, Non-toxic, No Acute Distress - Head Exam Head Exam: ATRAUMATIC, NORMAL INSPECTION, NORMOCEPHALIC - Eye Exam Eye Exam: EOMI - ENT Exam ENT Exam: Mucous Membranes Dry - Respiratory Exam Respiratory Exam: Clear to Ausculation Bilateral, NORMAL BREATHING PATTERN. absent: Wheezes, Respiratory Distress - Cardiovascular Exam Cardiovascular Exam: REGULAR RHYTHM, +S1, +S2. absent: Murmur - GI/Abdominal Exam GI & Abdominal Exam: Distended, Soft, Tenderness, Normal Bowel Sounds Additional comments: Arnaud drain with serosanguinous output overnight Midline abdominal incision c/d with torrey intact Ostomy pink and patent, no output noted - Neurological Exam Neurological Exam: Alert, Awake, Oriented x3 - Psychiatric Exam Psychiatric exam: Normal Affect, Normal Mood - Skin Skin Exam: Dry, Intact, Normal Color, Warm Assessment and Plan - Assessment and Plan (Free Text) Assessment: 57F s/p laparoscopic extended left hemicolectomy with primary anastomosis POD3 Plan: NGT reinserted 2/2 n/v - low, intermittent suction Continue to monitor NGT output Serial abdominal exams NPO IVF - D5 1/2NS w 20K @ 135 Cdff positive - switched to IV flagyl until patient can tolerate PO Vancomycin Continue to monitor for return of bowel function Encourage IS use Encourage ambulation and OOBTC D/w Dr. Weston Trujillo PGY1
[2018-05-22] MEDS: Vancomycin 25 MG/ML PO SCH ×4 (09:10→23:04)
[2018-05-22] MEDS: Mesalamine 800 mg DR Tab PO SCH ×3 (09:13→17:52)
--- NOTE | 2018-05-22 09:13 | RAD ---
HISTORY: NGT placement COMPARISON: Chest x-ray performed 05/19/18 TECHNIQUE: Chest, one view. FINDINGS: Nasogastric tube extends to the expected location of the stomach. LUNGS: Hypoinflation. No focal consolidation. Please note that chest x-ray has limited sensitivity for the detection of pulmonary masses. PLEURA: No significant pleural effusion identified. No definite pneumothorax . CARDIOVASCULAR: Heart size appears top normal. No significant atherosclerotic calcification present. OSSEOUS STRUCTURES: No acute osseous abnormality identified. VISUALIZED UPPER ABDOMEN: Unremarkable. OTHER FINDINGS: None. IMPRESSION: Nasogastric tube extends to the expected location of the stomach. Hypoinflation.
--- NOTE | 2018-05-22 11:48 | CP.PCM.PN ---
Subjective - Date & Time of Evaluation Date of Evaluation: 05/22/18 Time of Evaluation: 08:50 - Subjective Subjective: Patient still having some nausea and abdominal pain, had low grade fever overnight. Objective - Vital Signs/Intake and Output Vital Signs (last 24 hours): Temp Pulse Resp BP Pulse Ox 100.8 F H 104 H 20 147/86 98 05/22/18 00:00 05/22/18 00:00 05/22/18 02:17 05/22/18 00:00 05/21/18 17:03 Intake and Output: 05/22/18 05/22/18 06:59 18:59 Intake Total 0 Balance 0 - Medications Medications: Current Medications Acetaminophen (Tylenol 325mg Tab) 650 mg PO Q4H PRN PRN Reason: Pain, Mild (1-3) Albuterol/Ipratropium (Duoneb 3 Mg/0.5 Mg (3 Ml) Ud) 3 ml IH [id number] [facility] Last Admin: 05/22/18 02:00 Dose: Not Given Alprazolam (Xanax) 0.5 mg PO BID [facility]; Protocol Last Admin: 05/21/18 17:38 Dose: 0.5 mg Arformoterol Tartrate (Brovana) 15 mcg IH [id number] [facility] Last Admin: 05/21/18 21:09 Dose: Not Given Benzocaine/Menthol (Cepacol Sore Throat) 1 milagros MT Q2H PRN PRN Reason: Sore Throat Budesonide (Pulmicort Respules) 0.5 mg IH [id number] [facility] Last Admin: 05/21/18 21:10 Dose: Not Given Heparin Sodium (Porcine) (Heparin) 5,000 units SC Q8 [facility]; Protocol Last Admin: 05/22/18 06:21 Dose: 5,000 units Hydromorphone HCl (Dilaudid) 1 mg IVP Q6H PRN PRN Reason: Pain, severe (8-10) Last Admin: 05/22/18 06:49 Dose: 1 mg Piperacillin Sod/Tazobactam Sod (Zosyn 3.375 In Ns 100ml) 100 mls @ 25 mls/hr IVPB Q8 [facility]; Protocol Stop: 05/26/18 22:01 Last Admin: 05/22/18 06:20 Dose: 25 mls/hr Potassium Chloride 20 meq/ (Dextrose/Sodium Chloride) 1,010 mls @ 135 mls/hr IV .Q7H29M [facility] Last Admin: 05/21/18 11:12 Dose: 135 mls/hr Metronidazole (Flagyl) 500 mg in 100 mls @ 100 mls/hr IVPB Q8 [facility]; Protocol Last Admin: 05/22/18 06:20 Dose: 100 mls/hr Lisinopril (Zestril) 40 mg PO DAILY [facility] Last Admin: 05/21/18 09:57 Dose: 40 mg Lorazepam (Ativan) 0.5 mg IVP Q6H PRN; Protocol PRN Reason: Anxiety Last Admin: 05/21/18 01:15 Dose: 0.5 mg Mesalamine (Asacol Hd 800mg) 800 mg PO TID [facility] Last Admin: 05/21/18 17:36 Dose: 800 mg Metoprolol Tartrate (Lopressor) 50 mg PO BID [facility] Last Admin: 05/21/18 17:36 Dose: 50 mg Ondansetron HCl (Zofran Inj) 4 mg IVP Q6H PRN PRN Reason: Nausea/Vomiting Last Admin: 05/22/18 01:40 Dose: 4 mg Pregabalin (Lyrica) 150 mg PO TID [facility] Last Admin: 05/21/18 18:23 Dose: Not Given Vancomycin HCl (Vancocin 25 Mg/Ml (Oral Use)) 250 mg PO QID [facility]; Protocol Last Admin: 05/21/18 23:42 Dose: Not Given - Labs Labs: 05/22/18 06:00 05/22/18 06:00 PT 11.0 SECONDS (9.4-12.5) 05/19/18 12:30 INR 0.97 05/19/18 12:30 - Constitutional Appears: Chronically Ill - Head Exam Head Exam: NORMAL INSPECTION - ENT Exam ENT Exam: Mucous Membranes Moist - Neck Exam Neck Exam: absent: Meningismus - Respiratory Exam Respiratory Exam: Decreased Breath Sounds - Cardiovascular Exam Cardiovascular Exam: +S1, +S2 Assessment and Plan - Assessment and Plan (Free Text) Plan: Assessment Colonic perforation with intraperitoneal free air C. diff. associated diarrhea ulcerative colitis HTN dyslipidemia COPD morbid obesity with BMI 41 Plan continue Zosyn day 4 and PO Vancomycin day 2 follow up further recommendations and plans of GI and Surgery will continue to monitor clinically
--- NOTE | 2018-05-22 13:47 | PN ---
DATE: 05/22/2018 SUBJECTIVE: The patient was transferred out of ICU in to telemetry. She had vomiting last night necessitating reinsertion of an NG tube. She is comfortable this morning. Her postop pain has improved. She denies any fevers or chills. PHYSICAL EXAMINATION: VITAL SIGNS: Reveal temperature of 98.8, blood pressure 157/85 and heart rate 105. HEENT: Reveal sclerae to be white. Conjunctivae pink. NECK: Supple. CHEST: Reveal decreased breath sounds. HEART: Reveals a regular rate and rhythm. ABDOMEN: Soft. She has a left lower quadrant colostomy. Her incision is dry without drainage. She has scant serosanguineous drainage in a Arnaud tube. EXTREMITIES: Showed no edema. She is making urine. LABORATORY DATA: Reveal, white blood cell count 12.5 and hemoglobin 10. Chemistries reveal potassium of 3.0, blood sugar 135, albumin of 2.8 and phosphorous of 1.9. IMPRESSION: 1. A 57-year-old female with longstanding ulcerative colitis who underwent a colonoscopy for flare of ulcerative colitis and developed a perforation in the rectosigmoid junction during the colonoscopy, status post sigmoid resection and Aric's procedure with colostomy. 2. Pseudomembranous colitis. RECOMMENDATIONS: 1. Continue NG tube drainage. 2. We will start PPI for stress ulcer prophylaxis. 3. We will encourage the patient to get out of bed to chair. 4. Follow electrolytes. 5. Continue IV Flagyl for Pseudomembranous colitis. 6. Continue Zosyn. Derek Rowland MD [facility]
--- NOTE | 2018-05-22 14:09 | PN ---
DATE: 05/22/2018 SUBJECTIVE: The patient was seen this Thursday morning in room 264, bed 2 with a sister at the bedside. During our visit, she was seen by Dr. Ontiveros and vice president of product marketing. She is awake, alert, clear. Mental status is at baseline, doing really well. She reports no gas or flatus, very little cramping or grumbling in the belly. PHYSICAL EXAMINATION: HEENT: Conjunctivae pink. Mucous membranes are moist. NG tube had been removed, but is back in place because of nausea and distention. LUNGS: Have good aeration on the right and left. HEART: Regular in the mid to high 90s, not tachycardic. ABDOMEN: Soft, colostomy is in place. I did not hear any bowel sounds. There is minimal postop tenderness pain, no true guarding or rebound. EXTREMITIES: Have SCDs in place. ASSESSMENT AND PLAN: Medications will need to be adjusted for nasogastric tube back in place and Clostridium difficile. Quincy Langley MD
[2018-05-22] MEDS: Potassium Chloride 20 MEQ in Dextrose 5%/0.45% NS 1,000 ML IV SCH (18:59)
--- NOTE | 2018-05-22 19:48 | HP ---
DATE OF EXAM: 05/22/2018 HISTORY OF PRESENT ILLNESS: The patient is a 57-year-old female who was admitted after colonoscopy with Dr. Derek Rowland. The patient had been complaining of increasing pain, was evaluated by Dr. Rowland and outpatient colonoscopy was planned. However, the patient suffered a perforation during the procedure and was therefore admitted. When I saw the patient in the recovery room, I discussed the case with Dr. Quincy Ontiveros. He stated the colon and rectum was so friable that anastomosis could not be performed and therefore, the patient had a colostomy and Aric's pouch procedure performed. PAST MEDICAL HISTORY: The patient is known to have a past medical history positive for ulcerative colitis. She also has a history of COPD, fibromyalgia, hypertension, anxiety, insomnia, and chronic back pain due to spinal stenosis. I first met this patient in 02/2018 for her first office visit. ALLERGIES: SHE IS KNOWN TO BE ALLERGIC TO SULFA. SOCIAL HISTORY: She is a nonalcoholic drinker, smokes less than 10 cigarettes a day. MEDICATIONS: At the time of admission include oxycodone 30 mg four times a day, Percocet 10/325 three times a day, Proventil HFA as needed, DuoNeb nebulizers twice a day, Symbicort 160/4.5 twice a day, Flonase nasal spray at bedtime, Zestril 40 mg once a day, mesalamine 4 g twice a day, metoprolol tartrate 50 mg twice a day, Lyrica 75 mg four times a day, Zocor 20 mg once a day, Spiriva 18 mcg once a day, Lialda 4 tablets daily, and omeprazole 40 mg once a day. PHYSICAL EXAMINATION: GENERAL: As mentioned above when seen in the emergency and the recovery room, the patient was awake, alert and oriented. She was happy to see me. She appeared to be in no great distress at that time. HEAD, EYES, EARS, NOSE AND THROAT: Unremarkable. LUNGS: Clear to auscultation and percussion laterally. HEART: Regular. ABDOMEN: Had postop dressings applied. EXTREMITIES: Free of cyanosis, clubbing or edema. NEUROLOGIC: The patient was awake, alert and oriented with no focal neurological signs. LABORATORY DATA: Laboratory studies shows the white blood cell count to be 6, hemoglobin and hematocrit were 14.6 and 45.3 respectively, and platelet count was 233. PT/INR is 0.97. Her sodium is 141, potassium 3.4, chloride 107, carbon dioxide 25, blood urea nitrogen 16, and creatinine is 0.9. IMPRESSION AND PLAN: The patient is to be admitted into the Intensive Care Unit. She will be followed by surgical team with Dr. Ontiveros as well as her cath lab radiological technologist Dr. Rowland and Infectious Disease protection consultant Dr. Hooker. Kane Langley MD
[2018-05-22] MEDS: Metoprolol 1 mg/ml Inj IVP SCH ×2 (22:28→23:04)
[2018-05-23] MEDS: Albuterol-Ipratrop 3 mg / 0.5 (3 ml) UD IH SCH ×4 (01:23→19:16)
[2018-05-23] MEDS: Potassium Chloride 20 MEQ in Dextrose 5%/0.45% NS 1,000 ML IV SCH ×2 (03:37→12:28)
[2018-05-23] MEDS: Metoprolol 1 mg/ml Inj IVP SCH ×2 (03:38→09:07)
[2018-05-23] MEDS: HYDROmorphone 1 mg/ml ISec IVP PRN ×3 (04:04→20:10)
[2018-05-23] MEDS: metroNIDAZOLE IV 500 mg/100 ml 500 MG/100 ML BAG IVPB SCH ×3 (06:08→21:19)
[2018-05-23] MEDS: Piperacillin/Tazobact 3.375 gm 100 ML IVPB SCH ×3 (07:07→22:12)
[2018-05-23] MEDS: Arformoterol 15 mcg/2 ml Inh Sol IH SCH ×2 (07:34→19:16)
[2018-05-23] MEDS: Budesonide 0.5 mg/2 ml Inhal Susp UD IH SCH ×2 (07:34→19:16)
[2018-05-23 08:01] LABS: BASO # 0.02 K/mm3 (0.0-2.0); BASO % 0.2 % (0.0-3.0); EOS # 0.2 (0.0-0.7); EOS % 2.4 % (1.5-5.0); HEMOGLOBIN 9.5 g/dL (12.0-16.0); LYMPH # 1.3 (1.2-3.4); LYMPH % 13.7 % (22.0-35.0); MEAN CORPUSCULAR HEMOGLOBIN 27.2 pg (25.0-35.0); MEAN CORPUSCULAR HGB CONC 32.4 g/dl (31.0-37.0); MEAN PLATELET VOLUME 10.1 fl (7.0-11.0); MONO # 0.4 (0.1-0.6); MONO % 4.6 % (1.0-6.0); RBC 3.49 10^6/uL (3.5-6.1); WHITE BLOOD COUNT 9.3 10^3/uL (4.5-11.0)
--- NOTE | 2018-05-23 08:34 | CP.PCM.PN ---
Subjective - Date & Time of Evaluation Date of Evaluation: 05/23/18 Time of Evaluation: 08:31 - Subjective Subjective: Surgery Progress Note for Dr. Ontiveros 57F seen and evaluated at bedside this morning. No acute events overnight. Patient worked with PT yesterday and was able to sit up in bed but felt nauseated. Pain is well controlled. Voiding without difficulty. No ostomy function or passing flatus. Denies f/c, n/v/d, SOB, CP, or urinary symptoms. Objective - Vital Signs/Intake and Output Vital Signs (last 24 hours): Temp Pulse Resp BP Pulse Ox 99.9 F H 84 20 134/94 H 97 05/23/18 03:55 05/23/18 04:52 05/23/18 03:55 05/23/18 03:55 05/23/18 04:52 Intake and Output: 05/23/18 05/23/18 06:59 18:59 Intake Total 0 Output Total 900 Balance -900 - Medications Medications: Current Medications Acetaminophen (Tylenol 325mg Tab) 650 mg PO Q4H PRN PRN Reason: Pain, Mild (1-3) Albuterol/Ipratropium (Duoneb 3 Mg/0.5 Mg (3 Ml) Ud) 3 ml IH [id number] [facility] Last Admin: 05/23/18 07:34 Dose: 3 ml Alprazolam (Xanax) 0.5 mg PO BID [facility]; Protocol Last Admin: 05/22/18 18:21 Dose: Not Given Arformoterol Tartrate (Brovana) 15 mcg IH [id number] [facility] Last Admin: 05/23/18 07:34 Dose: 15 mcg Benzocaine/Menthol (Cepacol Sore Throat) 1 milagros MT Q2H PRN PRN Reason: Sore Throat Budesonide (Pulmicort Respules) 0.5 mg IH [id number] [facility] Last Admin: 05/23/18 07:34 Dose: 0.5 mg Heparin Sodium (Porcine) (Heparin) 5,000 units SC Q8 [facility]; Protocol Last Admin: 05/23/18 07:07 Dose: 5,000 units Hydromorphone HCl (Dilaudid) 1 mg IVP Q6H PRN PRN Reason: Pain, severe (8-10) Last Admin: 05/23/18 04:04 Dose: 1 mg Piperacillin Sod/Tazobactam Sod (Zosyn 3.375 In Ns 100ml) 100 mls @ 25 mls/hr IVPB Q8 [facility]; Protocol Stop: 05/26/18 22:01 Last Admin: 05/23/18 07:07 Dose: 25 mls/hr Potassium Chloride 20 meq/ (Dextrose/Sodium Chloride) 1,010 mls @ 135 mls/hr IV .Q7H29M [facility] Last Admin: 05/23/18 03:37 Dose: 135 mls/hr Metronidazole (Flagyl) 500 mg in 100 mls @ 100 mls/hr IVPB Q8 [facility]; Protocol Last Admin: 05/23/18 06:08 Dose: 100 mls/hr Lisinopril (Zestril) 40 mg PO DAILY [facility] Last Admin: 05/22/18 12:12 Dose: Not Given Lorazepam (Ativan) 0.5 mg IVP Q6H PRN; Protocol PRN Reason: Anxiety Last Admin: 05/21/18 01:15 Dose: 0.5 mg Mesalamine (Asacol Hd 800mg) 800 mg PO TID [facility] Last Admin: 05/22/18 17:52 Dose: Not Given Metoclopramide HCl (Reglan) 5 mg IVP ACHS [facility] Last Admin: 05/22/18 21:26 Dose: 5 mg Metoprolol Tartrate (Lopressor) 50 mg PO BID [facility] Last Admin: 05/22/18 18:20 Dose: Not Given Ondansetron HCl (Zofran Inj) 4 mg IVP Q6H PRN PRN Reason: Nausea/Vomiting Last Admin: 05/22/18 01:40 Dose: 4 mg Pantoprazole Sodium (Protonix Inj) 40 mg IVP DAILY [facility] Last Admin: 05/22/18 14:23 Dose: 40 mg Pregabalin (Lyrica) 150 mg PO TID [facility] Last Admin: 05/22/18 18:21 Dose: Not Given Vancomycin HCl (Vancocin 25 Mg/Ml (Oral Use)) 250 mg PO QID [facility]; Protocol Last Admin: 05/22/18 23:04 Dose: Not Given - Labs Labs: 05/23/18 07:00 05/22/18 06:00 PT 11.0 SECONDS (9.4-12.5) 05/19/18 12:30 INR 0.97 05/19/18 12:30 - Constitutional Appears: Well, Non-toxic, No Acute Distress - Head Exam Head Exam: ATRAUMATIC, NORMAL INSPECTION, NORMOCEPHALIC - Eye Exam Eye Exam: EOMI - ENT Exam ENT Exam: Mucous Membranes Moist - Respiratory Exam Respiratory Exam: NORMAL BREATHING PATTERN. absent: Wheezes, Respiratory Distress - Cardiovascular Exam Cardiovascular Exam: REGULAR RHYTHM, +S1, +S2. absent: Murmur - GI/Abdominal Exam GI & Abdominal Exam: Soft, Tenderness, Normal Bowel Sounds. absent: Distended, Guarding, Rebound Additional comments: ostomy pink and patent with mucous, no stool output midline incision c/d with torrey rosalie drain 30cc serosanguinous overnight NGT 300cc bilious overnight - Neurological Exam Neurological Exam: Alert, Awake, Oriented x3 - Psychiatric Exam Psychiatric exam: Normal Affect, Normal Mood - Skin Skin Exam: Dry, Intact, Normal Color, Warm Assessment and Plan - Assessment and Plan (Free Text) Assessment: 57F s/p laparoscopic extended left hemicolectomy with primary anastomosis POD4 Plan: NGT 300cc bilious output overnight Continue to monitor NGT output BENJAMÍN 30cc serosanguinous output overnight Serial abdominal exams NPO IVF - D5 1/2NS w 20K @ 135 Cdff positive - switched to IV flagyl until patient can tolerate PO Vancomycin Continue to monitor for return of bowel function/ostomy function Encourage IS use Encourage ambulation and OOBTC Aggressive PT D/w Dr. Weston Trujillo PGY1
[2018-05-23 08:58] LABS: ALBUMIN 2.8 g/dL (3.0-4.8); ALT/SGPT 20 U/L (7-56); AST/SGOT 22 U/L (14-36); BLOOD UREA NITROGEN 7 mg/dL (7-21); CALCIUM 7.8 mg/dL (8.4-10.5); GFR NON-AFRICAN AMERICAN > 60
--- NOTE | 2018-05-23 10:35 | CP.PCM.PN ---
Subjective - Date & Time of Evaluation Date of Evaluation: 05/23/18 Time of Evaluation: 08:20 - Subjective Subjective: Patient having low grade temperatures, still with abdominal pain, but no diarrhea. Still with NGT. Objective - Vital Signs/Intake and Output Vital Signs (last 24 hours): Temp Pulse Resp BP Pulse Ox 98.8 F 105 H 20 157/85 H 97 05/22/18 06:00 05/22/18 06:00 05/22/18 06:00 05/22/18 06:00 05/22/18 06:00 Intake and Output: 05/22/18 05/22/18 06:59 18:59 Intake Total 0 Balance 0 - Medications Medications: Current Medications Acetaminophen (Tylenol 325mg Tab) 650 mg PO Q4H PRN PRN Reason: Pain, Mild (1-3) Albuterol/Ipratropium (Duoneb 3 Mg/0.5 Mg (3 Ml) Ud) 3 ml IH [id number] [facility] Last Admin: 05/22/18 07:45 Dose: 3 ml Alprazolam (Xanax) 0.5 mg PO BID [facility]; Protocol Last Admin: 05/22/18 09:14 Dose: Not Given Arformoterol Tartrate (Brovana) 15 mcg IH [id number] [facility] Last Admin: 05/22/18 07:45 Dose: 15 mcg Benzocaine/Menthol (Cepacol Sore Throat) 1 milagros MT Q2H PRN PRN Reason: Sore Throat Budesonide (Pulmicort Respules) 0.5 mg IH [id number] [facility] Last Admin: 05/22/18 07:45 Dose: 0.5 mg Heparin Sodium (Porcine) (Heparin) 5,000 units SC Q8 [facility]; Protocol Last Admin: 05/22/18 06:21 Dose: 5,000 units Hydromorphone HCl (Dilaudid) 1 mg IVP Q6H PRN PRN Reason: Pain, severe (8-10) Last Admin: 05/22/18 06:49 Dose: 1 mg Piperacillin Sod/Tazobactam Sod (Zosyn 3.375 In Ns 100ml) 100 mls @ 25 mls/hr IVPB Q8 [facility]; Protocol Stop: 05/26/18 22:01 Last Admin: 05/22/18 06:20 Dose: 25 mls/hr Potassium Chloride 20 meq/ (Dextrose/Sodium Chloride) 1,010 mls @ 135 mls/hr IV .Q7H29M [facility] Last Admin: 05/21/18 11:12 Dose: 135 mls/hr Metronidazole (Flagyl) 500 mg in 100 mls @ 100 mls/hr IVPB Q8 [facility]; Protocol Last Admin: 05/22/18 06:20 Dose: 100 mls/hr Potassium Phosphate 30 mmole/ (Sodium Chloride) 260 mls @ 43.333 mls/hr IVPB ONCE ONE Stop: 05/22/18 14:29 Last Admin: 05/22/18 11:37 Dose: 43.333 mls/hr Lisinopril (Zestril) 40 mg PO DAILY [facility] Last Admin: 05/21/18 09:57 Dose: 40 mg Lorazepam (Ativan) 0.5 mg IVP Q6H PRN; Protocol PRN Reason: Anxiety Last Admin: 05/21/18 01:15 Dose: 0.5 mg Mesalamine (Asacol Hd 800mg) 800 mg PO TID [facility] Last Admin: 05/22/18 09:13 Dose: Not Given Metoprolol Tartrate (Lopressor) 50 mg PO BID [facility] Last Admin: 05/22/18 09:13 Dose: Not Given Ondansetron HCl (Zofran Inj) 4 mg IVP Q6H PRN PRN Reason: Nausea/Vomiting Last Admin: 05/22/18 01:40 Dose: 4 mg Pregabalin (Lyrica) 150 mg PO TID [facility] Last Admin: 05/22/18 09:13 Dose: Not Given Vancomycin HCl (Vancocin 25 Mg/Ml (Oral Use)) 250 mg PO QID [facility]; Protocol Last Admin: 05/22/18 09:10 Dose: Not Given - Labs Labs: 05/22/18 06:00 05/22/18 06:00 PT 11.0 SECONDS (9.4-12.5) 05/19/18 12:30 INR 0.97 05/19/18 12:30 - Constitutional Appears: Chronically Ill - Head Exam Head Exam: NORMAL INSPECTION - ENT Exam Additional comments: NGT in place - Neck Exam Neck Exam: absent: Meningismus - Respiratory Exam Respiratory Exam: Decreased Breath Sounds - Cardiovascular Exam Cardiovascular Exam: +S1, +S2 - GI/Abdominal Exam GI & Abdominal Exam: Soft, Tenderness (mild, LLQ). absent: Distended, Firm, Guarding, Rigid, Rebound Assessment and Plan - Assessment and Plan (Free Text) Plan: Assessment Colonic perforation with intraperitoneal free air C. diff. associated diarrhea ulcerative colitis HTN dyslipidemia COPD morbid obesity with BMI 41 Plan continue Zosyn day 5 and PO Vancomycin with IV Flagyl day 3 follow up further recommendations and plans of GI and Surgery will continue to monitor clinically
--- NOTE | 2018-05-23 12:17 | CP.PCM.PCO ---
Addendum Addendum: Patient interviewed at bedside. She is oriented to location and year though initially reports it is still April. Patient denies any major psychiatric concerns and doesn't present as psychotic or overtly disorganized. She is stressed due to medical issues however this anxiety appears appropriate. She defers on any further psychiatric care , aware that she can request our intervention at any point in the future should she change her mind. 05/23/18 12:15
--- NOTE | 2018-05-23 16:24 | PN ---
DATE: 05/23/2018 SUBJECTIVE: The patient is lying in bed. She is comfortable. She has some mild postop abdominal pain in the lower abdomen. She denies any nausea or vomiting. NG tube is draining bilious fluid. She drained 300 mL of bilious fluid overnight. PHYSICAL EXAMINATION VITAL SIGNS: Revealed temperature of 99.9, blood pressure 143/93 and heart rate of 89. HEENT: Reveals sclerae to be white. Conjunctivae pink. NECK: Supple. CHEST: Reveals lungs to be clear. HEART: Reveals regular rate and rhythm. ABDOMEN: Soft. There is some hypoactive bowel sounds. The incision is dry. She has a left lower quadrant colostomy draining serous fluid. No stool yet. There is a scant amount of serosanguineous fluid in the right Arnaud drain. EXTREMITIES: Show no edema. LABORATORY DATA: Revealed white blood cell count 9.3, hemoglobin 9.5, and platelet count 222,000. Chemistries reveal potassium of 3.3 and albumin of 2.8. IMPRESSION: This is a 57-year-old female with longstanding chronic ulcerative colitis with a colonic perforation discovered during a colonoscopy. The patient also has pseudomembranous colitis with positive Clostridium difficile toxin. RECOMMENDATIONS: 1. Continue current treatment with broad-spectrum antibiotics. 2. Replace potassium. 3. Continue Flagyl 500 mg IV t.i.d. for her C. diff. 4. Out of bed to chair. Derek Rowland MD
--- NOTE | 2018-05-23 20:12 | PN ---
DATE: 05/23/2018 SUBJECTIVE: The patient was seen this Thursday morning in room 264, bed 2. She was resting comfortably in bed, less nervous about being in the hospital and having less postop pain. PHYSICAL EXAMINATION GENERAL: She is awake, alert and answers appropriately, smiles and is in good spirits. HEAD AND NECK: Unremarkable. CARDIOPULMONARY: Heart is regular, not tachycardic. LUNGS: Show good aeration right and left. ABDOMEN: Soft. There is minimal bowel sounds. No gas in the colostomy. She reports feeling a slight bit of grumbling in the belly, but not passing gas. EXTREMITIES: Thin. No edema. SCDs are in place. IMPRESSION: 1. Postoperative with colostomy on the left side. 2. Ulcerative colitis. 3. Clostridium difficile. 4. Hypertension. 5. Fibromyalgia. 6. Chronic pain syndrome. 7. Chronic opiate use. PLAN: Encourage the patient to be out of bed, begin activities and ambulating. Her NG tube is back in because of nausea and abdominal distention so her p.o. meds will be put on hold for 48-hours. We can resume them any time when the NG tube comes out and the bowel sounds become active. Quincy Langley MD MTDD
[2018-05-24] MEDS: HYDROmorphone 1 mg/ml ISec IVP PRN ×2 (01:26→07:47)
[2018-05-24] MEDS: Albuterol-Ipratrop 3 mg / 0.5 (3 ml) UD IH SCH ×4 (01:28→19:42)
[2018-05-24] MEDS: Potassium Chloride 20 MEQ in Dextrose 5%/0.45% NS 1,000 ML IV SCH ×3 (05:37→18:16)
[2018-05-24] MEDS: metroNIDAZOLE IV 500 mg/100 ml 500 MG/100 ML BAG IVPB SCH ×3 (05:37→21:14)
[2018-05-24] MEDS: Piperacillin/Tazobact 3.375 gm 100 ML IVPB SCH ×3 (06:21→21:13)
[2018-05-24 07:09] LABS: BASO # 0.05 K/mm3 (0.0-2.0); BASO % 0.5 % (0.0-3.0); EOS # 0.3 (0.0-0.7); EOS % 2.9 % (1.5-5.0); HEMOGLOBIN 9.2 g/dL (12.0-16.0); LYMPH # 1.9 (1.2-3.4); LYMPH % 20.3 % (22.0-35.0); MEAN CELL VOLUME 83.2 fl (80.0-105.0); MEAN CORPUSCULAR HEMOGLOBIN 27.1 pg (25.0-35.0); MEAN CORPUSCULAR HGB CONC 32.6 g/dl (31.0-37.0); MEAN PLATELET VOLUME 10.1 fl (7.0-11.0); MONO # 0.4 (0.1-0.6); MONO % 4.3 % (1.0-6.0); RBC 3.39 10^6/uL (3.5-6.1); WHITE BLOOD COUNT 9.4 10^3/uL (4.5-11.0)
[2018-05-24 07:24] LABS: ALBUMIN 2.3 g/dL (3.0-4.8); ALT/SGPT 21 U/L (7-56); AST/SGOT 17 U/L (14-36); BLOOD UREA NITROGEN 5 mg/dL (7-21); CALCIUM 7.5 mg/dL (8.4-10.5); GFR NON-AFRICAN AMERICAN > 60
[2018-05-24] MEDS: Arformoterol 15 mcg/2 ml Inh Sol IH SCH ×2 (08:04→19:42)
[2018-05-24] MEDS: Budesonide 0.5 mg/2 ml Inhal Susp UD IH SCH ×2 (08:04→19:42)
--- NOTE | 2018-05-24 08:26 | OP ---
PROCEDURE DATE: 05/19/2018 SURGEON: Quincy Ontiveros MD ASSISTANTS: Dawna Gonzales DO; Jeimy Ruth DO; Tonny Trujillo D.O. TYPE OF ANESTHESIA: General endotracheal as well as local. PREOPERATIVE DIAGNOSIS: Rectosigmoid perforation. POSTOPERATIVE DIAGNOSIS: Rectosigmoid perforation. ESTIMATED BLOOD LOSS: 100 mL. DRAINS: Arnaud drains. COMPLICATIONS: None. PROCEDURES: Exploratory laparotomy, rectosigmoid resection, replacement and colostomy. INDICATIONS: This is a 57-year-old female with history of ulcerative colitis who presented for colonoscopy and sustained a rectosigmoid perforation. The perforation was attempted to be closed using [address] after the colonoscopy demonstrated significant intraperitoneal free air, and the decision was made to take the patient to the OR. DESCRIPTION OF THE PROCEDURE: The patient was placed in a supine position and then general endotracheal anesthesia was induced. A time-out was completed verifying the correct patient, procedure, site, and positioning prior to beginning the procedure. Preoperative antibiotics were given. A Palencia catheter and NG tube were placed. The abdomen was prepped and draped in the usual sterile fashion. A vertical midline incision was made from just superior to the umbilicus to just above the pubis. This was deepened to the subcutaneous tissues and hemostasis was achieved with electrocautery. The linear alba was identified, incised, and the peritoneal cavity entered. The abdomen was explored. Adhesions were lysed sharply under direct visualization with Metzenbaum scissors. Copious amounts of serous fluid was drained from the abdomen, and approximately 3 cm perforation in the rectosigmoid colon was identified. The clips that were placed during the colonoscopy were removed, they were 11 in total. The small bowel was inspected and retracted to the right using a moist towel and a Bookwalter self-retaining retractor was used. Using Metzenbaum scissors, the colon was freed from its peritoneal attachments along the white line of Toldt proximally from the sigmoid colon and distal to the perforation. Both ureters were identified and protected. Points of transection were selected proximally and distal to the perforation. The bowel was divided with the ANNELIESE linear cutting stapler proximally and the Contour Curve Cutter Stapler distally. The peritoneum overlying the mesentery was then scored with Metzenbaum scissors and the artery was identified. The mesentery was taken with a LigaSure. Specimen was removed and hemostasis was assured. Proximal colon reached easily to the proposed colostomy site without tension. I discussed skin was removed from the colostomy site in the left lower quadrant. The incision was deepened to all layers of the abdominal wall and dilated to three fingers. The colon was passed out to the ostomy site without tension or torsion. A close suction Arnaud drain was placed in the pelvis and brought out through a separate stab wound lateral to the incision. The drain was secured with 3-0 silk. The fascia was closed with a running suture of double loop 0-PDS and the subcutaneous tissues were closed with interrupted 3-0 Vicryl. The skin was closed with skin torrey. The colostomy was matured with multiple interrupted sutures of 3-0 Vicryl in a Ann fashion. An ostomy bag was applied. The patient tolerated the procedure well and was taken to the PACU in stable condition. Dawna Gonzales DO Quincy Ontiveros MD
--- NOTE | 2018-05-24 09:11 | PN ---
DATE: 05/21/2018 SUBJECTIVE: The patient was seen this Thursday morning in intensive care, coronary care bed 2, in bed comfortable, and in no acute distress. Breathing easily. Able to talk with me. Seems to be in good spirits, although concerned about her illness. PHYSICAL EXAMINATION: HEAD AND NECK: Unremarkable. Neck is supple without masses. No JVD. No carotid bruits. Thyroid is not palpable. LUNGS: Clear to auscultation and percussion. HEART: Regular, not tachycardic. ABDOMEN: Quiet. Colostomy is in place. EXTREMITIES: Show no edema. SCDs are present on the lower extremities. PLAN: Continuing IV fluids. Postop surgical followup. I will continue to follow with postop surgical team and GI. Quincy Langley MD
--- NOTE | 2018-05-24 10:41 | CP.PCM.PN ---
Subjective - Date & Time of Evaluation Date of Evaluation: 05/24/18 Time of Evaluation: 07:00 - Subjective Subjective: GENERAL SURGERY PROGRESS NOTE FOR DR. CROCKER Patient seen and examined at bedside. She has not been OOB. She has been using her IS to >500. Her pain is controlled with IV pain medication. No nausea or vomiting. No bowel function yet in ostomy. Objective - Vital Signs/Intake and Output Vital Signs (last 24 hours): Temp Pulse Resp BP Pulse Ox 98.2 F 84 20 171/97 H 94 L 05/24/18 06:00 05/24/18 06:00 05/24/18 06:00 05/24/18 06:00 05/24/18 06:00 Intake and Output: 05/24/18 05/24/18 06:59 18:59 Intake Total 0 Output Total 270 Balance -270 - Medications Medications: Current Medications Acetaminophen (Tylenol 325mg Tab) 650 mg PO Q4H PRN PRN Reason: Pain, Mild (1-3) Albuterol/Ipratropium (Duoneb 3 Mg/0.5 Mg (3 Ml) Ud) 3 ml IH [id number] [facility] Last Admin: 05/24/18 08:04 Dose: 3 ml Alprazolam (Xanax) 0.5 mg PO BID [facility]; Protocol Last Admin: 05/22/18 18:21 Dose: Not Given Arformoterol Tartrate (Brovana) 15 mcg IH [id number] [facility] Last Admin: 05/24/18 08:04 Dose: 15 mcg Benzocaine/Menthol (Cepacol Sore Throat) 1 milagros MT Q2H PRN PRN Reason: Sore Throat Budesonide (Pulmicort Respules) 0.5 mg IH [id number] [facility] Last Admin: 05/24/18 08:04 Dose: 0.5 mg Heparin Sodium (Porcine) (Heparin) 5,000 units SC Q8 [facility]; Protocol Last Admin: 05/24/18 05:37 Dose: 5,000 units Hydromorphone HCl (Dilaudid) 1 mg IVP Q6H PRN PRN Reason: Pain, severe (8-10) Last Admin: 05/24/18 07:47 Dose: 1 mg Piperacillin Sod/Tazobactam Sod (Zosyn 3.375 In Ns 100ml) 100 mls @ 25 mls/hr IVPB Q8 [facility]; Protocol Stop: 05/26/18 22:01 Last Admin: 05/24/18 06:21 Dose: 25 mls/hr Potassium Chloride 20 meq/ (Dextrose/Sodium Chloride) 1,010 mls @ 135 mls/hr IV .Q7H29M [facility] Last Admin: 05/24/18 05:37 Dose: 135 mls/hr Metronidazole (Flagyl) 500 mg in 100 mls @ 100 mls/hr IVPB Q8 [facility]; Protocol Last Admin: 05/24/18 05:37 Dose: 100 mls/hr Potassium Chloride (Potassium Chloride 10 Meq/100 Ml) 10 meq in 100 mls @ 100 mls/hr IVPB Q2H [facility] Stop: 05/24/18 13:44 Lisinopril (Zestril) 40 mg PO DAILY [facility] Last Admin: 05/22/18 12:12 Dose: Not Given Lorazepam (Ativan) 0.5 mg IVP Q6H PRN; Protocol PRN Reason: Anxiety Last Admin: 05/21/18 01:15 Dose: 0.5 mg Mesalamine (Asacol Hd 800mg) 800 mg PO TID [facility] Last Admin: 05/22/18 17:52 Dose: Not Given Metoclopramide HCl (Reglan) 5 mg IVP ACHS [facility] Last Admin: 05/24/18 09:07 Dose: 5 mg Metoprolol Tartrate (Lopressor) 50 mg PO BID [facility] Last Admin: 05/22/18 18:20 Dose: Not Given Ondansetron HCl (Zofran Inj) 4 mg IVP Q6H PRN PRN Reason: Nausea/Vomiting Last Admin: 05/23/18 17:39 Dose: 4 mg Pantoprazole Sodium (Protonix Inj) 40 mg IVP DAILY [facility] Last Admin: 05/24/18 10:07 Dose: 40 mg Pregabalin (Lyrica) 150 mg PO TID [facility] Last Admin: 05/22/18 18:21 Dose: Not Given Vancomycin HCl (Vancocin 25 Mg/Ml (Oral Use)) 250 mg PO QID [facility]; Protocol Last Admin: 05/22/18 23:04 Dose: Not Given - Labs Labs: 05/24/18 06:30 05/24/18 06:30 PT 11.0 SECONDS (9.4-12.5) 05/19/18 12:30 INR 0.97 05/19/18 12:30 - Constitutional Appears: Non-toxic, No Acute Distress - Head Exam Head Exam: ATRAUMATIC, NORMAL INSPECTION - Eye Exam Eye Exam: EOMI, Normal appearance - Respiratory Exam Respiratory Exam: NORMAL BREATHING PATTERN. absent: Respiratory Distress - Cardiovascular Exam Cardiovascular Exam: +S1, +S2 - GI/Abdominal Exam GI & Abdominal Exam: Soft, Tenderness (mild maxim-incisional tenderness). absent: Distended, Firm, Guarding, Rigid, Rebound Additional comments: Arnaud drain in place with 65cc output over past 24 hours Colostomy with no gas or stool in bag NG tube with 140cc output over past 24 hours - Neurological Exam Neurological Exam: Alert, Awake - Psychiatric Exam Psychiatric exam: Normal Affect, Normal Mood - Skin Skin Exam: Dry Assessment and Plan - Assessment and Plan (Free Text) Assessment: 57yo F with rectosigmoid perforation s/p colostomy who is now POD#5 s/p Aric's procedure - Continued Hypokalemia, K 3.2 today, replaced with KCl - Continue IVF with D5 1/2NS + 20K - NG tube removed this AM - Continue Abx for C diff - Strongly encouraged OOB and ambulation (PT recommending TCU) - Strongly encouraged IS use - Decreased dilaudid dose and added toradol - Will continue to monitor for bowel function - Continue DVT PPx w/ heparin - Discussed plan with Dr. Weston Gonzales PGY-4
--- NOTE | 2018-05-24 12:30 | CP.PCM.PCO ---
Physician Communication Note - Physician Communication Note Physician Communication Note: NGt removed,remains NPO,vomitted clear liq 05/21,abdom.series pending
--- NOTE | 2018-05-24 13:47 | RAD ---
Date of service: 05/24/2018 HISTORY: post op, SBO COMPARISON: None available. TECHNIQUE: 1 view obtained. FINDINGS: BOWEL: Mildly dilated small bowel loops are seen in the left upper quadrant of the abdomen. These loops demonstrate mild mucosal edema. Nonspecific finding. The overall pattern is not suggestive of mechanical bowel obstruction at this time. No masses or abnormal calcifications. Surgical drain noted. Surgical torrey seen over lower left abdomen and into left inguinal region. BONES: Normal. OTHER FINDINGS: None. IMPRESSION: Nonspecific mildly dilated small bowel loops with mild mucosal edema in left upper quadrant of abdomen. Postoperative changes.
[2018-05-24] MEDS: HYDROmorphone 0.5 mg/0.5 ml ISec IVP PRN ×2 (14:33→22:01)
--- NOTE | 2018-05-24 15:26 | PN ---
DATE: 05/24/2018 SUBJECTIVE: This is postop day #5, the patient still has not had any function from her colostomy. She denies any passage of air or stool through the colostomy. She has occasional breakthrough postop pain. She refused to get out of bed and to ambulate with the assistance of physical therapy yesterday. OBJECTIVE: VITAL SIGNS: Reveal temperature of 98.9, blood pressure 144/85, heart rate of 87. HEENT: Reveal sclerae to be white. Conjunctivae pale. NECK: Supple. CHEST: Reveal distant breath sounds. HEART: Reveals a regular rate and rhythm. ABDOMEN: Soft. She has a left lower quadrant colostomy. She has a right lower quadrant Arnaud drain, draining minimal serous fluid. She has a healing incision in the left lower quadrant without drainage. EXTREMITIES: Show no edema. LABORATORY DATA: Revealed hemoglobin 9.2, white blood cell count 9.5, BUN 5, potassium of 3.2. IMPRESSION: This is a 57-year-old female with longstanding chronic ulcerative colitis who developed perforation during colonoscopy 5 days ago status post sigmoid colon resection and diverting colostomy also found to have a pseudomembranous colitis with no flatus or bowel movements per colostomy 5 days postop. The patient probably has a postop ileus. RECOMMENDATIONS: 1. Continue analgesics for pain. 2. We will obtain a obstructive series of the abdomen. 3. Have encouraged the patient to start ambulating and to get out of bed to a chair. Derek Rowland MD MTDD
[2018-05-25] MEDS: Albuterol-Ipratrop 3 mg / 0.5 (3 ml) UD IH SCH ×4 (02:37→19:45)
--- NOTE | 2018-05-25 03:21 | PN ---
DATE: 05/24/2018 SUBJECTIVE: The patient in bed, in no acute distress, nontoxic. PHYSICAL EXAMINATION: VITAL SIGNS: Temperature is 98, blood pressure is 150/80, respiratory rate of . HEENT: Unremarkable. NECK: Supple. LUNGS: Decreased breath sounds. HEART: Normal, S1 and S2. ABDOMEN: Soft. LABORATORY DATA: Examination reveals a white count of 9.4, hemoglobin of 9, platelets of 235. Chemistries are noted. Serology is reviewed. Microbiology reveals cultures are negative. MEDICATIONS: Review of orders reveals the patient to be on Flagyl and Zosyn. ASSESSMENT AND PLAN: A 57-year-old female who was seen earlier this morning in room 264, bed 2, doing well, comfortable, has not had any bowel movements here but had colonic perforation with intrahepatic years, Clostridium difficile. She also had diarrhea, ulcerative colitis, and hypertension. On Zosyn, day #6. The patient also on oral vancomycin and intravenous Flagyl. The patient's Clostridium difficile antigen is positive. We will follow with you. Aki Hooker MD
[2018-05-25] MEDS: Potassium Chloride 20 MEQ in Dextrose 5%/0.45% NS 1,000 ML IV SCH (03:30)
[2018-05-25] MEDS: HYDROmorphone 0.5 mg/0.5 ml ISec IVP PRN ×2 (06:32→14:05)
[2018-05-25] MEDS: Piperacillin/Tazobact 3.375 gm 100 ML IVPB SCH (06:33)
[2018-05-25] MEDS: metroNIDAZOLE IV 500 mg/100 ml 500 MG/100 ML BAG IVPB SCH (06:34)
[2018-05-25 07:13] VITALS: RESP 20
--- NOTE | 2018-05-25 08:16 | PN ---
DEATE: 05/24/2018 SUBJECTIVE: The patient was seen this Thursday morning in room 264, bed 2, resting comfortably in bed. The NG tube is out. She reports hearing and feeling abdominal grumbling and borborygmus, although there is no gas passed or air noted in the colostomy bag. The patient is more awake and in good spirits, is smiling, and a bit more talkative, less nervous about her condition. PHYSICAL EXAMINATION: HEAD AND NECK: Unremarkable. LUNGS: Show good aeration, right and left. HEART: Regular, not tachycardic. ABDOMEN: Soft with minimal rare bowel sounds present. EXTREMITIES: Showed no edema. SCDs are in place. IMPRESSION: Postoperative with bowel sounds slowly recovering, should recover. We will continue current course. By mouth medications are set to resume tomorrow. We will follow closely. Quincy Langley MD
[2018-05-25] MEDS: Arformoterol 15 mcg/2 ml Inh Sol IH SCH ×2 (08:19→19:45)
[2018-05-25] MEDS: Mesalamine 800 mg DR Tab PO SCH ×3 (09:50→17:01)
[2018-05-25] MEDS: Vancomycin 25 MG/ML PO SCH ×4 (09:51→21:34)
[2018-05-25 10:25] LABS: BASO # 0.06 K/mm3 (0.0-2.0); BASO % 0.6 % (0.0-3.0); EOS # 0.4 (0.0-0.7); EOS % 3.3 % (1.5-5.0); HEMOGLOBIN 9.7 g/dL (12.0-16.0); LYMPH # 2.1 (1.2-3.4); LYMPH % 20.2 % (22.0-35.0); MEAN CELL VOLUME 83.4 fl (80.0-105.0); MEAN CORPUSCULAR HEMOGLOBIN 27.2 pg (25.0-35.0); MEAN CORPUSCULAR HGB CONC 32.7 g/dl (31.0-37.0); MEAN PLATELET VOLUME 10.2 fl (7.0-11.0); MONO # 0.5 (0.1-0.6); MONO % 4.4 % (1.0-6.0); RBC 3.56 10^6/uL (3.5-6.1); RED CELL DISTRIBUTION WIDTH 15.4 % (11.5-14.5); WHITE BLOOD COUNT 10.5 10^3/uL (4.5-11.0)
[2018-05-25 10:47] LABS: ALBUMIN 2.8 g/dL (3.0-4.8); ALT/SGPT 18 U/L (7-56); AST/SGOT 28 U/L (14-36); BLOOD UREA NITROGEN 5 mg/dL (7-21); CALCIUM 7.8 mg/dL (8.4-10.5); GFR NON-AFRICAN AMERICAN > 60
--- NOTE | 2018-05-25 13:15 | PN ---
DATE: 05/25/2018 SUBJECTIVE: The patient is in bed, in no acute distress, nontoxic. PHYSICAL EXAMINATION: VITAL SIGNS: Temperature 98, blood pressure 150/80, respiratory rate 20, heart rate 87. HEENT: Examination of HEENT is unremarkable. NECK: Supple. LUNGS: Decreased breath sounds. HEART: Normal S1, S2. ABDOMEN: Soft, nontender. LABORATORY EXAMINATION: Reveals a white count of 10, hemoglobin of 9, BUN of 5, creatinine 0.8. HIV is negative. Microbiology is negative. Blood cultures are negative. Nares MRSA is negative. Stool for C. diff is positive. The patient is having bowel movements and no longer having diarrhea. She is afebrile. She has a normal white count. ASSESSMENT AND PLAN: This is a 57-year-old female who was seen earlier today in 264, comfortable, had bowel movements, is admitted with colonic perforation, and was on Zosyn day #7. We will discontinue the Zosyn and discontinue the IV Flagyl. Recommend 10 days of oral vancomycin for pseudomembranous colitis. Aki Hooker MD
[2018-05-25] MEDS: Lactobacillus Acidophilus 500 MU Cap PO SCH ×2 (14:08→17:01)
--- NOTE | 2018-05-25 15:56 | CP.PCM.PCO ---
Physician Communication Note - Physician Communication Note Physician Communication Note: Pt. diet up to full liquid,+BM in colostomy,PT rec. TCU,pending GI,surg ok
--- NOTE | 2018-05-25 16:14 | CP.PCM.PN ---
Subjective - Date & Time of Evaluation Date of Evaluation: 05/25/18 Time of Evaluation: 07:00 - Subjective Subjective: GENERAL SURGERY PROGRESS NOTE FOR DR. CROCKER Patient seen and examined at bedside. She was OOB to chair yesterday with PT and ambulated today in the room with PT. She has been using her IS. Her pain is better today. Reports nausea after Reglan. She had liquid brown stool in colostomy. Objective - Vital Signs/Intake and Output Vital Signs (last 24 hours): Temp Pulse Resp BP Pulse Ox 98.8 F 85 20 131/78 97 05/25/18 12:00 05/25/18 14:00 05/25/18 12:00 05/25/18 12:00 05/25/18 06:00 Intake and Output: 05/25/18 05/25/18 06:59 18:59 Intake Total 0 535 Output Total 450 Balance -450 535 - Medications Medications: Current Medications Acetaminophen (Tylenol 325mg Tab) 650 mg PO Q4H PRN PRN Reason: Pain, Mild (1-3) Albuterol/Ipratropium (Duoneb 3 Mg/0.5 Mg (3 Ml) Ud) 3 ml IH [id number] [facility] Last Admin: 05/25/18 13:54 Dose: Not Given Alprazolam (Xanax) 0.5 mg PO BID [facility]; Protocol Last Admin: 05/25/18 10:03 Dose: 0.5 mg Arformoterol Tartrate (Brovana) 15 mcg [facility] [id number] [facility] Last Admin: 05/25/18 08:19 Dose: 15 mcg Benzocaine/Menthol (Cepacol Sore Throat) 1 milagros MT Q2H PRN PRN Reason: Sore Throat Budesonide (Pulmicort Respules) 0.5 mg IH [id number] [facility] Last Admin: 05/24/18 19:42 Dose: 0.5 mg Heparin Sodium (Porcine) (Heparin) 5,000 units SC Q8 [facility]; Protocol Last Admin: 05/25/18 14:04 Dose: 5,000 units Hydromorphone HCl (Dilaudid) 0.5 mg IVP Q4H PRN PRN Reason: Pain, severe (8-10) Last Admin: 05/25/18 14:05 Dose: 0.5 mg Ketorolac Tromethamine (Toradol) 15 mg IVP Q6 [facility] Last Admin: 05/25/18 12:05 Dose: Not Given Lactobacillus Acidophilus (Bacid Acidophilus) 1 cap PO TID [facility] Last Admin: 05/25/18 14:08 Dose: 1 cap Lisinopril (Zestril) 40 mg PO DAILY [facility] Last Admin: 05/25/18 09:50 Dose: 40 mg Lorazepam (Ativan) 0.5 mg IVP Q6H PRN; Protocol PRN Reason: Anxiety Last Admin: 05/24/18 22:02 Dose: 0.5 mg Mesalamine (Asacol Hd 800mg) 800 mg PO TID [facility] Last Admin: 05/25/18 14:08 Dose: 800 mg Metoclopramide HCl (Reglan) 10 mg IVP [facility] Metoprolol Tartrate (Lopressor) 50 mg PO BID [facility] Last Admin: 05/25/18 09:50 Dose: 50 mg Ondansetron HCl (Zofran Inj) 4 mg IVP Q6H PRN PRN Reason: Nausea/Vomiting Last Admin: 05/25/18 06:34 Dose: 4 mg Pantoprazole Sodium (Protonix Inj) 40 mg IVP DAILY [facility] Last Admin: 05/25/18 09:49 Dose: 40 mg Pregabalin (Lyrica) 150 mg PO TID [facility] Last Admin: 05/25/18 14:06 Dose: 150 mg Vancomycin HCl (Vancocin 25 Mg/Ml (Oral Use)) 250 mg PO QID [facility]; Protocol Last Admin: 05/25/18 14:07 Dose: 250 mg - Labs Labs: 05/25/18 10:00 05/25/18 10:00 PT 11.0 SECONDS (9.4-12.5) 05/19/18 12:30 INR 0.97 05/19/18 12:30 - Constitutional Appears: Non-toxic, No Acute Distress - Head Exam Head Exam: ATRAUMATIC, NORMAL INSPECTION - Eye Exam Eye Exam: EOMI, Normal appearance - Cardiovascular Exam Cardiovascular Exam: +S1, +S2 - GI/Abdominal Exam GI & Abdominal Exam: Soft. absent: Distended, Firm, Guarding, Rigid, Tenderness, Rebound Additional comments: Colostomy with liquid brown stool and air in bag Arnaud drain with 100cc serosanguinous total output over past [address] - Neurological Exam Neurological Exam: Alert, Awake, Oriented x3 - Psychiatric Exam Psychiatric exam: Normal Affect, Normal Mood - Skin Skin Exam: Dry, Normal Color, Warm Assessment and Plan - Assessment and Plan (Free Text) Assessment: 57yo F with rectosigmoid perforation s/p colostomy who is now POD#6 s/p Aric's procedure - Continued Hypokalemia, K 3.3 today, replaced with KCl - Having bowel function into colostomy - Advanced to CLD, will DC IV fluids - Will advance diet as tolerated - Continue Abx for C diff - Strongly encouraged OOB and ambulation (PT recommending TCU) - Strongly encouraged IS use - Continue pain medication regimen: dilaudid & toradol (pt refusing) - Continue DVT PPx w/ heparin - Discussed plan with Dr. Weston Gonzales PGY-4
--- NOTE | 2018-05-25 17:07 | PN ---
DATE: 05/25/2018 SUBJECTIVE: The patient is starting to pass flatus and brown liquid stool through the left lower colostomy. There is no bleeding through the colostomy. She is tolerating clear liquid diet. She denies any nausea or vomiting. She still has some intermittent postop pain. I have spoke with the patient's nurse and apparently the patient is reluctant to get out of bed to a chair and ambulate the yuri's with the assistance of physical therapy. OBJECTIVE: VITAL SIGNS: Reveal temperature 98.8, blood pressure 131/78, heart rate of 93. HEENT: Reveals sclerae to be white. Conjunctivae pale. NECK: Supple. CHEST: Reveal lungs to be clear. HEART: Reveals a regular rate and rhythm. ABDOMEN: Soft. She has a left lower quadrant colostomy which is producing flatus and brown liquid stool. Her incision is clean without drainage and healing well. Obstructive series of the abdomen yesterday revealed some mildly dilated loops of small bowel. EXTREMITIES: Show no edema. LABORATORY DATA: Reveal hemoglobin of 9.7. White blood cell count 10.5. Chemistries reveal potassium of 3.3. Magnesium of 1.8, AST, ALT, alk phos were all normal, albumin of 2.8. IMPRESSION: This is a 57-year-old female with colonic perforation found at colonoscopy with chronic active ulcerative colitis, pseudomembranous colitis status post resection of sigmoid perforation and Aric's procedure with a colostomy. She had postoperative ileus and now is finally passing flatus and liquid stool. RECOMMENDATIONS: 1. Slowly advance diet as tolerated. 2. Resume Asacol HD 800 mg three times a day. 3. Resume vancomycin 250 mg p.o. q.i.d. 4. I will start the patient on probiotics. 5. Follow electrolytes and potassium. Derek Rowland MD MTDD
[2018-05-25] MEDS: Budesonide 0.5 mg/2 ml Inhal Susp UD IH SCH (19:45)
--- NOTE | 2018-05-26 00:54 | PN ---
DATE: 05/25/2018 SUBJECTIVE: The patient was seen this Thursday late morning in room 264, bed 2, resting comfortably in bed. NG tube is out. Oral medicines are scheduled to restart today. She is awake, alert, in better spirits. Happy that the NG tube is out and she is progressing. She says she has been out of bed to chair, but I always seem to visit to find her resting comfortably in bed with SCDs in place. Nursing report little activity. She does not appear highly motivated, but I am trying to encourage the patient. PHYSICAL EXAMINATION: HEAD AND NECK: Unremarkable. Conjunctivae are pink. ABDOMEN: Soft with large amount of air present in the colostomy pouch on the left side. EXTREMITIES: Show no edema with SCDs in place. IMPRESSION: 1. Postoperative recovering from postoperative ileus and perforated viscous. 2. Ulcerative colitis. 3. Clostridium difficile. 4. Diabetes. 5. Obesity. 6. Chronic pain syndrome. 7. Fibromyalgia. 8. Chronic opiate use. PLAN: Case discussed with GI. We will encourage the patient out of bed and try for transfer to TCU in a few days for additional physical therapy, conditioning, and close monitoring. Quincy Langley MD MTDD
[2018-05-26] MEDS: HYDROmorphone 0.5 mg/0.5 ml ISec IVP PRN ×2 (02:56→10:07)
[2018-05-26 06:53] VITALS: O2SAT 94
[2018-05-26] MEDS ORDERED: Potassium Chloride 10 mEq ER Tab PO SCH (08:00)
[2018-05-26] MEDS: Arformoterol 15 mcg/2 ml Inh Sol IH SCH (08:43)
[2018-05-26] MEDS: Albuterol-Ipratrop 3 mg / 0.5 (3 ml) UD IH SCH ×2 (08:44→13:53)
[2018-05-26] MEDS: Budesonide 0.5 mg/2 ml Inhal Susp UD IH SCH (08:44)
--- NOTE | 2018-05-26 08:57 | PN ---
DATE: 05/26/2018 SUBJECTIVE: The patient is in bed in no acute distress, nontoxic. PHYSICAL EXAMINATION: VITAL SIGNS: Temperature is 98, blood pressure is 120/80, respiratory rate 20. HEENT: Unremarkable. NECK: Supple. LUNGS: Decreased breath sounds. HEART: Normal S1 and S2. ABDOMEN: Soft, nontender. LABORATORY DATA: Reveals the patient's white count is 10, hemoglobin of 9, platelets of 287. Chemistries reveal a BUN of 5, creatinine 0.8. is HIV serology is noted. ASSESSMENT AND PLAN: This is a 57-year-old female seen earlier today. She is doing well. She wants to be discharged. She is admitted with a colonic perforation and has received 7 days of antibiotics after surgery and had developed pseudomembranous colitis, now on p.o. vancomycin. Diarrhea has resolved, may complete 10 to 14 days of p.o. vancomycin. The patient for possible advancing the diet today. Aki Hooker MD
[2018-05-26 09:10] LABS: ALBUMIN 2.8 g/dL (3.0-4.8); ALT/SGPT 23 U/L (7-56); AST/SGOT 39 U/L (14-36); BLOOD UREA NITROGEN 5 mg/dL (7-21); GFR NON-AFRICAN AMERICAN > 60
[2018-05-26] MEDS: Mesalamine 800 mg DR Tab PO SCH (10:06)
[2018-05-26] MEDS: Vancomycin 25 MG/ML PO SCH (10:07)
[2018-05-26] MEDS: Lactobacillus Acidophilus 500 MU Cap PO SCH (10:07)
[2018-05-26] MEDS ORDERED: Mesalamine 800 mg DR Tab PO SCH (11:57)
[2018-05-26 12:42] VITALS: BP 132/99; PULSE 85; TEMP 98.2
--- NOTE | 2018-05-26 13:09 | CP.PCM.PN ---
Subjective - Date & Time of Evaluation Date of Evaluation: 05/26/18 Time of Evaluation: 09:30 - Subjective Subjective: General surgery progress note for Dr. John Paul Ruth, PGY-2 Pt seen/examined at bedside with surgical team Pt reports pain much improved, well controlled. Has been OOBTC with PT. Tolerating clears. Nausea resolved. Having gas and liquid brown stool output to ostomy. Objective - Vital Signs/Intake and Output Vital Signs (last 24 hours): Temp Pulse Resp BP Pulse Ox 98.2 F 85 20 132/99 H 94 L 05/26/18 12:00 05/26/18 12:00 05/26/18 12:00 05/26/18 12:00 05/26/18 06:00 Intake and Output: 05/26/18 05/26/18 06:59 18:59 Intake Total 420 Output Total 700 Balance -280 - Medications Medications: Current Medications Acetaminophen (Tylenol 325mg Tab) 650 mg PO Q4H PRN PRN Reason: Pain, Mild (1-3) Albuterol/Ipratropium (Duoneb 3 Mg/0.5 Mg (3 Ml) Ud) 3 ml IH [id number] [facility] Last Admin: 05/26/18 08:44 Dose: Not Given Alprazolam (Xanax) 0.5 mg PO BID [facility]; Protocol Last Admin: 05/26/18 10:06 Dose: 0.5 mg Arformoterol Tartrate (Brovana) 15 mcg IH [id number] [facility] Last Admin: 05/26/18 08:43 Dose: Not Given Benzocaine/Menthol (Cepacol Sore Throat) 1 milagros MT Q2H PRN PRN Reason: Sore Throat Budesonide (Pulmicort Respules) 0.5 mg IH [id number] [facility] Last Admin: 05/26/18 08:44 Dose: Not Given Heparin Sodium (Porcine) (Heparin) 5,000 units SC Q8 [facility]; Protocol Last Admin: 05/26/18 05:39 Dose: 5,000 units Hydromorphone HCl (Dilaudid) 0.5 mg IVP Q4H PRN PRN Reason: Pain, severe (8-10) Last Admin: 05/26/18 10:07 Dose: 0.5 mg Ketorolac Tromethamine (Toradol) 15 mg IVP Q6 [facility] Last Admin: 05/26/18 05:40 Dose: 15 mg Lactobacillus Acidophilus (Bacid Acidophilus) 1 cap PO TID [facility] Last Admin: 05/26/18 10:07 Dose: 1 cap Lisinopril (Zestril) 40 mg PO DAILY [facility] Last Admin: 05/26/18 10:07 Dose: 40 mg Lorazepam (Ativan) 0.5 mg IVP Q6H PRN; Protocol PRN Reason: Anxiety Last Admin: 05/24/18 22:02 Dose: 0.5 mg Mesalamine (Asacol Hd 800mg) 1,600 mg PO TID [facility] Metoclopramide HCl (Reglan) 10 mg IVP ACHS [facility] Last Admin: 05/26/18 08:05 Dose: Not Given Metoprolol Tartrate (Lopressor) 50 mg PO BID [facility] Last Admin: 05/26/18 10:16 Dose: 50 mg Ondansetron HCl (Zofran Inj) 4 mg IVP Q6H PRN PRN Reason: Nausea/Vomiting Last Admin: 05/25/18 06:34 Dose: 4 mg Pantoprazole Sodium (Protonix Inj) 40 mg IVP DAILY [facility] Last Admin: 05/26/18 10:06 Dose: 40 mg Potassium Chloride (Klor-Con 10) 10 meq PO BRK [facility] Stop: 05/27/18 08:01 Last Admin: 05/26/18 10:07 Dose: 10 meq Pregabalin (Lyrica) 150 mg PO TID [facility] Last Admin: 05/26/18 10:06 Dose: 150 mg Vancomycin HCl (Vancocin 25 Mg/Ml (Oral Use)) 250 mg PO QID [facility]; Protocol Last Admin: 05/26/18 10:07 Dose: 250 mg - Labs Labs: 05/25/18 10:00 05/26/18 08:25 PT 11.0 SECONDS (9.4-12.5) 05/19/18 12:30 INR 0.97 05/19/18 12:30 - Constitutional Appears: Non-toxic, No Acute Distress - Head Exam Head Exam: ATRAUMATIC, NORMAL INSPECTION, NORMOCEPHALIC - Eye Exam Eye Exam: EOMI, Normal appearance - ENT Exam ENT Exam: Mucous Membranes Moist, Normal Exam - Neck Exam Neck Exam: Full ROM - Respiratory Exam Respiratory Exam: NORMAL BREATHING PATTERN - Cardiovascular Exam Cardiovascular Exam: REGULAR RHYTHM - GI/Abdominal Exam GI & Abdominal Exam: Soft. absent: Distended (obese), Firm, Guarding, Tenderness, Hernia Additional comments: Midline incision with torrey in place- no induration erythema or fluctuance. Ostomy in place with small amount of brown liquid stool and air to ostomy bag - Extremities Exam Extremities Exam: Normal Inspection - Neurological Exam Neurological Exam: Alert, Awake, CN II-XII Intact, Oriented x3 - Psychiatric Exam Psychiatric exam: Normal Affect, Normal Mood - Skin Skin Exam: Dry, Intact, Normal Color, Warm Assessment and Plan - Assessment and Plan (Free Text) Assessment: 57yo F with rectosigmoid perforation s/p ex -lap with colostomy POD#7 s/p Hartm haseeb's procedure Plan: K 3.5 today Replaced 20 mEgs K Tolerated FLD Advanced to altered hepatic diet Monitor ostomy output Continue Abx for C diff OOBTC PT Encourage IS use Pain medications transitioned to PO- Oxy Continue Toradol, Tylenol DVT ppx Flory, PGY-2
[2018-05-26] MEDS ORDERED: HYDROmorphone 0.5 mg/0.5 ml ISec IVP PRN (13:14)
[2018-05-26] MEDS ORDERED: oxyCODONE 5 mg Immediate Release Tab PO PRN (13:15)
--- NOTE | 2018-05-27 04:38 | DS ---
HOSPITAL COURSE: The patient is a 57-year-old female who was admitted for colonoscopy. She had been suffering from abdominal pain. She is known to have a history of ulcerative colitis. She also has a history of COPD, fibromyalgia, hypertension, anxiety, insomnia and chronic back pain due to spinal stenosis. Unfortunately during colonoscopy, the patient suffered a perforated viscus. She was taken to the horizontal drill operator by Dr. Quincy Ontiveros, who found the colon and rectum to be extremely friable and could not be anastomosed, therefore, Aric pouch procedure and colostomy was performed. The patient did well postoperatively. She was treated with antibiotics. She was followed by Dr. Ontiveros, the surgeon. 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 Dr. Hooker, the infectious disease specialist. The patient did well. Her bowel sounds resumed. The patient's diet was advanced and arrangements were made for her to be transferred to the Transitional Care Unit for additional physical therapy and for continued antibiotic. The patient unfortunately developed diarrhea with C. difficile pseudomembranous colitis, the antibiotics were therefore discontinued and the patient is now on vancomycin 250 mg four times a day and she will be taken it for total of 10-14 days. When seen today, the patient is awake, alert and oriented. She is in good spirits. She is looking forward to transfer to the Transitional Care Unit for physical therapy and increasing activity. The patient is discharged to the Transitional Care Unit in improved condition. FINAL DIAGNOSES: 1. Perforated viscus. 2. Ulcerative colitis. 3. Peritonitis. 4. Pseudomembranous colitis. 5. Chronic obstructive pulmonary disease. 6. Hypertension. 7. Fibromyalgia. 8. Anxiety. 9. Chronic low back pain. Kane Langley MD
--- NOTE | 2018-05-27 09:02 | PN ---
DATE: 05/26/2018 SUBJECTIVE: The patient is lying in bed, comfortable. She is tolerating full liquid diet. She denies any nausea or vomiting. She is passing stool through her left lower quadrant colostomy. PHYSICAL EXAMINATION: VITAL SIGNS: Reveal temperature of 98.2, blood pressure 132/99, heart rate of 85. HEENT: Reveals sclerae to be white, conjunctivae pink. NECK: Supple. CHEST: Reveal lungs to be clear. HEART: Reveals regular rate and rhythm. ABDOMEN: Soft, flabby, nontender. She has a healing left-sided incision. She has a left lower quadrant colostomy which is producing stool. There is no blood in the colostomy. She has a right lower quadrant Arnaud drain which is draining minimal serous fluid. EXTREMITIES: Show no edema. LABORATORY DATA: Revealed white blood cell count 10.5, hemoglobin 9.7. Chemistries reveal potassium of 3.5. AST 39, ALT 23. IMPRESSION: This is a 57-year-old female with chronic ulcerative colitis, status post perforation found during colonoscopy with pseudomembranous colitis. RECOMMENDATIONS: 1. We will advance to a soft diet. 2. The patient is to be transferred to transitional care for deconditioning. 3. Continue vancomycin 250 mg p.o. four times a day. 4. We will increase Asacol HD to 1600 mg three times a day. 5. Continue probiotics. Derek Rowland MD
== END 2018-05-26 14:07 | DRG 907 ==
LOC: ENDO 08:40 → CCU 12:59 → 2RNO 05-21 19:24
PROVIDERS: ADMIT Internal Medicine; ATTEND Internal Medicine
PROC: 0DBN8ZX Excision of Sigmoid Colon, Via Natural or Artificial Opening Endoscopic, Diagnostic (ICD-10-PCS; 2018-05-19)
PROC: 0DTN0ZZ Resection of Sigmoid Colon, Open Approach (ICD-10-PCS; principal; 2018-05-21)
PROC: 0D1N0Z4 Bypass Sigmoid Colon to Cutaneous, Open Approach (ICD-10-PCS; 2018-05-21)
PROC: 0D9670Z Drainage of Stomach with Drainage Device, Via Natural or Artificial Opening (ICD-10-PCS; 2018-05-22)
DX: K91.71 Accidental puncture and laceration of a digestive system organ or structure during a digestive system procedure (principal); J18.1 Lobar pneumonia, unspecified organism; K65.9 Peritonitis, unspecified; K51.811 Other ulcerative colitis with rectal bleeding; J44.0 Chronic obstructive pulmonary disease with (acute) lower respiratory infection; N17.9 Acute kidney failure, unspecified; A04.72 Enterocolitis due to Clostridium difficile, not specified as recurrent; Z68.41 Body mass index [BMI] 40.0-44.9, adult; K91.89 Other postprocedural complications and disorders of digestive system; K56.7 Ileus, unspecified; Y83.6 Removal of other organ (partial) (total) as the cause of abnormal reaction of the patient, or of later complication, without mention of misadventure at the time of the procedure; I10 Essential (primary) hypertension; E11.40 Type 2 diabetes mellitus with diabetic neuropathy, unspecified; E87.6 Hypokalemia; E78.5 Hyperlipidemia, unspecified; R33.9 Retention of urine, unspecified; E66.01 Morbid (severe) obesity due to excess calories; M79.7 Fibromyalgia; G89.4 Chronic pain syndrome; F17.210 Nicotine dependence, cigarettes, uncomplicated; F41.9 Anxiety disorder, unspecified; G47.00 Insomnia, unspecified; M48.00 Spinal stenosis, site unspecified; Y73.0 Diagnostic and monitoring gastroenterology and urology devices associated with adverse incidents; Y95 Nosocomial condition; Z88.2 Allergy status to sulfonamides; Z79.891 Long term (current) use of opiate analgesic; Z86.018 Personal history of other benign neoplasm

== ENCOUNTER 2018-05-26 14:10 | Inpatient (IN) | payer OTHER, MEDICAID ==
[2018-05-26 14:36] VITALS: BMI 42.6
[2018-05-26] MEDS ORDERED: Benzocaine/Menthol (Cepacol) Lozenge MT PRN (14:53)
[2018-05-26] MEDS ORDERED: HYDROmorphone 0.5 mg/0.5 ml ISec IVP PRN ×2 (14:56→15:30)
[2018-05-26] MEDS: Albuterol-Ipratrop 3 mg / 0.5 (3 ml) UD IH SCH ×2 (15:11→20:38)
[2018-05-26] MEDS: Lactobacillus Acidophilus 500 MU Cap PO SCH (17:29)
[2018-05-26] MEDS: Mesalamine 800 mg DR Tab PO SCH (17:35)
[2018-05-26] MEDS: Vancomycin 25 MG/ML PO SCH ×2 (18:47→21:48)
[2018-05-26] MEDS ORDERED: Arformoterol 15 mcg/2 ml Inh Sol IH SCH (20:00)
[2018-05-26] MEDS: Budesonide 0.5 mg/2 ml Inhal Susp UD IH SCH (20:38)
[2018-05-26] MEDS: Arformoterol 15 mcg/2 ml Inh Sol IH SCH (20:38)
--- NOTE | 2018-05-26 23:18 | HP ---
DATE OF EXAM: 05/26/2018 This is the admitting history and physical for her going to the Transitional Care Unit today. HISTORY OF PRESENT ILLNESS: The patient is a 57-year-old female with a history of ulcerative colitis who unfortunately suffered a perforated viscus during colonoscopy. She was brought to the operating room and a Aric's pouch and a colostomy procedure was performed by Dr. Quincy Ontiveros. The patient was admitted to the Intensive Care Unit postoperatively. She was treated with IV antibiotics. She was followed by the Infectious Disease Dr. Hooker, by Dr. Ontiveros the surgeon, and Dr. Rowland her edi manager. The patient did well. As her appetite improved, she started taking more and more p.o.'s. Arrangements were made for her to be transferred to the Transitional Care Unit for physical therapy. The patient is currently on vancomycin 250 mg four times a day for C. difficile pseudomembranous colitis, which had developed from the IV antibiotics she was on, on the medical floor. PHYSICAL EXAMINATION GENERAL: The patient is awake, alert and oriented. HEENT: Head, eyes, ears, nose and throat are negative. NECK: The neck is supple with no lymphadenopathy and no goiter. LUNGS: Clear to auscultation and percussion. HEART: Regular with no murmurs appreciated. ABDOMEN: Soft. Positive bowel sounds are audible. Colostomy is in place. Surgical wounds are healing nicely. Dressings are intact. EXTREMITIES: Free of cyanosis, clubbing or edema. NEUROLOGIC: The patient is awake, alert and oriented with no focal neurological signs. IMPRESSION AND PLAN: So the patient is to be followed closely on the Transitional Care Unit. Physical therapy for ambulation is to be encouraged. We will also be encouraging the patient to decrease her use of opiates as it would benefit her gastrointestinal condition as well. The patient to be reevaluated in the morning. Kane Langley MD
[2018-05-27] MEDS: Albuterol-Ipratrop 3 mg / 0.5 (3 ml) UD IH SCH ×3 (02:40→20:19)
[2018-05-27] MEDS: Budesonide 0.5 mg/2 ml Inhal Susp UD IH SCH ×2 (07:17→20:20)
[2018-05-27] MEDS: Arformoterol 15 mcg/2 ml Inh Sol IH SCH ×2 (07:17→20:18)
[2018-05-27] MEDS: Potassium Chloride 10 mEq ER Tab PO SCH (08:09)
--- NOTE | 2018-05-27 08:48 | CP.PCM.PN ---
Subjective - Date & Time of Evaluation Date of Evaluation: 05/27/18 Time of Evaluation: 07:00 - Subjective Subjective: GENERAL SURGERY PROGRESS NOTE FOR DR. CROCKER Patient seen and examined at bedside. She was transferred to TCU yesterday. She is doing well, improving with her IS now up to 1500. She is tolerating regular diet and eating 50-75% of her meal. She is having bowel function into her colostomy. Objective - Vital Signs/Intake and Output Vital Signs (last 24 hours): Temp Pulse Resp BP Pulse Ox 99.2 F 83 18 131/89 05/26/18 19:09 05/26/18 19:09 05/26/18 19:09 05/26/18 19:09 Intake and Output: 05/27/18 05/27/18 06:59 18:59 Intake Total 410 Output Total 535 Balance -125 - Medications Medications: Current Medications Acetaminophen (Tylenol 325mg Tab) 650 mg PO Q4H PRN; Protocol PRN Reason: Pain, Mild (1-3) Last Admin: 05/26/18 17:33 Dose: 650 mg Albuterol/Ipratropium (Duoneb 3 Mg/0.5 Mg (3 Ml) Ud) 3 ml IH Q6H [facility]; Protocol Last Admin: 05/27/18 02:40 Dose: Not Given Alprazolam (Xanax) 0.5 mg PO BID [facility]; Protocol Last Admin: 05/26/18 17:34 Dose: 0.5 mg Arformoterol Tartrate (Brovana) 15 mcg IH [id number] [facility]; Protocol Last Admin: 05/27/18 07:17 Dose: 15 mcg Benzocaine/Menthol (Cepacol Sore Throat) 1 milagros MT Q2H PRN; Protocol PRN Reason: Sore Throat Budesonide (Pulmicort Respules) 0.5 mg IH [id number] [facility]; Protocol Last Admin: 05/27/18 07:17 Dose: 0.5 mg Heparin Sodium (Porcine) (Heparin) 5,000 units SC Q8 [facility]; Protocol Last Admin: 05/27/18 05:45 Dose: 5,000 units Ketorolac Tromethamine (Toradol) 15 mg IVP Q6H [facility]; Protocol Stop: 05/28/18 15:01 Last Admin: 05/27/18 05:41 Dose: 15 mg Lactobacillus Acidophilus (Bacid Acidophilus) 1 cap PO TID [facility]; Protocol Last Admin: 05/26/18 17:29 Dose: 1 cap Lisinopril (Zestril) 40 mg PO DAILY [facility]; Protocol Mesalamine (Asacol Hd 800mg) 1,600 mg PO TID [facility]; Protocol Last Admin: 05/26/18 17:35 Dose: 1,600 mg Metoclopramide HCl (Reglan) 10 mg IVP ACHS [facility]; Protocol Last Admin: 05/27/18 06:51 Dose: 10 mg Metoprolol Tartrate (Lopressor) 50 mg PO BID [facility]; Protocol Last Admin: 05/26/18 17:30 Dose: 50 mg Ondansetron HCl (Zofran Inj) 4 mg IVP Q6H PRN; Protocol PRN Reason: Nausea/Vomiting Oxycodone/Acetaminophen (Percocet 5/325 Mg Tab) 1 tab PO Q6H PRN PRN Reason: Pain, severe (8-10) Stop: 05/30/18 08:44 Pantoprazole Sodium (Protonix Inj) 40 mg IVP 0600 [facility]; Protocol Last Admin: 05/27/18 05:43 Dose: 40 mg Potassium Chloride (Klor-Con 10) 10 meq PO 0800 [facility]; Protocol Last Admin: 05/27/18 08:09 Dose: 10 meq Pregabalin (Lyrica) 150 mg PO TID [facility]; Protocol Last Admin: 05/26/18 17:30 Dose: 150 mg Vancomycin HCl (Vancocin 25 Mg/Ml (Oral Use)) 250 mg PO QID [facility]; Protocol Last Admin: 05/26/18 21:48 Dose: 250 mg - Constitutional Appears: Non-toxic, No Acute Distress - Head Exam Head Exam: ATRAUMATIC, NORMAL INSPECTION - Eye Exam Eye Exam: EOMI, Normal appearance - Respiratory Exam Respiratory Exam: NORMAL BREATHING PATTERN. absent: Respiratory Distress - Cardiovascular Exam Cardiovascular Exam: +S1, +S2 - GI/Abdominal Exam GI & Abdominal Exam: Soft. absent: Distended, Firm, Guarding, Rigid, Tenderness, Rebound Additional comments: Colostomy in place with liquid brown stool Arnaud drain in place with 35cc serosanguinous output Tamara in place over incision - Neurological Exam Neurological Exam: Alert, Awake, Oriented x3 - Psychiatric Exam Psychiatric exam: Normal Affect, Normal Mood - Skin Skin Exam: Dry, Normal Color Assessment and Plan - Assessment and Plan (Free Text) Assessment: 57yo F with rectosigmoid perforation s/p colostomy who is now POD#8 s/p Aric's procedure - Having bowel function into colostomy - Tolerating regular diet - Continue Abx for C diff - Strongly encouraged OOB and ambulation - Strongly encouraged continued IS use, pt improving - Dilaudid DCed, pt on percocet, toradol - Arnaud drain removed today - Continue DVT PPx w/ heparin - Discussed plan with Dr. Weston Gonzales PGY-4
[2018-05-27] MEDS: Mesalamine 800 mg DR Tab PO SCH ×3 (09:20→17:29)
[2018-05-27] MEDS: Lactobacillus Acidophilus 500 MU Cap PO SCH ×3 (09:20→17:29)
[2018-05-27] MEDS: Vancomycin 25 MG/ML PO SCH ×4 (09:23→21:17)
[2018-05-27] MEDS: Pantoprazole 40 mg EC Tab PO SCH (10:48)
[2018-05-27] MEDS: Oxycodone/Acetaminophen 5/325 mg Tab PO PRN ×2 (11:51→21:17)
--- NOTE | 2018-05-27 12:38 | PN ---
DATE: 05/27/2018 SUBJECTIVE: The patient is lying in bed, comfortable. She denies any nausea, vomiting or abdominal pain. She has been transferred to transitional care. PHYSICAL EXAMINATION: VITAL SIGNS: Temperature of 99.2, blood pressure 131/89, heart rate of 83. HEENT: Reveals sclerae to be white. Conjunctivae pink. NECK: Supple. CHEST: Lungs are clear. HEART: Reveals a regular rate and rhythm. ABDOMEN: Obese, soft. The left lower quadrant incision is without drainage. She has a left lower quadrant colostomy producing stool. She has a Arnaud drain in the right lower quadrant without any drainage. EXTREMITIES: Show no edema. LABORATORY DATA: No new laboratory data available. IMPRESSION: This is a 57-year-old female with colon perforation during colonoscopy, status post resection of rectosigmoid junction with end-colostomy with chronic ulcerative colitis and pseudomembranous colitis. She also has deconditioning. RECOMMENDATIONS: 1. The patient is to start rehab for ambulation and conditioning. 2. Continue Asacol HD 1600 t.i.d., vancomycin 250 mg p.o. four times a day. We will switch Protonix and Reglan to p.o. Derek Rowland MD
[2018-05-27] MEDS: Metoclopramide 5 mg/5 ml Oral Sol PO SCH ×3 (14:05→21:11)
--- NOTE | 2018-05-27 23:10 | PN ---
DATE: 05/27/2018 DAILY PROGRESS NOTE SUBJECTIVE: The patient was seen this morning in Transitional Care Unit, sitting on the edge of the bed, ready to get up and ambulate. She is much more awake, alert, happy, and doing better with the NG tube out, her wounds are dressed, her colostomy functioning with gas and stool being passed and coming to terms with her illness realizing that she is in fact getting better as we had reassured her. PLAN: Continue physical therapy. Oral medications as well as treatment for C. diff with p.o. vancomycin and treatment of her ulcerative colitis per Dr. Rowland. Quincy Langley MD
[2018-05-28] MEDS: Albuterol-Ipratrop 3 mg / 0.5 (3 ml) UD IH SCH ×4 (02:00→20:00)
--- NOTE | 2018-05-28 03:46 | CON ---
DATE: 05/27/2018 CHIEF COMPLAINT: Weakness times several days. HISTORY OF PRESENT ILLNESS: This is a 57-year-old female who has a history of hypertension, hyperlipidemia, chronic obstructive lung disease, ulcerative colitis, neuropathy, fibromyalgia, and parathyroid adenoma, who was admitted, had a colonoscopy complicated with a perforation, rectosigmoid perforation, had an exploratory lap, colectomy and was given antibiotics, now transferred to room 303. The patient did have diarrhea and found to have pseudomembranous colitis, is on p.o. vancomycin. REVIEW OF SYSTEMS: A 12-point review of systems is performed. PAST MEDICAL HISTORY: Significant for hypertension, hyperlipidemia, chronic obstructive lung disease, ulcerative colitis, fibromyalgia, neuropathy, and parathyroid adenoma. The patient had a colonoscopy last admission. PAST SURGICAL HISTORY: Significant for cholecystectomy and a sinus surgery and a foot surgery. ALLERGIES: THE PATIENT IS ALLERGIC TO SULFA. MEDICATIONS: Reviewed. PHYSICAL EXAMINATION: VITAL SIGNS: The patient's temperature is 98, blood pressure is 130/40, respiratory rate of 18, heart rate of 98. HEENT: Unremarkable. NECK: Supple. LUNGS: Decreased breath sounds. HEART: Normal S1, S2. ABDOMEN: Soft, nontender. LABORATORY EXAMINATION: Reviewed. REVIEW OF ORDERS: Dr. Rowland's progress note is reviewed. It says the patient had colon perforation during colonoscopy, status post resection of rectosigmoid junction with end colostomy with chronic ulcerative colitis, pseudomembranous colitis. Dr. Dawna Gonzales's progress note is also reviewed. It says the patient had a Aric's procedure and colostomy and postop day #8. History and physical examination is reviewed. ASSESSMENT AND PLAN: This is a 57-year-old female with pseudomembranous colitis, on p.o. vancomycin, will complete 10 to 14 days, status post abdominal surgery. The patient with hypertension, chronic obstructive pulmonary disease, ulcerative colitis, fibromyalgia, parathyroid adenoma, hyperlipidemia. Aki Hooker MD
[2018-05-28] MEDS: Pantoprazole 40 mg EC Tab PO SCH (05:33)
[2018-05-28] MEDS: Metoclopramide 5 mg/5 ml Oral Sol PO SCH ×4 (06:55→21:59)
[2018-05-28] MEDS: Arformoterol 15 mcg/2 ml Inh Sol IH SCH ×2 (07:23→20:01)
[2018-05-28] MEDS: Budesonide 0.5 mg/2 ml Inhal Susp UD IH SCH ×2 (07:24→20:01)
[2018-05-28 07:29] LABS: ALBUMIN 3.3 g/dL (3.0-4.8); ALT/SGPT 25 U/L (7-56); AST/SGOT 29 U/L (14-36); BLOOD UREA NITROGEN 6 mg/dL (7-21); CALCIUM 8.3 mg/dL (8.4-10.5); GFR NON-AFRICAN AMERICAN 57
[2018-05-28] MEDS: Mesalamine 800 mg DR Tab PO SCH ×3 (09:16→17:27)
[2018-05-28] MEDS: Potassium Chloride 10 mEq ER Tab PO SCH (09:17)
[2018-05-28] MEDS: Lactobacillus Acidophilus 500 MU Cap PO SCH ×3 (09:17→17:28)
[2018-05-28] MEDS: Vancomycin 25 MG/ML PO SCH ×4 (09:18→21:59)
[2018-05-28] MEDS: Oxycodone/Acetaminophen 5/325 mg Tab PO PRN (09:22)
[2018-05-28] MEDS: Nystatin 100,000 Units/gm Topical Pow(15 gm) TOP SCH ×2 (09:50→17:28)
[2018-05-28 09:52] LABS: BASO # 0.06 K/mm3 (0.0-2.0); BASO % 0.4 % (0.0-3.0); EOS # 0.2 (0.0-0.7); EOS % 1.3 % (1.5-5.0); HEMOGLOBIN 11.1 g/dL (12.0-16.0); LYMPH % 12.3 % (22.0-35.0); MEAN CORPUSCULAR HEMOGLOBIN 27.4 pg (25.0-35.0); MEAN CORPUSCULAR HGB CONC 31.7 g/dl (31.0-37.0); MEAN PLATELET VOLUME 10.3 fl (7.0-11.0); MONO # 0.5 (0.1-0.6); MONO % 3.2 % (1.0-6.0); RBC 4.05 10^6/uL (3.5-6.1); RED CELL DISTRIBUTION WIDTH 16.5 % (11.5-14.5); WHITE BLOOD COUNT 16.3 10^3/uL (4.5-11.0)
[2018-05-28 09:55] LABS: MEAN CELL VOLUME 86.4 fl (80.0-105.0)
--- NOTE | 2018-05-28 10:24 | CP.PCM.PN ---
Subjective - Date & Time of Evaluation Date of Evaluation: 05/28/18 Time of Evaluation: 07:00 - Subjective Subjective: GENERAL SURGERY PROGRESS NOTE FOR DR. CROCKER Patient seen and examined at bedside in the TCU. She is doing well, ambulating with PT and was OOB to chair yesterday for the majority of the day. She is tolerating regular diet. She is having bowel function into her colostomy. It leaked last night and the ostomy device was reinforced with tape. She complains of some skin burning under her panus where there is a small area of skin break down. Objective - Vital Signs/Intake and Output Vital Signs (last 24 hours): Temp Pulse Resp BP Pulse Ox 98 F 99 H 20 113/76 99 05/28/18 07:38 05/28/18 09:17 05/28/18 07:38 05/28/18 07:38 05/28/18 07:38 Intake and Output: 05/28/18 05/28/18 06:59 18:59 Intake Total 70 Output Total 505 Balance -435 - Medications Medications: Current Medications Acetaminophen (Tylenol 325mg Tab) 650 mg PO Q4H PRN; Protocol PRN Reason: Pain, Mild (1-3) Last Admin: 05/26/18 17:33 Dose: 650 mg Albuterol/Ipratropium (Duoneb 3 Mg/0.5 Mg (3 Ml) Ud) 3 ml IH Q6H [facility]; Protocol Last Admin: 05/28/18 07:24 Dose: 3 ml Alprazolam (Xanax) 0.5 mg PO BID [facility]; Protocol Last Admin: 05/28/18 09:18 Dose: 0.5 mg Arformoterol Tartrate (Brovana) 15 mcg IH [id number] [facility]; Protocol Last Admin: 05/28/18 07:23 Dose: 15 mcg Benzocaine/Menthol (Cepacol Sore Throat) 1 milagros MT Q2H PRN; Protocol PRN Reason: Sore Throat Budesonide (Pulmicort Respules) 0.5 mg IH [id number] [facility]; Protocol Last Admin: 05/28/18 07:24 Dose: 0.5 mg Heparin Sodium (Porcine) (Heparin) 5,000 units SC Q8 [facility]; Protocol Last Admin: 05/28/18 05:33 Dose: 5,000 units Ketorolac Tromethamine (Toradol) 15 mg IVP Q6H [facility]; Protocol Stop: 05/28/18 15:01 Last Admin: 05/28/18 09:45 Dose: Not Given Lactobacillus Acidophilus (Bacid Acidophilus) 1 cap PO TID [facility]; Protocol Last Admin: 05/28/18 09:17 Dose: 1 cap Lisinopril (Zestril) 40 mg PO DAILY [facility]; Protocol Last Admin: 05/28/18 09:51 Dose: 40 mg Mesalamine (Asacol Hd 800mg) 1,600 mg PO TID [facility]; Protocol Last Admin: 05/28/18 09:16 Dose: 1,600 mg Metoclopramide HCl (Reglan) 10 mg PO 0600,1130,1630,2200 [facility] Last Admin: 05/28/18 06:55 Dose: 10 mg Metoprolol Tartrate (Lopressor) 50 mg PO BID [facility]; Protocol Last Admin: 05/28/18 09:17 Dose: 50 mg Nystatin (Nystop Topical Powder) 0 gm TOP BID [facility] Last Admin: 05/28/18 09:50 Dose: 1 appl Ondansetron HCl (Zofran Inj) 4 mg IVP Q6H PRN; Protocol PRN Reason: Nausea/Vomiting Oxycodone/Acetaminophen (Percocet 5/325 Mg Tab) 1 tab PO Q6H PRN PRN Reason: Pain, severe (8-10) Stop: 05/30/18 08:44 Last Admin: 05/28/18 09:22 Dose: 1 tab Pantoprazole Sodium (Protonix Ec Tab) 40 mg PO 0600 [facility] Last Admin: 05/28/18 05:33 Dose: 40 mg Potassium Chloride (Klor-Con 10) 10 meq PO 0800 [facility]; Protocol Last Admin: 05/28/18 09:17 Dose: 10 meq Pregabalin (Lyrica) 150 mg PO TID [facility]; Protocol Last Admin: 05/28/18 09:17 Dose: 150 mg Vancomycin HCl (Vancocin 25 Mg/Ml (Oral Use)) 250 mg PO QID [facility]; Protocol Last Admin: 05/28/18 09:18 Dose: 250 mg - Labs Labs: 05/28/18 06:30 05/28/18 06:30 - Constitutional Appears: Non-toxic, No Acute Distress - Head Exam Head Exam: ATRAUMATIC, NORMAL INSPECTION - Eye Exam Eye Exam: EOMI, Normal appearance - Respiratory Exam Respiratory Exam: NORMAL BREATHING PATTERN. absent: Respiratory Distress - Cardiovascular Exam Cardiovascular Exam: +S1, +S2 - GI/Abdominal Exam GI & Abdominal Exam: Soft. absent: Distended, Firm, Guarding, Rigid, Tenderness, Rebound Additional comments: Colostomy with liquid brown stool Tamara in place over midline incision Small superficial area of skin breakdown under panus on right side - Neurological Exam Neurological Exam: Alert, Awake, Oriented x3 - Psychiatric Exam Psychiatric exam: Normal Affect, Normal Mood - Skin Skin Exam: Dry, Normal Color Assessment and Plan - Assessment and Plan (Free Text) Assessment: 57yo F with rectosigmoid perforation s/p colostomy who is now POD#9 s/p Aric's procedure - Ordered Nystatin powder for under panus - Wound care nurse ordered for ostomy care due to leakage - Having bowel function into colostomy - Tolerating regular diet - Continue Abx for C diff per GI - Continue ambulation with PT and OOB - Strongly encouraged continued IS use - Continue DVT PPx w/ heparin - Discussed plan with Dr. Weston Gonzales PGY-4
--- NOTE | 2018-05-28 13:19 | PN ---
DATE: 05/28/2018 SUBJECTIVE: The patient is seen in TCU. She is sitting up in a chair. She is tolerating a diet. She denies any abdominal pain, nausea or vomiting. Her colostomy is functioning. A colostomy nurse was in the room with the patient. PHYSICAL EXAMINATION: VITAL SIGNS: Reveal a temperature of 98, blood pressure 113/76, heart rate 99. HEENT: Reveal sclerae to be white. Conjunctivae pink. NECK: Supple. CHEST: Lungs are clear. HEART: Reveals regular rate and rhythm. ABDOMEN: Obese, soft. There is a healing left lower quadrant incision. There is a left lower quadrant colostomy with stool. EXTREMITIES: Show no edema. LABORATORY DATA: White blood cell count 16.3. Chemistries reveal normal electrolytes. IMPRESSION: A 57-year-old female status post colonic perforation with a history of chronic ulcerative colitis, pseudomembranous colitis, status post Aric's procedure. The patient's white blood cell count this morning was elevated, etiology is unclear. RECOMMENDATIONS: 1. Continue p.o. vancomycin. 2. Follow CBC and white blood cell count. 3. Continue physical therapy for ambulation. Derek Rowland MD
--- NOTE | 2018-05-28 14:30 | PN ---
DATE: 05/28/2018 SUBJECTIVE: The patient is in bed in room 303. No fevers and no chills. No nausea or vomiting. PHYSICAL EXAMINATION VITAL SIGNS: On exam temperature is 98, blood pressure is 112/70 and respiration rate of 16. HEENT: Unremarkable. NECK: Supple. LUNGS: Have decreased breath sounds. HEART: Normal S1 and S2. ABDOMEN: Soft. LABORATORY EXAMINATION: Reveals the patient's white count of 16,300, hemoglobin of 11 and platelets of 565. Chemistries reveals a BUN of 6 and creatinine of 1.0. Microbiology is noted. ASSESSMENT AND PLAN: This is a 57-year-old female with a history of chronic obstructive lung disease and ulcerative colitis, fibromyalgia, parathyroid adenoma, hyperlipidemia who was admitted for colonoscopy of perforation and colostomy and exploratory lap and developed pseudomembranous colitis. Currently on p.o. vancomycin, to complete treatment with p.o. vancomycin. Aki Hooker MD
[2018-05-28] MEDS: Oxycodone/Acetaminophen 10/325 mg Tab PO PRN ×2 (14:49→21:57)
[2018-05-29] MEDS: Albuterol-Ipratrop 3 mg / 0.5 (3 ml) UD IH SCH ×6 (02:00→21:18)
[2018-05-29] MEDS: Pantoprazole 40 mg EC Tab PO SCH (05:43)
[2018-05-29] MEDS: Metoclopramide 5 mg/5 ml Oral Sol PO SCH ×4 (05:54→21:19)
[2018-05-29] MEDS: Arformoterol 15 mcg/2 ml Inh Sol IH SCH ×2 (07:27→21:17)
[2018-05-29] MEDS: Budesonide 0.5 mg/2 ml Inhal Susp UD IH SCH ×2 (07:28→21:17)
[2018-05-29 07:50] LABS: BASO # 0.07 K/mm3 (0.0-2.0); BASO % 0.5 % (0.0-3.0); EOS # 0.2 (0.0-0.7); EOS % 1.5 % (1.5-5.0); HEMOGLOBIN 9.8 g/dL (12.0-16.0); LYMPH # 2.9 (1.2-3.4); LYMPH % 18.9 % (22.0-35.0); MEAN CELL VOLUME 84.9 fl (80.0-105.0); MEAN CORPUSCULAR HEMOGLOBIN 26.9 pg (25.0-35.0); MEAN CORPUSCULAR HGB CONC 31.7 g/dl (31.0-37.0); MEAN PLATELET VOLUME 10.2 fl (7.0-11.0); MONO # 0.8 (0.1-0.6); MONO % 5.3 % (1.0-6.0); RBC 3.64 10^6/uL (3.5-6.1); RED CELL DISTRIBUTION WIDTH 16.4 % (11.5-14.5); WHITE BLOOD COUNT 15.4 10^3/uL (4.5-11.0)
[2018-05-29] MEDS: Potassium Chloride 10 mEq ER Tab PO SCH (08:11)
--- NOTE | 2018-05-29 08:25 | CP.PCM.PN ---
Subjective - Date & Time of Evaluation Date of Evaluation: 05/29/18 Time of Evaluation: 07:00 - Subjective Subjective: GENERAL SURGERY PROGRESS NOTE FOR DR. CROCKER Patient seen and examined at bedside in the TCU. Overnight, she had a temp of 101.2 for which she was given tylenol. Pt states that she feels warm. She is ambulating with walker and ambulating with PT. She is tolerating regular diet. She is having bowel function into her colostomy. Denies nausea or vomiting. Denies CP, SOB, coughing, dysuria, frequency. Objective - Vital Signs/Intake and Output Vital Signs (last 24 hours): Temp Pulse Resp BP Pulse Ox 101.2 F H 116 H 20 138/55 L 97 05/29/18 05:48 05/28/18 16:00 05/28/18 16:00 05/28/18 17:28 05/28/18 16:00 - Medications Medications: Current Medications Acetaminophen (Tylenol 325mg Tab) 650 mg PO Q4H PRN; Protocol PRN Reason: Pain, Mild (1-3) Last Admin: 05/29/18 05:48 Dose: 650 mg Albuterol/Ipratropium (Duoneb 3 Mg/0.5 Mg (3 Ml) Ud) 3 ml IH Q6H [facility]; Protocol Last Admin: 05/29/18 07:27 Dose: 3 ml Alprazolam (Xanax) 0.5 mg PO BID [facility]; Protocol Last Admin: 05/28/18 17:31 Dose: 0.5 mg Arformoterol Tartrate (Brovana) 15 mcg IH [id number] [facility]; Protocol Last Admin: 05/29/18 07:27 Dose: 15 mcg Benzocaine/Menthol (Cepacol Sore Throat) 1 milagros MT Q2H PRN; Protocol PRN Reason: Sore Throat Budesonide (Pulmicort Respules) 0.5 mg IH [id number] [facility]; Protocol Last Admin: 05/29/18 07:28 Dose: 0.5 mg Heparin Sodium (Porcine) (Heparin) 5,000 units SC Q8 [facility]; Protocol Last Admin: 05/29/18 05:43 Dose: 5,000 units Lactobacillus Acidophilus (Bacid Acidophilus) 1 cap PO TID [facility]; Protocol Last Admin: 05/28/18 17:28 Dose: 1 cap Lisinopril (Zestril) 40 mg PO DAILY [facility]; Protocol Last Admin: 05/28/18 09:51 Dose: 40 mg Mesalamine (Asacol Hd 800mg) 1,600 mg PO TID [facility]; Protocol Last Admin: 05/28/18 17:27 Dose: 1,600 mg Metoclopramide HCl (Reglan) 10 mg PO 0600,1130,1630,2200 [facility] Last Admin: 05/29/18 05:54 Dose: 10 mg Metoprolol Tartrate (Lopressor) 50 mg PO BID [facility]; Protocol Last Admin: 05/28/18 17:28 Dose: 50 mg Nystatin (Nystop Topical Powder) 0 gm TOP BID [facility] Last Admin: 05/28/18 17:28 Dose: 1 appl Ondansetron HCl (Zofran Inj) 4 mg IVP Q6H PRN; Protocol PRN Reason: Nausea/Vomiting Oxycodone/Acetaminophen (Percocet 10/325 Mg Tab) 1 tab PO Q6H PRN PRN Reason: severe pain (8-10) Last Admin: 05/28/18 21:57 Dose: 1 tab Pantoprazole Sodium (Protonix Ec Tab) 40 mg PO 0600 [facility] Last Admin: 05/29/18 05:43 Dose: 40 mg Potassium Chloride (Klor-Con 10) 10 meq PO 0800 [facility]; Protocol Last Admin: 05/29/18 08:11 Dose: 10 meq Pregabalin (Lyrica) 150 mg PO TID [facility]; Protocol Last Admin: 05/28/18 17:31 Dose: 150 mg Vancomycin HCl (Vancocin 25 Mg/Ml (Oral Use)) 250 mg PO QID [facility]; Protocol Last Admin: 05/28/18 21:59 Dose: 250 mg - Labs Labs: 05/29/18 06:30 05/28/18 06:30 - Constitutional Appears: Non-toxic, No Acute Distress - Head Exam Head Exam: ATRAUMATIC, NORMAL INSPECTION - Respiratory Exam Respiratory Exam: NORMAL BREATHING PATTERN. absent: Respiratory Distress - Cardiovascular Exam Cardiovascular Exam: +S1, +S2 - GI/Abdominal Exam GI & Abdominal Exam: Soft. absent: Distended, Firm, Guarding, Rigid, Tenderness, Rebound Additional comments: Tamara in place Colostomy in place - bag just emptied, no stool currently No erythema or induration - Neurological Exam Neurological Exam: Alert, Awake, Oriented x3 - Psychiatric Exam Psychiatric exam: Normal Affect, Normal Mood - Skin Skin Exam: Dry, Warm Assessment and Plan - Assessment and Plan (Free Text) Assessment: 57yo F with rectosigmoid perforation s/p colostomy who is POD#10 s/p Aric's procedure - Tmax 101.2, WBC 15.4, ID following - blood & urine cx ordered - Continue Abx for C diff - Having bowel function into colostomy - Tolerating regular diet - Continue ambulation with PT and OOB - Strongly encouraged continued IS use - Continue DVT PPx w/ heparin - Discussed plan with Dr. Weston Gonzales PGY-4
[2018-05-29] MEDS: Oxycodone/Acetaminophen 10/325 mg Tab PO PRN ×2 (08:45→21:23)
[2018-05-29] MEDS: Vancomycin 25 MG/ML PO SCH ×4 (09:25→21:19)
[2018-05-29] MEDS: Mesalamine 800 mg DR Tab PO SCH ×3 (09:26→18:33)
[2018-05-29] MEDS: Lactobacillus Acidophilus 500 MU Cap PO SCH ×3 (09:26→18:33)
[2018-05-29] MEDS: Nystatin 100,000 Units/gm Topical Pow(15 gm) TOP SCH ×2 (09:27→18:34)
--- NOTE | 2018-05-29 14:01 | PN ---
DATE: 05/29/2018 LOCATION: The patient is in room 303. SUBJECTIVE: The patient had a fever this morning of 101.2. She denies any worsening of diarrhea. No abdominal pain. No shortness of breath or cough. No pain in her legs. No nausea or vomiting other than the fever. She did have a heparin lock in her hand, on the right hand which was removed because of a malfunctioning. PHYSICAL EXAMINATION: VITAL SIGNS: Temperature is 101.2, blood pressure is 138/50, respiratory rate of 20, heart rate of 116. HEENT: Unremarkable. NECK: Supple. LUNGS: Decreased breath sounds. HEART: Normal S1, S2. ABDOMEN: Soft, nontender. EXTREMITIES: Examination of the right hand with the IV was ecchymotic, no discharge, mild erythema. LABORATORY DATA: Examination reveals a white count of 15,400, hemoglobin of 9, platelets are noted. BUN 6, creatinine 1. ASSESSMENT AND PLAN: A 57-year-old female who was seen in transitional care with a history of chronic obstructive lung disease, ulcerative colitis, fibromyalgia, parathyroid adenoma, hyperlipidemia was admitted for colonoscopy, developed complications of colonoscopy of perforation requiring colostomy and exploratory laparotomy, developed pseudomembranous colitis, now has new fevers and tachycardia, leukocytosis with systemic inflammatory response syndrome. We will repeat blood cultures, urine cultures, sputum cultures, and a chest x-ray. In no obvious source, we will hold off on any antibiotics for now. Discussed with the staff regarding possible CAT scan of the abdomen to rule out an abscess. He is postoperative day #6. We will follow with you. Aki Hooker MD
--- NOTE | 2018-05-29 15:16 | RAD ---
Date of service: 05/29/2018 HISTORY: Fever COMPARISON: Comparison chest dated 05/22/2018 TECHNIQUE: Chest PA and lateral views FINDINGS: LUNGS: Poor inspiration with low lung volumes, crowded bronchovascular markings with mild bibasilar atelectasis left greater than right PLEURA: No significant pleural effusion identified. No pneumothorax apparent. Suspect minor biapical pleural thickening CARDIOVASCULAR: No aortic atherosclerotic calcification present. Normal cardiac size. No pulmonary vascular congestion. OSSEOUS STRUCTURES: No significant abnormalities. VISUALIZED UPPER ABDOMEN: Normal. OTHER FINDINGS: Interval removal previously noted in situ NGT IMPRESSION: Mild bibasilar atelectasis left greater than right
[2018-05-29 16:51] LABS: URINE BILIRUBIN NEGATIVE (NEGATIVE); URINE BLOOD NEGATIVE (NEGATIVE); URINE GLUCOSE (UA) NEGATIVE (NEGATIVE); URINE LEUKOCYTE ESTERASE NEGATIVE Leu/uL (NEGATIVE); URINE PROTEIN 100 mg/dL (<30 mg/dL); URINE UROBILINOGEN 0.2 E.U./dL (<1 E.U./dL)
[2018-05-29 16:52] LABS: URINE APPEARANCE CLEAR (CLEAR)
[2018-05-29] MEDS: Piperacill/Tazo 4.5gm in NS 4.5 GM/100 ML BAG IVPB SCH (21:18)
[2018-05-30] MEDS: Albuterol-Ipratrop 3 mg / 0.5 (3 ml) UD IH SCH ×5 (01:59→19:59)
[2018-05-30] MEDS: Piperacill/Tazo 4.5gm in NS 4.5 GM/100 ML BAG IVPB SCH ×3 (06:03→21:12)
[2018-05-30] MEDS: Pantoprazole 40 mg EC Tab PO SCH (06:04)
[2018-05-30] MEDS: Metoclopramide 5 mg/5 ml Oral Sol PO SCH (06:05)
[2018-05-30] MEDS: Arformoterol 15 mcg/2 ml Inh Sol IH SCH ×2 (07:11→19:59)
[2018-05-30] MEDS: Budesonide 0.5 mg/2 ml Inhal Susp UD IH SCH ×2 (07:11→19:59)
[2018-05-30 07:44] LABS: BASO # 0.05 K/mm3 (0.0-2.0); BASO % 0.3 % (0.0-3.0); BLOOD UREA NITROGEN 6 mg/dL (7-21); CALCIUM 8.1 mg/dL (8.4-10.5); EOS # 0.2 (0.0-0.7); EOS % 1.6 % (1.5-5.0); GFR NON-AFRICAN AMERICAN 57; LYMPH # 2.6 (1.2-3.4); LYMPH % 17.1 % (22.0-35.0); MEAN CELL VOLUME 85.1 fl (80.0-105.0); MEAN CORPUSCULAR HEMOGLOBIN 27.1 pg (25.0-35.0); MEAN CORPUSCULAR HGB CONC 31.8 g/dl (31.0-37.0); MEAN PLATELET VOLUME 10.7 fl (7.0-11.0); MONO # 1.1 (0.1-0.6); MONO % 7.2 % (1.0-6.0); RBC 3.69 10^6/uL (3.5-6.1); RED CELL DISTRIBUTION WIDTH 16.3 % (11.5-14.5)
[2018-05-30] MEDS: Potassium Chloride 10 mEq ER Tab PO SCH (07:48)
[2018-05-30] MEDS: Vancomycin 25 MG/ML PO SCH ×4 (09:55→21:14)
[2018-05-30] MEDS: Mesalamine 800 mg DR Tab PO SCH ×3 (09:56→18:24)
[2018-05-30] MEDS: Lactobacillus Acidophilus 500 MU Cap PO SCH ×3 (09:56→18:24)
[2018-05-30] MEDS: Nystatin 100,000 Units/gm Topical Pow(15 gm) TOP SCH ×2 (09:57→18:27)
[2018-05-30] MEDS: Vancomycin 750mg 750 MG/250 ML BAG IVPB SCH ×3 (10:30→21:12)
--- NOTE | 2018-05-30 12:21 | CP.PCM.PN ---
Subjective - Date & Time of Evaluation Date of Evaluation: 05/30/18 Time of Evaluation: 07:00 - Subjective Subjective: GENERAL SURGERY PROGRESS NOTE FOR DR. CROCKER Patient seen and examined at bedside in the TCU. This AM, she had a temp of 101.1 (Tmax 101.8) for which she was given tylenol. She is tolerating regular diet. She is having bowel function into her colostomy and changing it with help from the nurses. She is using her IS. Denies nausea or vomiting. Denies CP, SOB, coughing, dysuria, frequency. Objective - Vital Signs/Intake and Output Vital Signs (last 24 hours): Temp Pulse Resp BP Pulse Ox 101.1 F H 125 H 20 102/65 95 05/30/18 06:04 05/30/18 09:57 05/29/18 10:00 05/30/18 09:57 05/29/18 10:00 Intake and Output: 05/30/18 05/30/18 06:59 18:59 Intake Total 420 Output Total 450 Balance -30 - Medications Medications: Current Medications Acetaminophen (Tylenol 325mg Tab) 650 mg PO Q4H PRN; Protocol PRN Reason: Pain, Mild (1-3) Last Admin: 05/30/18 06:04 Dose: 650 mg Acetaminophen (Tylenol 325mg Tab) 650 mg PO Q4H PRN; Protocol PRN Reason: temp >101 Albuterol/Ipratropium (Duoneb 3 Mg/0.5 Mg (3 Ml) Ud) 3 ml IH Q6H [facility]; Protocol Last Admin: 05/30/18 07:11 Dose: 3 ml Alprazolam (Xanax) 0.5 mg PO BID [facility]; Protocol Last Admin: 05/30/18 09:56 Dose: 0.5 mg Arformoterol Tartrate (Brovana) 15 mcg IH [id number] [facility]; Protocol Last Admin: 05/30/18 07:11 Dose: 15 mcg Benzocaine/Menthol (Cepacol Sore Throat) 1 milagros MT Q2H PRN; Protocol PRN Reason: Sore Throat Budesonide (Pulmicort Respules) 0.5 mg IH [id number] [facility]; Protocol Last Admin: 05/30/18 07:11 Dose: 0.5 mg Heparin Sodium (Porcine) (Heparin) 5,000 units SC Q8 [facility]; Protocol Last Admin: 05/30/18 06:03 Dose: 5,000 units Piperacillin Sod/Tazobactam Sod (Zosyn 4.5 Gm In Ns 100ml) 4.5 gm in 100 mls @ 25 mls/hr IVPB Q8 [facility]; Protocol Stop: 06/01/18 09:59 Last Admin: 05/30/18 06:03 Dose: 25 mls/hr Vancomycin HCl (Vancomycin 750 Mg In Ns) 750 mg in 250 mls @ 167 mls/hr IVPB Q12H [facility]; Protocol Stop: 06/08/18 10:01 Last Admin: 05/30/18 10:30 Dose: Not Given Lactobacillus Acidophilus (Bacid Acidophilus) 1 cap PO TID [facility]; Protocol Last Admin: 05/30/18 09:56 Dose: 1 cap Lisinopril (Zestril) 40 mg PO DAILY [facility]; Protocol Last Admin: 05/30/18 09:57 Dose: 40 mg Mesalamine (Asacol Hd 800mg) 1,600 mg PO TID [facility]; Protocol Last Admin: 05/30/18 09:56 Dose: 1,600 mg Metoprolol Tartrate (Lopressor) 50 mg PO BID [facility]; Protocol Last Admin: 05/30/18 09:57 Dose: 50 mg Nystatin (Nystop Topical Powder) 0 gm TOP BID [facility] Last Admin: 05/30/18 09:57 Dose: 1 appl Ondansetron HCl (Zofran Inj) 4 mg IVP Q6H PRN; Protocol PRN Reason: Nausea/Vomiting Oxycodone/Acetaminophen (Percocet 10/325 Mg Tab) 1 tab PO Q6H PRN PRN Reason: severe pain (8-10) Last Admin: 05/29/18 21:23 Dose: 1 tab Pantoprazole Sodium (Protonix Ec Tab) 40 mg PO 0600 [facility] Last Admin: 05/30/18 06:04 Dose: 40 mg Potassium Chloride (Klor-Con 10) 10 meq PO 0800 [facility]; Protocol Last Admin: 05/30/18 07:48 Dose: 10 meq Pregabalin (Lyrica) 150 mg PO TID [facility]; Protocol Last Admin: 05/30/18 09:57 Dose: 150 mg Vancomycin HCl (Vancocin 25 Mg/Ml (Oral Use)) 250 mg PO QID [facility]; Protocol Last Admin: 05/30/18 09:55 Dose: 250 mg - Labs Labs: 05/30/18 06:30 05/30/18 06:30 - Constitutional Appears: Non-toxic, No Acute Distress - Head Exam Head Exam: ATRAUMATIC, NORMAL INSPECTION - Eye Exam Eye Exam: EOMI, Normal appearance - Respiratory Exam Respiratory Exam: NORMAL BREATHING PATTERN. absent: Respiratory Distress - Cardiovascular Exam Cardiovascular Exam: +S1, +S2 - GI/Abdominal Exam GI & Abdominal Exam: Soft. absent: Distended, Firm, Guarding, Rigid, Tender ness, Rebound Additional comments: Colostomy with liquid stool in bag Tamara in place - Extremities Exam Extremities Exam: Normal Inspection. absent: Calf Tenderness - Neurological Exam Neurological Exam: Alert, Awake, Oriented x3 - Psychiatric Exam Psychiatric exam: Normal Affect, Normal Mood - Skin Skin Exam: Dry, Normal Color, Warm Assessment and Plan - Assessment and Plan (Free Text) Assessment: 57yo F with rectosigmoid perforation s/p colostomy who is POD#11 s/p Aric's procedure - Tmax 101.8, WBC 15.0, ID following - started pt on Zosyn - Blood cx: no growth @ 24 hrs - FU urine cx - Continue Abx for C diff - Having bowel function into colostomy - Tolerating regular diet - Continue ambulation with PT and OOB - Strongly encouraged continued IS use - Continue DVT PPx w/ heparin - Discussed plan with Dr. Weston Gonzales PGY-4
[2018-05-30] MEDS: Oxycodone/Acetaminophen 10/325 mg Tab PO PRN ×2 (13:35→21:18)
--- NOTE | 2018-05-30 14:50 | PN ---
DATE: 05/30/2018 SUBJECTIVE: The patient seen earlier today in room 303. She is still having fevers but not toxic. No chest pain. No abdominal pain. PHYSICAL EXAMINATION: VITAL SIGNS: Temperature is 101.1, heart rate of 108, blood pressure is 143/80, respiratory rate of 20. HEENT: Unremarkable. NECK: Supple. LUNGS: Have decreased breath sounds. HEART: Normal S1, S2. ABDOMEN: Soft, nontender. The wound is clean. LABORATORY DATA: Laboratory examination reveals a white count of 15,000, hemoglobin of 10, platelets of 628, BUN of 6, creatinine of 1. Procalcitonin is 0.12. Urinalysis is noted. Microbiology is pending and blood culture is pending. Urine culture is pending. Sputum culture is pending. The patient is currently on p.o. vancomycin and IV Zosyn. The patient's chest x-ray that was done yesterday by Dr. Frederick, atelectasis is reviewed. The patient's MRSA screen on 05/19/2018 was negative. The patient also had a CAT scan of the abdomen and pelvis. The results are pending. ASSESSMENT AND PLAN: This is a 57-year-old female with transitional care, history of chronic obstructive lung disease, ulcerative colitis, fibromyalgia, parathyroid adenoma, hyperlipidemia. Admitted for colonoscopy, developed complications of colonoscopy, perforation, required a colostomy and exploratory laparotomy, developed pseudomembranous colitis, now has systemic inflammatory response syndrome with tachycardia, leukocytosis and new fevers, awaiting blood and urine cultures and chest x-ray appears to be negative, awaiting a CAT scan of the abdomen and pelvis, today is postoperative day #7. We will add vancomycin to the Zosyn IV in addition to the p.o. vancomycin which is for the C. diff. We will make further recommendations. We will follow closely with you. Aki Hooker MD
--- NOTE | 2018-05-30 17:18 | PN ---
DATE: 05/30/2018 SUBJECTIVE: The patient is in bed, comfortable. She has been spiking temperatures to 101 range over the last 24 hours. She is postop day #11. She denies any nausea, vomiting, abdominal pain. She is producing stool throughout the colostomy without blood. OBJECTIVE: VITAL SIGNS: Reveal a temperature of 101.1 this morning, blood pressure 102/65, heart rate of 125. HEENT: Reveals sclerae to be white. Conjunctivae are pink. NECK: Supple. CHEST: Reveal lungs to be clear. HEART: Reveals regular rate and rhythm. ABDOMEN: Soft, obese, and nontender. She has a incision which is healing nicely without drainage. She has left lower quadrant colostomy producing stool. EXTREMITIES: Show no edema. LABORATORY DATA: Revealed white blood cell count of 15 and hemoglobin of 10. Chemistries revealed normal electrolytes. Procalcitonin is low at 0.12. A CT scan of the abdomen and pelvis without IV contrast revealed no abscess or fluid collections throughout the abdomen. There are some postsurgical changes in the abdominal wall. IMPRESSION: A 57-year-old female status post perforation during colonoscopy with a history of chronic ulcerative colitis, recently diagnosed with pseudomembranous colitis, status post sigmoid resection and diverting colostomy with a postop fever approximately 10 days after her surgery. A CT scan of the abdomen and pelvis did not reveal any fluid collections or abscess. The patient has been started on Zosyn by Infectious Disease. RECOMMENDATIONS: 1. Continue broad-spectrum antibiotics. Note; blood cultures were negative after 24 hours. 2. We will stop Reglan. If fevers continue, may consider stopping Asacol HD. Derek Rowland MD [facility]
[2018-05-31] MEDS: Piperacill/Tazo 4.5gm in NS 4.5 GM/100 ML BAG IVPB SCH ×3 (05:12→21:41)
[2018-05-31] MEDS: Pantoprazole 40 mg EC Tab PO SCH (05:14)
[2018-05-31] MEDS: Oxycodone/Acetaminophen 10/325 mg Tab PO PRN ×2 (05:40→18:01)
[2018-05-31 07:19] LABS: BASO # 0.07 K/mm3 (0.0-2.0); BASO % 0.5 % (0.0-3.0); EOS # 0.3 (0.0-0.7); EOS % 2.1 % (1.5-5.0); HEMOGLOBIN 8.9 g/dL (12.0-16.0); LYMPH # 2.2 (1.2-3.4); LYMPH % 16.1 % (22.0-35.0); MEAN CELL VOLUME 84.8 fl (80.0-105.0); MEAN CORPUSCULAR HEMOGLOBIN 26.6 pg (25.0-35.0); MEAN CORPUSCULAR HGB CONC 31.3 g/dl (31.0-37.0); MONO # 0.9 (0.1-0.6); MONO % 6.8 % (1.0-6.0); RBC 3.35 10^6/uL (3.5-6.1); RED CELL DISTRIBUTION WIDTH 16.4 % (11.5-14.5); WHITE BLOOD COUNT 13.7 10^3/uL (4.5-11.0)
[2018-05-31] MEDS: Arformoterol 15 mcg/2 ml Inh Sol IH SCH ×2 (07:32→22:19)
[2018-05-31] MEDS: Albuterol-Ipratrop 3 mg / 0.5 (3 ml) UD IH SCH ×4 (07:32→22:21)
[2018-05-31] MEDS: Budesonide 0.5 mg/2 ml Inhal Susp UD IH SCH (07:32)
[2018-05-31] MEDS: Potassium Chloride 10 mEq ER Tab PO SCH (08:12)
--- NOTE | 2018-05-31 08:57 | CP.PCM.PN ---
Subjective - Date & Time of Evaluation Date of Evaluation: 05/31/18 Time of Evaluation: 07:35 - Subjective Subjective: General surgery progress note for Dr. John Paul Ruth PGY-2 Pt seen/examined at bedside Pt currently receiving breathing treatment. Tolerating diet. Continues to have fevers, Tmax 102.6 over past 24 hrs. Abdominal pain well controlled. Having liquid stool output to ostomy. Denies N & V, cough, dysuria, other complaints. Is using IS and OOBTC. Objective - Vital Signs/Intake and Output Vital Signs (last 24 hours): Temp Pulse Resp BP Pulse Ox 100.2 F H 113 H 18 137/83 98 05/31/18 06:00 05/31/18 06:00 05/31/18 06:00 05/31/18 06:00 05/31/18 06:00 Intake and Output: 05/31/18 05/31/18 06:59 18:59 Intake Total 540 Output Total 500 Balance 40 - Medications Medications: Current Medications Acetaminophen (Tylenol 325mg Tab) 650 mg PO Q4H PRN; Protocol PRN Reason: Pain, Mild (1-3) Last Admin: 05/30/18 06:04 Dose: 650 mg Acetaminophen (Tylenol 325mg Tab) 650 mg PO Q4H PRN; Protocol PRN Reason: temp >101 Last Admin: 05/30/18 16:51 Dose: 650 mg Albuterol/Ipratropium (Duoneb 3 Mg/0.5 Mg (3 Ml) Ud) 3 ml IH Q6H [facility]; Protocol Last Admin: 05/31/18 07:32 Dose: 3 ml Alprazolam (Xanax) 0.5 mg PO BID [facility]; Protocol Last Admin: 05/30/18 18:26 Dose: 0.5 mg Arformoterol Tartrate (Brovana) 15 mcg IH [id number] [facility]; Protocol Last Admin: 05/31/18 07:32 Dose: 15 mcg Benzocaine/Menthol (Cepacol Sore Throat) 1 milagros MT Q2H PRN; Protocol PRN Reason: Sore Throat Budesonide (Pulmicort Respules) 0.5 mg IH [id number] [facility]; Protocol Last Admin: 05/31/18 07:32 Dose: 0.5 mg Heparin Sodium (Porcine) (Heparin) 5,000 units SC Q8 [facility]; Protocol Last Admin: 05/31/18 05:12 Dose: 5,000 units Piperacillin Sod/Tazobactam Sod (Zosyn 4.5 Gm In Ns 100ml) 4.5 gm in 100 mls @ 25 mls/hr IVPB Q8 [facility]; Protocol Stop: 06/01/18 09:59 Last Admin: 05/31/18 05:12 Dose: 25 mls/hr Vancomycin HCl (Vancomycin 750 Mg In Ns) 750 mg in 250 mls @ 167 mls/hr IVPB Q12H [facility]; Protocol Stop: 06/08/18 10:01 Last Admin: 05/30/18 21:12 Dose: 167 mls/hr Lactobacillus Acidophilus (Bacid Acidophilus) 1 cap PO TID [facility]; Protocol Last Admin: 05/30/18 18:24 Dose: 1 cap Lisinopril (Zestril) 40 mg PO DAILY [facility]; Protocol Last Admin: 05/30/18 09:57 Dose: 40 mg Mesalamine (Asacol Hd 800mg) 1,600 mg PO TID [facility]; Protocol Last Admin: 05/30/18 18:24 Dose: 1,600 mg Metoprolol Tartrate (Lopressor) 50 mg PO BID [facility]; Protocol Last Admin: 05/30/18 18:24 Dose: 50 mg Nystatin (Nystop Topical Powder) 0 gm TOP BID [facility] Last Admin: 05/30/18 18:27 Dose: 1 appl Ondansetron HCl (Zofran Inj) 4 mg IVP Q6H PRN; Protocol PRN Reason: Nausea/Vomiting Oxycodone/Acetaminophen (Percocet 10/325 Mg Tab) 1 tab PO Q6H PRN PRN Reason: severe pain (8-10) Last Admin: 05/31/18 05:40 Dose: 1 tab Pantoprazole Sodium (Protonix Ec Tab) 40 mg PO 0600 [facility] Last Admin: 05/31/18 05:14 Dose: 40 mg Potassium Chloride (Klor-Con 10) 10 meq PO 0800 [facility]; Protocol Last Admin: 05/31/18 08:12 Dose: 10 meq Pregabalin (Lyrica) 150 mg PO TID [facility]; Protocol Last Admin: 05/30/18 18:24 Dose: 150 mg Vancomycin HCl (Vancocin 25 Mg/Ml (Oral Use)) 250 mg PO QID [facility]; Protocol Last Admin: 05/30/18 21:14 Dose: 250 mg - Labs Labs: 05/31/18 07:00 05/30/18 06:30 - Constitutional Appears: Non-toxic, No Acute Distress - Head Exam Head Exam: ATRAUMATIC, NORMAL INSPECTION, NORMOCEPHALIC - Eye Exam Eye Exam: EOMI, Normal appearance - ENT Exam ENT Exam: Mucous Membranes Moist, Normal Exam - Respiratory Exam Respiratory Exam: NORMAL BREATHING PATTERN - Cardiovascular Exam Cardiovascular Exam: REGULAR RHYTHM - GI/Abdominal Exam GI & Abdominal Exam: Soft. absent: Distended (obese), Firm, Guarding, Rigid, Tenderness, Hernia Additional comments: ostomy with dark brown stool output - Neurological Exam Neurological Exam: Alert, Awake, CN II-XII Intact, Oriented x3 - Psychiatric Exam Psychiatric exam: Normal Affect, Normal Mood - Skin Skin Exam: Dry, Intact, Normal Color, Warm (very warm to touch, not diaphoretic) Assessment and Plan - Assessment and Plan (Free Text) Assessment: 57F POD#12 s/p colostomy creation and Aric's procedure due to rectosigmoid perforation now in TCU for rehab Plan: FU merchant cultures Blood culture neg x 24hrs Urine cx Still on Abx for C diff Cont to monitor ostomy output Cont reg diet OOBTC PT Encourage IS use DVT ppx w/Heparin Further care as per primary team FU official read of CT A/P ID following Will JAYDEN Ruth, PGY-2
[2018-05-31] MEDS: Mesalamine 800 mg DR Tab PO SCH ×3 (10:08→17:55)
[2018-05-31] MEDS: Lactobacillus Acidophilus 500 MU Cap PO SCH ×3 (10:09→17:56)
[2018-05-31] MEDS: Nystatin 100,000 Units/gm Topical Pow(15 gm) TOP SCH ×2 (10:10→18:02)
[2018-05-31] MEDS: Vancomycin 750mg 750 MG/250 ML BAG IVPB SCH ×2 (10:11→21:41)
[2018-05-31] MEDS: Vancomycin 25 MG/ML PO SCH ×4 (10:11→21:40)
--- NOTE | 2018-05-31 15:12 | PN ---
DATE: 05/31/2018 SUBJECTIVE: The patient is sitting in a chair. She is ambulating the yuri's She feels generally well. She had a low grade temperature to 100 this morning T-max was 102.6 yesterday. She denies any abdominal pain, nausea, vomiting. OBJECTIVE: VITAL SIGNS: Reveal temperature of 100.2, blood pressure 118/78, heart rate of 110. HEENT: Reveals sclerae to be white. Conjunctivae pink. NECK: Supple. CHEST: Lungs are clear. HEART: Reveals regular rate and rhythm. ABDOMEN: Soft. There is a healing surgical incision on the left lower quadrant. She has a left lower quadrant colostomy producing brownish stool. EXTREMITIES: Show no edema. LABORATORY DATA: Reveal white blood cell count 13.7, hemoglobin 8.9, platelet count 605,000. Potassium of 3.7. Bicarb of 26. IMPRESSION: This 57-year-old female with systemic inflammatory response syndrome with fever and white count which are improving. CT scan of the abdomen and pelvis 2 days ago was negative for abscess. She is status post sigmoid perforation during colonoscopy with a history of chronic ulcerative colitis and pseudomembranous colitis. RECOMMENDATIONS: 1. Continue close observation. 2. Continue Zosyn. 3. Continue vancomycin 250 mg p.o. four times a day. 4. Continue Asacol HD 1600 mg three times a day. 5. I will start the patient on iron. Derek Rowland MD
[2018-06-01] MEDS: Albuterol-Ipratrop 3 mg / 0.5 (3 ml) UD IH SCH ×5 (03:23→22:42)
[2018-06-01] MEDS: Pantoprazole 40 mg EC Tab PO SCH (05:19)
[2018-06-01] MEDS: Piperacill/Tazo 4.5gm in NS 4.5 GM/100 ML BAG IVPB SCH ×3 (05:20→22:17)
[2018-06-01] MEDS: Arformoterol 15 mcg/2 ml Inh Sol IH SCH ×2 (07:11→19:51)
[2018-06-01] MEDS: Budesonide 0.5 mg/2 ml Inhal Susp UD IH SCH ×2 (07:12→19:51)
[2018-06-01 07:28] LABS: BASO # 0.06 K/mm3 (0.0-2.0); BASO % 0.6 % (0.0-3.0); EOS # 0.2 (0.0-0.7); EOS % 2.1 % (1.5-5.0); HEMOGLOBIN 8.3 g/dL (12.0-16.0); LYMPH # 2.1 (1.2-3.4); LYMPH % 21.7 % (22.0-35.0); MEAN CELL VOLUME 84.6 fl (80.0-105.0); MEAN CORPUSCULAR HEMOGLOBIN 26.7 pg (25.0-35.0); MEAN CORPUSCULAR HGB CONC 31.6 g/dl (31.0-37.0); MEAN PLATELET VOLUME 9.7 fl (7.0-11.0); MONO # 0.9 (0.1-0.6); RBC 3.11 10^6/uL (3.5-6.1); RED CELL DISTRIBUTION WIDTH 16.5 % (11.5-14.5); WHITE BLOOD COUNT 9.6 10^3/uL (4.5-11.0)
[2018-06-01] MEDS: Potassium Chloride 10 mEq ER Tab PO SCH (08:08)
[2018-06-01] MEDS: Vancomycin 750mg 750 MG/250 ML BAG IVPB SCH (10:09)
[2018-06-01] MEDS: Lactobacillus Acidophilus 500 MU Cap PO SCH ×3 (10:10→18:47)
[2018-06-01] MEDS: Mesalamine 800 mg DR Tab PO SCH ×3 (10:10→18:47)
[2018-06-01] MEDS: Vancomycin 25 MG/ML PO SCH ×4 (10:11→22:16)
[2018-06-01] MEDS: Nystatin 100,000 Units/gm Topical Pow(15 gm) TOP SCH ×2 (10:11→18:49)
--- NOTE | 2018-06-01 12:57 | PN ---
DATE: 05/31/2018 DAILY PROGRESS NOTE SUBJECTIVE: The patient is a 57-year-old female with a history of ulcerative colitis who suffered a perforated viscus during colonoscopy. She was admitted to the intensive care unit of the [facility] (formerly [facility]) where she was followed by Dr. Ontiveros, her Surgeon; Dr. Hooker, the Infectious Disease specialist; Dr. Rowland,her Appeals [employer] Associate Justice. The patient did well; however, her antibiotics had to be discontinued and switched to vancomycin, because of the development of Clostridium difficile pseudomembranous colitis. The patient did well on the medical floor and was transferred to the Transitional Care Unit on 05/26/2018 for physical therapy and further antibiotic treatments. On the Transitional Care Unit, the patient is doing very well. She is seen sitting in a chair at bedside. She is awake, alert and oriented. She has no complaints. She denies any abdominal pain. Her ostomy is working well and the patient is learning to change the bags, there is some difficulty with the hospital supply of wafers for her ostomy. She does complain of some slight itching from the surgical sites. Her wounds appear clean and there were no signs of infection. To date, the blood culture have been negative. Her white blood cell count is trending downward; however, quite slowly from 15.4 to 13.7 over three-day. When seen this morning, her hemoglobin and hematocrit 8.8 and 28.4 respectively and platelet count 604. Blood cultures have been negative; however, the patient has been running intermittent fevers, her temperature was 100.2 this morning with a heart rate of 113 and blood pressure 137/83. CAT scan was performed over the weekend with oral contrast, report is not yet available. We will continue to follow the patient closely searching for possible occult area of infection, possible intraabdominal abscess, which developed postoperatively and we are encouraging physical therapy. Kane Langley MD
[2018-06-01] MEDS: Oxycodone/Acetaminophen 10/325 mg Tab PO PRN (16:48)
--- NOTE | 2018-06-01 17:52 | CP.PCM.PN ---
Subjective - Date & Time of Evaluation Date of Evaluation: 06/01/18 Time of Evaluation: 07:00 - Subjective Subjective: GENERAL SURGERY PROGRESS NOTE FOR DR. CROCKER Patient seen and examined at bedside in the TCU. She has not had any more fevers. She is doing well, eager to go home. She is having output into her colostomy. She denies nausea or vomiting. She is walking without a walker. Objective - Vital Signs/Intake and Output Vital Signs (last 24 hours): Temp Pulse Resp BP Pulse Ox 100.4 F H 111 H 18 105/65 96 06/01/18 16:00 06/01/18 16:00 06/01/18 16:00 06/01/18 16:00 06/01/18 16:00 Intake and Output: 06/01/18 06/01/18 06:59 18:59 Intake Total 360 Output Total 5 Balance 355 - Medications Medications: Current Medications Acetaminophen (Tylenol 325mg Tab) 650 mg PO Q4H PRN; Protocol PRN Reason: Pain, Mild (1-3) Last Admin: 05/31/18 13:32 Dose: 650 mg Acetaminophen (Tylenol 325mg Tab) 650 mg PO Q4H PRN; Protocol PRN Reason: temp >101 Last Admin: 05/30/18 16:51 Dose: 650 mg Albuterol/Ipratropium (Duoneb 3 Mg/0.5 Mg (3 Ml) Ud) 3 ml IH Q6H [facility]; Protocol Last Admin: 06/01/18 13:17 Dose: 3 ml Alprazolam (Xanax) 0.5 mg PO BID [facility]; Protocol Last Admin: 06/01/18 10:11 Dose: 0.5 mg Arformoterol Tartrate (Brovana) 15 mcg IH [id number] [facility]; Protocol Last Admin: 06/01/18 07:11 Dose: 15 mcg Benzocaine/Menthol (Cepacol Sore Throat) 1 milagros MT Q2H PRN; Protocol PRN Reason: Sore Throat Budesonide (Pulmicort Respules) 0.5 mg IH [id number] [facility]; Protocol Last Admin: 06/01/18 07:12 Dose: 0.5 mg Ferrous Sulfate (Feosol) 324 mg PO TID [facility] Last Admin: 06/01/18 15:38 Dose: 324 mg Heparin Sodium (Porcine) (Heparin) 5,000 units SC Q8 [facility]; Protocol Last Admin: 06/01/18 15:49 Dose: 5,000 units Piperacillin Sod/Tazobactam Sod (Zosyn 4.5 Gm In Ns 100ml) 4.5 gm in 100 mls @ 25 mls/hr IVPB Q8 [facility]; Protocol Stop: 06/05/18 22:01 Last Admin: 06/01/18 15:39 Dose: 25 mls/hr Vancomycin HCl (Vancomycin 750 Mg In Ns) 750 mg in 250 mls @ 167 mls/hr IVPB Q1 2H [facility]; Protocol Stop: 06/08/18 10:01 Last Admin: 06/01/18 10:09 Dose: 167 mls/hr Lactobacillus Acidophilus (Bacid Acidophilus) 1 cap PO TID [facility]; Protocol Last Admin: 06/01/18 15:37 Dose: 1 cap Lisinopril (Zestril) 40 mg PO DAILY [facility]; Protocol Last Admin: 06/01/18 10:12 Dose: 40 mg Mesalamine (Asacol Hd 800mg) 1,600 mg PO TID [facility]; Protocol Last Admin: 06/01/18 15:37 Dose: 1,600 mg Metoprolol Tartrate (Lopressor) 50 mg PO BID [facility]; Protocol Last Admin: 06/01/18 10:10 Dose: 50 mg Nystatin (Nystop Topical Powder) 0 gm TOP BID [facility] Last Admin: 06/01/18 10:11 Dose: 1 appl Ondansetron HCl (Zofran Inj) 4 mg IVP Q6H PRN; Protocol PRN Reason: Nausea/Vomiting Oxycodone/Acetaminophen (Percocet 10/325 Mg Tab) 1 tab PO Q6H PRN; Protocol PRN Reason: Pain, severe (8-10) Last Admin: 06/01/18 16:48 Dose: 1 tab Pantoprazole Sodium (Protonix Ec Tab) 40 mg PO 0600 [facility] Last Admin: 06/01/18 05:19 Dose: 40 mg Potassium Chloride (Klor-Con 10) 10 meq PO 0800 [facility]; Protocol Last Admin: 06/01/18 08:08 Dose: 10 meq Pregabalin (Lyrica) 150 mg PO TID [facility]; Protocol Last Admin: 06/01/18 15:50 Dose: 150 mg Vancomycin HCl (Vancocin 25 Mg/Ml (Oral Use)) 250 mg PO QID [facility]; Protocol Last Admin: 06/01/18 15:38 Dose: 250 mg - Labs Labs: 06/01/18 07:00 05/30/18 06:30 - Constitutional Appears: Non-toxic, No Acute Distress - Head Exam Head Exam: ATRAUMATIC, NORMAL INSPECTION - Eye Exam Eye Exam: EOMI, Normal appearance - Respiratory Exam Respiratory Exam: NORMAL BREATHING PATTERN. absent: Respiratory Distress - Cardiovascular Exam Cardiovascular Exam: +S1, +S2 - GI/Abdominal Exam GI & Abdominal Exam: Soft. absent: Distended, Firm, Guarding, Rigid, Tenderness, Rebound Additional comments: Tamara in place Colostomy with liquid stool - Neurological Exam Neurological Exam: Alert, Awake, Oriented x3 - Psychiatric Exam Psychiatric exam: Normal Affect, Normal Mood - Skin Skin Exam: Dry, Normal Color, Warm Assessment and Plan - Assessment and Plan (Free Text) Assessment: 57yo F with rectosigmoid perforation s/p colostomy who is POD#13 s/p Aric's procedure - Afebrile, leukocytosis resolved - Blood cx: no growth @ 3 days, urine cx negative - Continue Abx as per ID - Having bowel function into colostomy - Tolerating regular diet - Continue ambulation with PT and OOB - Strongly encouraged continued IS use - Continue DVT PPx w/ heparin - Discussed plan with Dr. Weston Gonzales PGY-4
--- NOTE | 2018-06-01 21:23 | CP.PCM.PN ---
Subjective - Date & Time of Evaluation Date of Evaluation: 05/31/18 Time of Evaluation: 08:35 - Subjective Subjective: Patient still having diarrhea but is a little better, abdominal pain is a little better also, no fevers. Objective - Vital Signs/Intake and Output Vital Signs (last 24 hours): Temp Pulse Resp BP Pulse Ox 98.4 F 111 H 20 110/76 95 05/30/18 22:27 05/30/18 18:24 05/29/18 10:00 05/30/18 18:24 05/29/18 10:00 Intake and Output: 05/30/18 05/31/18 18:59 06:59 Intake Total 420 Output Total 500 Balance -80 - Medications Medications: Current Medications Acetaminophen (Tylenol 325mg Tab) 650 mg PO Q4H PRN; Protocol PRN Reason: Pain, Mild (1-3) Last Admin: 05/30/18 06:04 Dose: 650 mg Acetaminophen (Tylenol 325mg Tab) 650 mg PO Q4H PRN; Protocol PRN Reason: temp >101 Last Admin: 05/30/18 16:51 Dose: 650 mg Albuterol/Ipratropium (Duoneb 3 Mg/0.5 Mg (3 Ml) Ud) 3 ml IH Q6H [facility]; Protocol Last Admin: 05/30/18 19:59 Dose: 3 ml Alprazolam (Xanax) 0.5 mg PO BID [facility]; Protocol Last Admin: 05/30/18 18:26 Dose: 0.5 mg Arformoterol Tartrate (Brovana) 15 mcg IH [id number] [facility]; Protocol Last Admin: 05/30/18 19:59 Dose: 15 mcg Benzocaine/Menthol (Cepacol Sore Throat) 1 milagros MT Q2H PRN; Protocol PRN Reason: Sore Throat Budesonide (Pulmicort Respules) 0.5 mg IH [id number] [facility]; Protocol Last Admin: 05/30/18 19:59 Dose: 0.5 mg Heparin Sodium (Porcine) (Heparin) 5,000 units SC Q8 [facility]; Protocol Last Admin: 05/30/18 21:13 Dose: 5,000 units Piperacillin Sod/Tazobactam Sod (Zosyn 4.5 Gm In Ns 100ml) 4.5 gm in 100 mls @ 25 mls/hr IVPB Q8 [facility]; Protocol Stop: 06/01/18 09:59 Last Admin: 05/30/18 21:12 Dose: 25 mls/hr Vancomycin HCl (Vancomycin 750 Mg In Ns) 750 mg in 250 mls @ 167 mls/hr IVPB Q12H [facility]; Protocol Stop: 06/08/18 10:01 Last Admin: 05/30/18 21:12 Dose: 167 mls/hr Lactobacillus Acidophilus (Bacid Acidophilus) 1 cap PO TID [facility]; Protocol Last Admin: 05/30/18 18:24 Dose: 1 cap Lisinopril (Zestril) 40 mg PO DAILY [facility]; Protocol Last Admin: 05/30/18 09:57 Dose: 40 mg Mesalamine (Asacol Hd 800mg) 1,600 mg PO TID [facility]; Protocol Last Admin: 05/30/18 18:24 Dose: 1,600 mg Metoprolol Tartrate (Lopressor) 50 mg PO BID [facility]; Protocol Last Admin: 05/30/18 18:24 Dose: 50 mg Nystatin (Nystop Topical Powder) 0 gm TOP BID [facility] Last Admin: 05/30/18 18:27 Dose: 1 appl Ondansetron HCl (Zofran Inj) 4 mg IVP Q6H PRN; Protocol PRN Reason: Nausea/Vomiting Oxycodone/Acetaminophen (Percocet 10/325 Mg Tab) 1 tab PO Q6H PRN PRN Reason: severe pain (8-10) Last Admin: 05/30/18 21:18 Dose: 1 tab Pantoprazole Sodium (Protonix Ec Tab) 40 mg PO 0600 [facility] Last Admin: 05/30/18 06:04 Dose: 40 mg Potassium Chloride (Klor-Con 10) 10 meq PO 0800 [facility]; Protocol Last Admin: 05/30/18 07:48 Dose: 10 meq Pregabalin (Lyrica) 150 mg PO TID [facility]; Protocol Last Admin: 05/30/18 18:24 Dose: 150 mg Vancomycin HCl (Vancocin 25 Mg/Ml (Oral Use)) 250 mg PO QID [facility]; Protocol Last Admin: 05/30/18 21:14 Dose: 250 mg - Labs Labs: 05/30/18 06:30 05/30/18 06:30 - Constitutional Appears: Chronically Ill - Head Exam Head Exam: NORMAL INSPECTION - Respiratory Exam Respiratory Exam: Decreased Breath Sounds - Cardiovascular Exam Cardiovascular Exam: +S1, +S2 - GI/Abdominal Exam GI & Abdominal Exam: Soft. absent: Tenderness Assessment and Plan - Assessment and Plan (Free Text) Plan: Assessment Colonic perforation with intraperitoneal free air C. diff. associated diarrhea ulcerative colitis HTN dyslipidemia COPD morbid obesity with BMI 41 Plan continue Zosyn and PO Vancomycin day 11 of at least 14 days follow up further recommendations and plans of GI and Surgery will continue to monitor clinically
[2018-06-02] MEDS: Albuterol-Ipratrop 3 mg / 0.5 (3 ml) UD IH SCH ×4 (02:30→20:41)
[2018-06-02] MEDS: Pantoprazole 40 mg EC Tab PO SCH (06:04)
[2018-06-02] MEDS: Piperacill/Tazo 4.5gm in NS 4.5 GM/100 ML BAG IVPB SCH ×3 (06:04→21:22)
[2018-06-02 07:31] LABS: BASO # 0.07 K/mm3 (0.0-2.0); BASO % 0.9 % (0.0-3.0); EOS # 0.2 (0.0-0.7); HEMOGLOBIN 8.4 g/dL (12.0-16.0); LYMPH % 24.9 % (22.0-35.0); MEAN CELL VOLUME 84.9 fl (80.0-105.0); MEAN CORPUSCULAR HEMOGLOBIN 26.5 pg (25.0-35.0); MEAN CORPUSCULAR HGB CONC 31.2 g/dl (31.0-37.0); MEAN PLATELET VOLUME 9.8 fl (7.0-11.0); MONO # 0.8 (0.1-0.6); MONO % 9.7 % (1.0-6.0); RBC 3.17 10^6/uL (3.5-6.1); RED CELL DISTRIBUTION WIDTH 16.5 % (11.5-14.5); WHITE BLOOD COUNT 7.9 10^3/uL (4.5-11.0)
[2018-06-02] MEDS: Arformoterol 15 mcg/2 ml Inh Sol IH SCH ×2 (07:35→20:41)
[2018-06-02] MEDS: Budesonide 0.5 mg/2 ml Inhal Susp UD IH SCH ×2 (07:35→20:40)
[2018-06-02] MEDS: Potassium Chloride 10 mEq ER Tab PO SCH (08:01)
[2018-06-02] MEDS: Mesalamine 800 mg DR Tab PO SCH ×3 (10:17→17:48)
[2018-06-02] MEDS: Lactobacillus Acidophilus 500 MU Cap PO SCH ×3 (10:18→17:48)
[2018-06-02] MEDS: Nystatin 100,000 Units/gm Topical Pow(15 gm) TOP SCH ×2 (10:20→17:50)
[2018-06-02] MEDS: Vancomycin 25 MG/ML PO SCH ×4 (11:00→21:22)
--- NOTE | 2018-06-02 14:50 | CP.PCM.PN ---
Subjective - Date & Time of Evaluation Date of Evaluation: 06/02/18 Time of Evaluation: 07:00 - Subjective Subjective: GENERAL SURGERY PROGRESS NOTE FOR DR. CROCKER Patient seen and examined at bedside in the TCU. No fevers since yesterday afternoon. She is still doing well and excited to go home. She continues to have output into her colostomy. She denies nausea or vomiting. [place] were removed today. Objective - Vital Signs/Intake and Output Vital Signs (last 24 hours): Temp Pulse Resp BP Pulse Ox 100.4 F H 67 18 104/68 96 06/01/18 16:00 06/02/18 10:18 06/01/18 16:00 06/02/18 10:18 06/01/18 16:00 Intake and Output: 06/02/18 06/02/18 06:59 18:59 Intake Total 1040 Output Total 1450 Balance -410 - Medications Medications: Current Medications Acetaminophen (Tylenol 325mg Tab) 650 mg PO Q4H PRN; Protocol PRN Reason: Pain, Mild (1-3) Last Admin: 06/02/18 03:22 Dose: 650 mg Acetaminophen (Tylenol 325mg Tab) 650 mg PO Q4H PRN; Protocol PRN Reason: temp >101 Last Admin: 05/30/18 16:51 Dose: 650 mg Albuterol/Ipratropium (Duoneb 3 Mg/0.5 Mg (3 Ml) Ud) 3 ml IH Q6H [facility]; Protocol Last Admin: 06/02/18 07:35 Dose: 3 ml Alprazolam (Xanax) 0.5 mg PO BID [facility]; Protocol Last Admin: 06/02/18 10:20 Dose: 0.5 mg Arformoterol Tartrate (Brovana) 15 mcg IH [id number] [facility]; Protocol Last Admin: 06/02/18 07:35 Dose: 15 mcg Benzocaine/Menthol (Cepacol Sore Throat) 1 milagros MT Q2H PRN; Protocol PRN Reason: Sore Throat Budesonide (Pulmicort Respules) 0.5 mg IH [id number] [facility]; Protocol Last Admin: 06/02/18 07:35 Dose: 0.5 mg Ferrous Sulfate (Feosol) 324 mg PO TID [facility] Last Admin: 06/02/18 14:20 Dose: 324 mg Heparin Sodium (Porcine) (Heparin) 5,000 units SC Q8 [facility]; Protocol Last Admin: 06/02/18 14:20 Dose: 5,000 units Piperacillin Sod/Tazobactam Sod (Zosyn 4.5 Gm In Ns 100ml) 4.5 gm in 100 mls @ 25 mls/hr IVPB Q8 [facility]; Protocol Stop: 06/05/18 22:01 Last Admin: 06/02/18 06:04 Dose: 25 mls/hr Lactobacillus Acidophilus (Bacid Acidophilus) 1 cap PO TID [facility]; Protocol Last Admin: 06/02/18 14:19 Dose: 1 cap Lisinopril (Zestril) 40 mg PO DAILY [facility]; Protocol Last Admin: 06/02/18 10:21 Dose: 40 mg Mesalamine (Asacol Hd 800mg) 1,600 mg PO TID [facility]; Protocol Last Admin: 06/02/18 14:19 Dose: 1,600 mg Metoprolol Tartrate (Lopressor) 50 mg PO BID [facility]; Protocol Last Admin: 06/02/18 10:18 Dose: 50 mg Nystatin (Nystop Topical Powder) 0 gm TOP BID [facility] Last Admin: 06/02/18 10:20 Dose: 1 appl Ondansetron HCl (Zofran Inj) 4 mg IVP Q6H PRN; Protocol PRN Reason: Nausea/Vomiting Oxycodone/Acetaminophen (Percocet 10/325 Mg Tab) 1 tab PO Q6H PRN; Protocol PRN Reason: Pain, severe (8-10) Last Admin: 06/01/18 16:48 Dose: 1 tab Pantoprazole Sodium (Protonix Ec Tab) 40 mg PO 0600 [facility] Last Admin: 06/02/18 06:04 Dose: 40 mg Potassium Chloride (Klor-Con 10) 10 meq PO 0800 [facility]; Protocol Last Admin: 06/02/18 08:01 Dose: 10 meq Pregabalin (Lyrica) 150 mg PO TID [facility]; Protocol Last Admin: 06/02/18 14:22 Dose: 150 mg Vancomycin HCl (Vancocin 25 Mg/Ml (Oral Use)) 250 mg PO QID [facility]; Protocol Last Admin: 06/02/18 14:22 Dose: 250 mg - Labs Labs: 06/02/18 06:50 04/14/19 06:30 - Constitutional Appears: Non-toxic, No Acute Distress - Head Exam Head Exam: ATRAUMATIC, NORMAL INSPECTION - Eye Exam Eye Exam: EOMI, Normal appearance - Respiratory Exam Respiratory Exam: NORMAL BREATHING PATTERN. absent: Respiratory Distress - Cardiovascular Exam Cardiovascular Exam: +S1, +S2 - GI/Abdominal Exam GI & Abdominal Exam: Soft. absent: Distended, Firm, Guarding, Rigid, Tenderness, Rebound Additional comments: Tamara in place - removed Ostomy with liquid stool - Neurological Exam Neurological Exam: Alert, Awake, Oriented x3 - Psychiatric Exam Psychiatric exam: Normal Affect, Normal Mood - Skin Skin Exam: Dry, Normal Color, Warm Assessment and Plan - Assessment and Plan (Free Text) Assessment: 57yo F with rectosigmoid perforation s/p colostomy who is POD#14 s/p Aric's procedure - Afebrile since yesterday, WBC 7.9, cx negative - Continue Abx as per ID, pt currently on Zosyn and PO vanco, will need to be switched to PO Abx - Tolerating regular diet & having bowel function - Pt using IS and ambulating - Pt clear for DC home tomorrow from surgical standpoint with PO Abx per ID - Discussed plan with Dr. Weston Gonzales PGY-4
--- NOTE | 2018-06-02 15:03 | PN ---
DATE: 06/02/2018 SUBJECTIVE: The patient is a 57-year-old female with a history of ulcerative colitis who suffered a perforated viscus during colonoscopy. She was admitted post procedure to the intensive care unit, was treated with intravenous antibiotics and did well. She did however develop C. difficile colitis and was switched to vancomycin. During her hospital stay, she is followed by Dr. Rowland, disabilities caregiver; Dr. Ontiveros, the surgeon and Dr. Hooker, the Infectious Disease specialist. Post procedure, because of the perforation, she underwent emergency surgery and underwent Aric pouch procedure and has a colostomy in the left abdomen. When seen today, the patient is in good spirits. She is feeling well. She was glad to see that her fevers have subsided. Her white blood cell count was down to 7.9. Hemoglobin and hematocrit were 8.4 and 26.9 respectively as of this morning. ASSESSMENT AND PLAN: She continues to receive Zosyn as per Infectious Disease, Dr. Hooker and Dr. Olmstead, today is day 11 14. She is also receiving oral vancomycin for the Clostridium difficile colitis. The patient is looking forward to discharge to home in the morning. I will be continuing the vancomycin for a few more days post discharge. We will discuss with Infectious Disease as to the need for continuing oral antibiotics for the peritonitis suffered with the perforated viscus. Medications to be called in to [facility] pharmacy for continued pain control. The patient will be reevaluated in the morning and if she remained stable, will be discharged to home. Kane Langley MD
[2018-06-02 16:44] VITALS: RESP 14; TEMP 98.3; O2SAT 100
[2018-06-02] MEDS: Oxycodone/Acetaminophen 10/325 mg Tab PO PRN (21:20)
--- NOTE | 2018-06-03 00:16 | CP.PCM.PN ---
Subjective - Date & Time of Evaluation Date of Evaluation: 06/02/18 Time of Evaluation: 07:10 - Subjective Subjective: Today without fever, not in distress. Objective - Vital Signs/Intake and Output Vital Signs (last 24 hours): Temp Pulse Resp BP Pulse Ox 100.4 F H 111 H 18 105/65 96 06/01/18 16:00 06/01/18 18:47 06/01/18 16:00 06/01/18 18:47 06/01/18 16:00 - Medications Medications: Current Medications Acetaminophen (Tylenol 325mg Tab) 650 mg PO Q4H PRN; Protocol PRN Reason: Pain, Mild (1-3) Last Admin: 05/31/18 13:32 Dose: 650 mg Acetaminophen (Tylenol 325mg Tab) 650 mg PO Q4H PRN; Protocol PRN Reason: temp >101 Last Admin: 05/30/18 16:51 Dose: 650 mg Albuterol/Ipratropium (Duoneb 3 Mg/0.5 Mg (3 Ml) Ud) 3 ml IH Q6H [facility]; Protocol Last Admin: 06/01/18 19:51 Dose: 3 ml Alprazolam (Xanax) 0.5 mg PO BID [facility]; Protocol Last Admin: 06/01/18 18:48 Dose: 0.5 mg Arformoterol Tartrate (Brovana) 15 mcg IH [id number] [facility]; Protocol Last Admin: 06/01/18 19:51 Dose: 15 mcg Benzocaine/Menthol (Cepacol Sore Throat) 1 milagros MT Q2H PRN; Protocol PRN Reason: Sore Throat Budesonide (Pulmicort Respules) 0.5 mg IH [id number] [facility]; Protocol Last Admin: 06/01/18 19:51 Dose: 0.5 mg Ferrous Sulfate (Feosol) 324 mg PO TID [facility] Last Admin: 06/01/18 18:47 Dose: 324 mg Heparin Sodium (Porcine) (Heparin) 5,000 units SC Q8 [facility]; Protocol Last Admin: 06/01/18 15:49 Dose: 5,000 units Piperacillin Sod/Tazobactam Sod (Zosyn 4.5 Gm In Ns 100ml) 4.5 gm in 100 mls @ 25 mls/hr IVPB Q8 [facility]; Protocol Stop: 06/05/18 22:01 Last Admin: 06/01/18 15:39 Dose: 25 mls/hr Lactobacillus Acidophilus (Bacid Acidophilus) 1 cap PO TID [facility]; Protocol Last Admin: 06/01/18 18:47 Dose: 1 cap Lisinopril (Zestril) 40 mg PO DAILY [facility]; Protocol Last Admin: 06/01/18 10:12 Dose: 40 mg Mesalamine (Asacol Hd 800mg) 1,600 mg PO TID [facility]; Protocol Last Admin: 06/01/18 18:47 Dose: 1,600 mg Metoprolol Tartrate (Lopressor) 50 mg PO BID [facility]; Protocol Last Admin: 06/01/18 18:47 Dose: 50 mg Nystatin (Nystop Topical Powder) 0 gm TOP BID [facility] Last Admin: 06/01/18 18:49 Dose: 1 appl Ondansetron HCl (Zofran Inj) 4 mg IVP Q6H PRN; Protocol PRN Reason: Nausea/Vomiting Oxycodone/Acetaminophen (Percocet 10/325 Mg Tab) 1 tab PO Q6H PRN; Protocol PRN Reason: Pain, severe (8-10) Last Admin: 06/01/18 16:48 Dose: 1 tab Pantoprazole Sodium (Protonix Ec Tab) 40 mg PO 0600 [facility] Last Admin: 06/01/18 05:19 Dose: 40 mg Potassium Chloride (Klor-Con 10) 10 meq PO 0800 [facility]; Protocol Last Admin: 06/01/18 08:08 Dose: 10 meq Pregabalin (Lyrica) 150 mg PO TID [facility]; Protocol Last Admin: 06/01/18 15:50 Dose: 150 mg Vancomycin HCl (Vancocin 25 Mg/Ml (Oral Use)) 250 mg PO QID [facility]; Protocol Last Admin: 06/01/18 18:48 Dose: 250 mg - Labs Labs: 06/01/18 07:00 05/30/18 06:30 - Constitutional Appears: Chronically Ill - Head Exam Head Exam: NORMAL INSPECTION Assessment and Plan - Assessment and Plan (Free Text) Plan: Assessment Colonic perforation with intraperitoneal free air C. diff. associated diarrhea ulcerative colitis HTN dyslipidemia COPD morbid obesity with BMI 41 Plan continue Zosyn and PO Vancomycin day 12 of at least 14 days follow up further recommendations and plans of GI and Surgery will continue to monitor clinically
[2018-06-03] MEDS: Albuterol-Ipratrop 3 mg / 0.5 (3 ml) UD IH SCH ×3 (02:00→13:20)
[2018-06-03] MEDS: Piperacill/Tazo 4.5gm in NS 4.5 GM/100 ML BAG IVPB SCH (05:51)
[2018-06-03] MEDS: Pantoprazole 40 mg EC Tab PO SCH (05:52)
[2018-06-03] MEDS: Arformoterol 15 mcg/2 ml Inh Sol IH SCH (07:22)
[2018-06-03] MEDS: Budesonide 0.5 mg/2 ml Inhal Susp UD IH SCH (07:23)
[2018-06-03] MEDS: Potassium Chloride 10 mEq ER Tab PO SCH (08:08)
[2018-06-03] MEDS: Mesalamine 800 mg DR Tab PO SCH (10:34)
[2018-06-03] MEDS: Lactobacillus Acidophilus 500 MU Cap PO SCH (10:34)
[2018-06-03] MEDS: Vancomycin 25 MG/ML PO SCH (10:35)
[2018-06-03] MEDS: Nystatin 100,000 Units/gm Topical Pow(15 gm) TOP SCH (10:35)
[2018-06-03 10:46] VITALS: BP 130/78; PULSE 113
--- NOTE | 2018-06-03 11:04 | CP.PCM.PN ---
Subjective - Date & Time of Evaluation Date of Evaluation: 06/03/18 Time of Evaluation: 07:00 - Subjective Subjective: GENERAL SURGERY PROGRESS NOTE FOR DR. CROCKER Patient seen and examined at bedside in the TCU. She is excited for her discharge today. Her colostomy was leaking again so wound care nurse re- evaluated and changed the ostomy. Pt has [employer] supplies that will be sent to her house. She is ambulating on her own, tolerating regular diet, denies nausea or vomiting. Objective - Vital Signs/Intake and Output Vital Signs (last 24 hours): Temp Pulse Resp BP Pulse Ox 98.3 F 113 H 14 130/78 100 06/02/18 10:00 06/03/18 10:43 06/02/18 10:00 06/03/18 10:43 06/02/18 10:00 - Medications Medications: Current Medications Acetaminophen (Tylenol 325mg Tab) 650 mg PO Q4H PRN; Protocol PRN Reason: Pain, Mild (1-3) Last Admin: 06/02/18 15:35 Dose: 650 mg Acetaminophen (Tylenol 325mg Tab) 650 mg PO Q4H PRN; Protocol PRN Reason: temp >101 Last Admin: 05/30/18 16:51 Dose: 650 mg Albuterol/Ipratropium (Duoneb 3 Mg/0.5 Mg (3 Ml) Ud) 3 ml IH Q6H [facility]; Protocol Last Admin: 06/03/18 07:23 Dose: 3 ml Alprazolam (Xanax) 0.5 mg PO BID [facility]; Protocol Last Admin: 06/03/18 10:36 Dose: 0.5 mg Arformoterol Tartrate (Brovana) 15 mcg IH [id number] [facility]; Protocol Last Admin: 06/03/18 07:22 Dose: 15 mcg Benzocaine/Menthol (Cepacol Sore Throat) 1 milagros MT Q2H PRN; Protocol PRN Reason: Sore Throat Budesonide (Pulmicort Respules) 0.5 mg IH [id number] [facility]; Protocol Last Admin: 06/03/18 07:23 Dose: 0.5 mg Ferrous Sulfate (Feosol) 324 mg PO TID [facility] Last Admin: 06/03/18 10:34 Dose: 324 mg Heparin Sodium (Porcine) (Heparin) 5,000 units SC Q8 [facility]; Protocol Last Admin: 06/03/18 05:52 Dose: 5,000 units Piperacillin Sod/Tazobactam Sod (Zosyn 4.5 Gm In Ns 100ml) 4.5 gm in 100 mls @ 25 mls/hr IVPB Q8 [facility]; Protocol Stop: 06/05/18 22:01 Last Admin: 06/03/18 05:51 Dose: 25 mls/hr Lactobacillus Acidophilus (Bacid Acidophilus) 1 cap PO TID [facility]; Protocol Last Admin: 06/03/18 10:34 Dose: 1 cap Lisinopril (Zestril) 40 mg PO DAILY [facility]; Protocol Last Admin: 06/03/18 10:44 Dose: 40 mg Mesalamine (Asacol Hd 800mg) 1,600 mg PO TID [facility]; Protocol Last Admin: 06/03/18 10:34 Dose: 1,600 mg Metoprolol Tartrate (Lopressor) 50 mg PO BID [facility]; Protocol Last Admin: 06/03/18 10:43 Dose: 50 mg Nystatin (Nystop Topical Powder) 0 gm TOP BID [facility] Last Admin: 06/03/18 10:35 Dose: 1 appl Ondansetron HCl (Zofran Inj) 4 mg IVP Q6H PRN; Protocol PRN Reason: Nausea/Vomiting Oxycodone/Acetaminophen (Percocet 10/325 Mg Tab) 1 tab PO Q6H PRN; Protocol PRN Reason: Pain, severe (8-10) Last Admin: 06/02/18 21:20 Dose: 1 tab Pantoprazole Sodium (Protonix Ec Tab) 40 mg PO 0600 [facility] Last Admin: 06/03/18 05:52 Dose: 40 mg Potassium Chloride (Klor-Con 10) 10 meq PO 0800 [facility]; Protocol Last Admin: 06/03/18 08:08 Dose: 10 meq Pregabalin (Lyrica) 150 mg PO TID [facility]; Protocol Last Admin: 06/03/18 10:44 Dose: 150 mg Vancomycin HCl (Vancocin 25 Mg/Ml (Oral Use)) 250 mg PO QID [facility]; Protocol Last Admin: 06/03/18 10:35 Dose: 250 mg - Labs Labs: 06/02/18 06:50 05/30/18 06:30 - Constitutional Appears: Non-toxic, No Acute Distress - Head Exam Head Exam: ATRAUMATIC, NORMAL INSPECTION - Eye Exam Eye Exam: EOMI, Normal appearance - Respiratory Exam Respiratory Exam: NORMAL BREATHING PATTERN. absent: Respiratory Distress - Cardiovascular Exam Cardiovascular Exam: +S1, +S2 - GI/Abdominal Exam GI & Abdominal Exam: Soft. absent: Distended, Firm, Guarding, Rigid, Tenderness, Rebound Additional comments: Colostomy in place with soft stool in bag - Neurological Exam Neurological Exam: Alert, Awake, Oriented x3 - Psychiatric Exam Psychiatric exam: Normal Affect, Normal Mood - Skin Skin Exam: Dry, Normal Color, Warm Assessment and Plan - Assessment and Plan (Free Text) Assessment: 57yo F with rectosigmoid perforation s/p colostomy who is POD#15 s/p Aric's procedure - Clear for discharge home from surgical standpoint - Discussed Abx with ID, patient to continue PO vanco for 2 more days at home - Patient to follow up with Dr. Crocker in his office in 1 week, call to make appointment - May shower - Avoid heavy lifting for 4-6 weeks after surgery - Patient encouraged to continue ambulation and IS use at home - Discussed plan with Dr. Weston Gonzales PGY-4
--- NOTE | 2018-06-03 22:55 | CP.PCM.PN ---
Subjective - Date & Time of Evaluation Date of Evaluation: 06/03/18 Time of Evaluation: 07:00 - Subjective Subjective: No more fevers, abdominal pain and diarrhea are better. Objective - Vital Signs/Intake and Output Vital Signs (last 24 hours): Temp Pulse Resp BP Pulse Ox 98.3 F 103 H 14 101/68 100 06/02/18 10:00 06/02/18 17:49 06/02/18 10:00 06/02/18 17:49 06/02/18 10:00 - Medications Medications: Current Medications Acetaminophen (Tylenol 325mg Tab) 650 mg PO Q4H PRN; Protocol PRN Reason: Pain, Mild (1-3) Last Admin: 06/02/18 15:35 Dose: 650 mg Acetaminophen (Tylenol 325mg Tab) 650 mg PO Q4H PRN; Protocol PRN Reason: temp >101 Last Admin: 05/30/18 16:51 Dose: 650 mg Albuterol/Ipratropium (Duoneb 3 Mg/0.5 Mg (3 Ml) Ud) 3 ml IH Q6H [facility]; Protocol Last Admin: 06/02/18 20:41 Dose: 3 ml Alprazolam (Xanax) 0.5 mg PO BID [facility]; Protocol Last Admin: 06/02/18 17:51 Dose: 0.5 mg Arformoterol Tartrate (Brovana) 15 mcg IH [id number] [facility]; Protocol Last Admin: 06/02/18 20:41 Dose: 15 mcg Benzocaine/Menthol (Cepacol Sore Throat) 1 milagros MT Q2H PRN; Protocol PRN Reason: Sore Throat Budesonide (Pulmicort Respules) 0.5 mg IH [id number] [facility]; Protocol Last Admin: 06/02/18 20:40 Dose: 0.5 mg Ferrous Sulfate (Feosol) 324 mg PO TID [facility] Last Admin: 06/02/18 17:48 Dose: 324 mg Heparin Sodium (Porcine) (Heparin) 5,000 units SC Q8 [facility]; Protocol Last Admin: 06/02/18 21:22 Dose: 5,000 units Piperacillin Sod/Tazobactam Sod (Zosyn 4.5 Gm In Ns 100ml) 4.5 gm in 100 mls @ 25 mls/hr IVPB Q8 [facility]; Protocol Stop: 06/05/18 22:01 Last Admin: 06/02/18 21:22 Dose: 25 mls/hr Lactobacillus Acidophilus (Bacid Acidophilus) 1 cap PO TID [facility]; Protocol Last Admin: 06/02/18 17:48 Dose: 1 cap Lisinopril (Zestril) 40 mg PO DAILY [facility]; Protocol Last Admin: 06/02/18 10:21 Dose: 40 mg Mesalamine (Asacol Hd 800mg) 1,600 mg PO TID [facility]; Protocol Last Admin: 06/02/18 17:48 Dose: 1,600 mg Metoprolol Tartrate (Lopressor) 50 mg PO BID [facility]; Protocol Last Admin: 06/02/18 17:49 Dose: 50 mg Nystatin (Nystop Topical Powder) 0 gm TOP BID [facility] Last Admin: 06/02/18 17:50 Dose: 1 appl Ondansetron HCl (Zofran Inj) 4 mg IVP Q6H PRN; Protocol PRN Reason: Nausea/Vomiting Oxycodone/Acetaminophen (Percocet 10/325 Mg Tab) 1 tab PO Q6H PRN; Protocol PRN Reason: Pain, severe (8-10) Last Admin: 06/02/18 21:20 Dose: 1 tab Pantoprazole Sodium (Protonix Ec Tab) 40 mg PO 0600 [facility] Last Admin: 06/02/18 06:04 Dose: 40 mg Potassium Chloride (Klor-Con 10) 10 meq PO 0800 [facility]; Protocol Last Admin: 06/02/18 08:01 Dose: 10 meq Pregabalin (Lyrica) 150 mg PO TID [facility]; Protocol Last Admin: 06/02/18 17:49 Dose: 150 mg Vancomycin HCl (Vancocin 25 Mg/Ml (Oral Use)) 250 mg PO QID [facility]; Protocol Last Admin: 06/02/18 21:22 Dose: 250 mg - Labs Labs: 06/02/18 06:50 05/30/18 06:30 - Constitutional Appears: Non-toxic, Chronically Ill - Head Exam Head Exam: NORMAL INSPECTION - Respiratory Exam Respiratory Exam: Decreased Breath Sounds - Cardiovascular Exam Cardiovascular Exam: +S1, +S2 - GI/Abdominal Exam GI & Abdominal Exam: Soft. absent: Tenderness Assessment and Plan - Assessment and Plan (Free Text) Plan: Assessment S/P Colonic perforation with intraperitoneal free air C. diff. associated diarrhea ulcerative colitis HTN dyslipidemia COPD morbid obesity with BMI 41 Plan on Zosyn and PO Vancomycin day 13 of 10-14 days - can d/c Zosyn and continue PO Vancomycin discussed with surgical team
== END 2018-06-03 13:47 | disposition home or self-care (01) | DRG 945 ==
LOC: TRCU 14:10
PROVIDERS: ADMIT Internal Medicine; ATTEND Internal Medicine
PROC: 3E0F7GC Introduction of Other Therapeutic Substance into Respiratory Tract, Via Natural or Artificial Opening (ICD-10-PCS; 2018-05-26)
PROC: F07Z9ZZ Gait Training/Functional Ambulation Treatment (ICD-10-PCS; principal; 2018-05-27)
PROC: F08Z4ZZ Home Management Treatment (ICD-10-PCS; 2018-05-27)
DX: R53.1 Weakness (principal); K51.90 Ulcerative colitis, unspecified, without complications; A04.72 Enterocolitis due to Clostridium difficile, not specified as recurrent; R65.10 Systemic inflammatory response syndrome (SIRS) of non-infectious origin without acute organ dysfunction; Z68.41 Body mass index [BMI] 40.0-44.9, adult; Z93.3 Colostomy status; I10 Essential (primary) hypertension; E66.01 Morbid (severe) obesity due to excess calories; J44.9 Chronic obstructive pulmonary disease, unspecified; D35.1 Benign neoplasm of parathyroid gland; E78.5 Hyperlipidemia, unspecified; Z90.49 Acquired absence of other specified parts of digestive tract; Z88.2 Allergy status to sulfonamides

== ENCOUNTER 2018-05-29 19:47 | Outpatient (CLI) | payer MEDICARE, MEDICAID | END 2018-05-29 19:48 | disposition home or self-care (01) | LOC: RAD 19:47 ==